=== PATIENT | female | born 1940 | race Caucasian/White ===

== ENCOUNTER 2016-05-30 12:37 | Outpatient (RCR) | payer MEDICARE, OTHER ==
[~2016-05-30 12:37] MED LIST: AC325T PO; ADV1DS PO; ALBU17AE3; ALBU5SOL10 IH; ASCO-262 PO; ASCO500T20 PO; ASP81CT PO; ASP81TEC PO; BMT1T; CA C1TAB26 PO; CAND1TAB4 PO; CEFU500T5 PO; CND32T; DCS100C PO; DOCU100T7 PO; EZET10TA5 PO; FISH OIL 1,2001 EAC1 PO; FURO20TA4 PO; GARL400T13 PO; HYDR50CA PO; IBUP-30 PO; LETR2.5T5 PO; LVT.1T PO; METH4TAB PO; NEBI5TAB8 PO; NFNEB10T PO; OMEP-10 PO; OXAZ10CA25 PO; OXAZ15CA PO; OXAZEPAM; POLY119P PO; POTA8TAB PO; PRD10T PO; TIOT18CA PO; TRAM150C3 PO; [UNRECOGNIZED DRUG - OTHER]
[2016-05-30] MEDS ORDERED: DENOSUMAB 60 MG/1 ML (PROLIA) CANCER CTR SQ SCH (14:00)
== END 2016-08-28 | disposition home or self-care (01) ==
LOC: ONC 12:37
PROVIDERS: ATTEND Internal Medicine Hematology & Oncology
DX: C50.111 Malignant neoplasm of central portion of right female breast (principal); C73 Malignant neoplasm of thyroid gland; M85.80 Other specified disorders of bone density and structure, unspecified site; I89.0 Lymphedema, not elsewhere classified; R21 Rash and other nonspecific skin eruption; J44.9 Chronic obstructive pulmonary disease, unspecified; Z17.0 Estrogen receptor positive status [ER+]; Z79.811 Long term (current) use of aromatase inhibitors; Z79.899 Other long term (current) drug therapy
CPT/HCPCS: 96372; 99213

== ENCOUNTER 2016-06-06 14:51 | Outpatient (RCR) | payer MEDICARE, OTHER | END 2016-06-06 16:40 | disposition home or self-care (01) | PROVIDERS: ATTEND Nurse Practitioner Adult Health | DX: I89.0 Lymphedema, not elsewhere classified (principal); Z85.3 Personal history of malignant neoplasm of breast ==

== ENCOUNTER 2016-09-25 21:05 | Emergency (ER) | payer MEDICARE, OTHER ==
[~2016-09-25] VITALS: Ht 147.3 cm; Wt 89.4 kg
[2016-09-25] MEDS ORDERED: ASPIRIN 81 MG CHEW (CHILDREN'S ASA) PO ONE (21:15)
--- NOTE | 2016-09-25 21:22 | ED Chest Pain ---
General Stated Complaint: CHEST PAIN,SOB Source: patient Exam Limitations: no limitations History of Present Illness Time seen by provider: 21:10 Initial Comments Here with complaint of chest heaviness for the last 2 hours. She apparently was out and about to several appointments today and was not wearing her oxygen. She states that she never wears a out because she doesn't want to be seen with it on. Chest heaviness continues but is better with oxygen. She does have COPD. Denies nausea, vomiting, weakness or diaphoresis. Timing/Duration: 1-3 hours Severity/Quality: moderate, pressure Location: central Radiation: no radiation Activities at Onset: activity Prior CP/Workup: no prior chest pain Modifying Factors: improves with oxygen, improves with rest ASA po CONTACT CENTER CONSULTANT: No NTG SL CONTACT CENTER CONSULTANT: No Associated Symptoms: No abdominal pain, No fever/chills, No nausea/vomiting, shortness of breath, No weakness Allergies and Home Medications Allergies Coded Allergies: Sulfa (Sulfonamide Antibiotics) (Unverified Allergy, Mild, HIVES, 04/21/05) codeine (Unverified Allergy, Mild, NAUSEA, 04/21/05) atorvastatin (Verified Allergy, Unknown, 04/21/05) cephalexin (Unverified Allergy, Unknown, PT HAS REC ROCEPHIN,CEFTIN & AUGMENTIN IN PAST, 12/19/11) PER DR. WASSERMAN'S OFFICE PT HAS RECEIVED ROCEPHIN, CEFTIN, AND AUGMENTIN IN PAST WITHOUT PROBLEMS doxycycline (Verified Allergy, Unknown, 04/21/05) gatifloxacin (Verified Allergy, Unknown, 04/21/05) grepafloxacin (Verified Allergy, Unknown, 04/21/05) indapamide (Unverified Allergy, Unknown, 11/21/14) penbutolol (Verified Allergy, Unknown, 04/21/05) sulfamethoxazole (Verified Allergy, Unknown, 04/21/05) trimethoprim (Verified Allergy, Unknown, 04/21/05) Home Medications Acetaminophen 325 Mg Tablet, 325 MG PO Q6H PRN, (Reported) PRN PAIN Albuterol Sulfate 5 Mg/Ml Solution, 2 PUFF IH Q4H PRN, (Reported) COPD Ascorbate Calcium 500 Mg Tablet, 500 MG PO DAILY, (Reported) Aspirin 81 Mg Tabec, 81 MG PO DAILY, (Reported) Ca Cmb No.1/Vit D3/B-6/Fa/B12 1 Each Tablet, 2,000 UNIT PO DAILY, (Reported) Candesartan Cilexetil/Hctz 1 Each Tablet, 1 TAB PO DAILY, (Reported) 32-12.5 MG Docusate Sodium 100 Mg Capsule, 100 MG PO DAILY PRN, (Reported) PRN CONSTIPATION Ezetimibe 10 Mg Tablet, 10 MG PO DAILY, (Reported) Fluticasone/Salmeterol 250 Mcg/50 Mcg Inh, 1 PUFF PO BID, (Reported) ADVAIR 250/50 MCG Furosemide 20 Mg Tablet, 20 MG PO DAILY, (Reported) Hydroxyzine Pamoate 50 Mg Capsule, 50 MG PO Q6H, #20 Prescribed by: DANNIE BARBER on 11/14/142104 Ibuprofen 200 Mg Tablet, 400 MG PO DAILY PRN, (Reported) PRN FOR KNEE PAIN Letrozole 2.5 Mg Tablet, 2.5 MG PO DAILY, (Reported) Levothyroxine Sodium 125 Mcg Tablet, 125 MCG PO DAILY, #90 (Reported) Metformin HCl 500 Mg Tab.er.24h, #180 (Reported) Methylprednisolone 4 Mg Tab.ds.pk, 4 MG PO UD, #1 Prescribed by: DANNIE BARBER on 11/14/142104 Nebivolol Hcl 5 Mg Tablet, 5 MG PO DAILY, (Reported) Omeprazole 20 Mg Capsule.dr, 20 MG PO BID, (Reported) Oxazepam 15 Mg Capsule, 15 MG PO DAILY IN AM, (Reported) TAKE ALONG WITH 10MG IN AM = TOTAL OF 25MG IN AM Oxazepam 10 Mg Capsule, 10 MG PO MORNING AND BEDTIME, (Reported) TAKES 10MG ALONG WITH 15MG IN AM AND JUST 10MG AT BEDTIME Oxazepam 10 Mg Capsule, 20 MG PO AT LUNCH & EVENING, (Reported) Polyethylene Glycol 119 Gm Btl, 17 GM PO DAILY, (Reported) Potassium Chloride 8 Meq Tablet.sa, 8 MEQ PO DAILY, (Reported) Tiotropium [place] 18 Mcg Cap.w.dev, 1 PUFF PO DAILY, (Reported) Review of Systems Constitutional: see HPI, No chills, No fever EENTM: No Symptoms Reported Respiratory: See HPI, Denies Cough, Shortness of Air Cardiovascular: Chest Pain, Denies Irregular Heart Rate, Denies Lightheadedness Gastrointestinal: Denies Abdominal Pain, Denies Diarrhea, Denies Nausea, Denies Vomiting Genitourinary: No Symptoms Reported Musculoskeletal: no symptoms reported Skin: no symptoms reported Psychiatric/Neurological: No Symptoms Reported All Other Systems Reviewed Negative Unless Noted: Yes Past [id number]-[id number] Hx Patient Social History Alcohol Use: Denies Use Recreational Drug Use: No Smoking Status: Former Smoker Former Smoker/When Quit: Mar 10, 2004 Recent Foreign Travel: No Contact w/Someone Who Travel: No Immunizations Up To Date Tetanus Booster (TDap): Less than 5yrs Date of Pneumonia Vaccine: Dec 18, 2007 Date of Influenza Vaccine: Dec 13, 2011 Surgeries HX Surgeries: Yes (D AND C'S, RIGHT HAND SX, LASER EYE SURGERY 11/08/14) Surgeries: Eye Surgery Respiratory Hx Respiratory Disorders: Yes (HOME O2 AT 2L/NC) Respiratory Disorders: Asthma, Chronic Bronchitis, COPD Cardiovascular Hx Cardiac Disorders: Yes (HOME O2 AT 2L/NC) Cardiac Disorders: Hypertension Neurological Hx Neurological Disorders: No 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 System Hx 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 Disorders: No Genitourinary Hx Genitourinary Disorders: No Gastrointestinal Hx Gastrointestinal Disorders: Yes Gastrointestinal Disorders: Chronic Constipation Musculoskeletal Hx Musculoskeletal Disorders: Yes (ARTHRITIS) Musculoskeletal Disorders: Arthritis Endocrine Hx Endocrine Disorders: Yes Endocrine Disorders: Hypothyroidsim HEENT HX ENT Disorders: Yes (BAD TEETH) HEENT Disorders: Cataract Cancer Hx Cancer: Yes Cancer: Breast Psychosocial Hx Psychiatric Problems: Yes Behavioral Health Disorders: Anxiety, Depression Integumentary HX Skin/Integumentary Disorder: Yes Skin/Integumentary Disorders: Psoriasis Blood Transfusions Hx Blood Disorders: No Reviewed Nursing Assessment Reviewed/Agree w Nursing PMH: Yes Physical Exam Vital Signs Vital Sign - Last 12Hours Capillary Refill : General Appearance: No Apparent Distress, WD/WN HEENT: PERRL/EOMI, Pharynx Normal Neck: Non Tender, Supple Respiratory: Chest Non Tender, No Respiratory Distress, Decreased Breath Sounds , No Wheezing Cardiovascular: Regular Rate, Rhythm, No Murmur Gastrointestinal: Non Tender, Soft Extremity: Normal Range of Motion, Non Tender, No Calf Tenderness Neurologic/Psychiatric: Alert, Oriented x3 Skin: Normal Color, Warm/Dry Progress/Results/Core Measures Results/Orders Lab Results Laboratory Tests Test 09/25/16 21:18 09/25/16 22:40 Range/Units White Blood Count 12.2 H 4.3-11.0 10^3/uL Red Blood Count 3.86 L 4.35-5.85 10^6/uL Hemoglobin 11.4 L 11.5-16.0 G/DL Hematocrit 35 35-52 % Mean Corpuscular Volume 89 80-99 FL Mean Corpuscular Hemoglobin 30 25-34 PG Mean Corpuscular Hemoglobin Concent 33 32-36 G/DL Red Cell Distribution Width 13.6 10.0-14.5 % Platelet Count 358 130-400 10^3/uL Mean Platelet Volume 10.7 H 7.4-10.4 FL Neutrophils (%) (Auto) 77 H 42-75 % Lymphocytes (%) (Auto) 15 12-44 % Monocytes (%) (Auto) 6 0-12 % Eosinophils (%) (Auto) 2 0-10 % Basophils (%) (Auto) 1 0-10 % Neutrophils # (Auto) 9.4 H 1.8-7.8 X 10^3 Lymphocytes # (Auto) 1.8 1.0-4.0 X 10^3 Monocytes # (Auto) 0.7 0.0-1.0 X 10^3 Eosinophils # (Auto) 0.2 0.0-0.3 10^3/uL Basophils # (Auto) 0.1 0.0-0.1 10^3/uL Prothrombin Time 11.9 L 12.2-14.7 SEC INR Comment 0.9 0.8-1.4 Activated Partial Thromboplast Time 26 24-35 SEC Sodium Level 136 135-145 MMOL/L Potassium Level 3.8 3.6-5.0 MMOL/L Chloride Level 95 L 98-107 MMOL/L Carbon Dioxide Level 27 21-32 MMOL/L Anion Gap 14 5-14 MMOL/L Blood Urea Nitrogen 18 7-18 MG/DL Creatinine 0.96 0.60-1.30 MG/DL Estimat Glomerular Filtration Rate 56 BUN/Creatinine Ratio 19 Glucose Level 113 H 70-105 MG/DL Calcium Level 9.1 8.5-10.1 MG/DL Magnesium Level 1.8 1.8-2.4 MG/DL Total Bilirubin 0.4 0.1-1.0 MG/DL Aspartate Amino Transf (AST/SGOT) 14 5-34 U/L Alanine Aminotransferase (ALT/SGPT) 13 0-55 U/L Alkaline Phosphatase 86 40-136 U/L Myoglobin 70.3 10.0-92.0 NG/ML Troponin I < 0.30 < 0.30 <0.30 NG/ML B-Type Natriuretic Peptide 61.5 <100.0 PG/ML Total Protein 6.7 6.4-8.2 GM/DL Albumin 4.0 3.2-4.5 GM/DL My Orders Orders - KATE MO MD Cbc With Automated Diff (09/25/16 21:09) Magnesium (09/25/16 21:09) Chest 1 View, Ap/Pa Only (09/25/16 21:09) Ekg Tracing (09/25/16 21:09) Cardiac Profile 1 (09/25/16 21:) Comprehensive Metabolic Panel (09/25/16 21:) Myoglobin Serum (09/25/16:) Protime With Inr (09/25/16 21:09) Partial Thromboplastin Time (09/25/16 21:09) O2 (09/25/16 21:09) Monitor-Rhythm Ecg Trace Only (09/25/16 21:09) Lipid Panel (09/26/16 06:00) Aspirin Chewable Tablet (Baby Aspirin Ch (09/25/16 21:15) Saline Lock/Iv-Start (09/25/16 21:09) Albuterol/Ipra Inhalation Soln (Duoneb I (09/25/16 21:30) Svn Sm Volume Nebulizer Rt-Rfs (09/25/16 21:22) BNP (09/25/16 21:25) Albuterol Pre-Mix Nebs (Rt) (Proventil P (09/25/16 21:40) Troponin I (09/25/16 22:39) Prednisone Tablet (Deltasone Tablet) (09/25/16 22:45) Ekg Tracing (09/25/16 22:48) Medications Given in ED Current Medications Medications Dose Ordered Sig/Wili Route Start Time Stop Time Status Last Admin Dose Admin Albuterol Sulfate 2.5 mg STK-MED ONCE .ROUTE 09/25/16 21:40 09/25/16 21:46 DC 09/25/16 21:54 5 MG Albuterol/ Ipratropium 3 ml ONCE ONCE INH 09/25/16 21:30 09/25/16 21:31 DC 09/25/16 21:51 3 ML Aspirin 324 mg ONCE ONCE PO 09/25/16 21:15 09/25/16 21:16 DC 09/25/16 21:25 324 MG Prednisone 20 mg ONCE ONCE PO 09/25/16 22:45 09/25/16 22:46 DC 09/25/16 22:54 20 MG Vital Signs/I&O Vital Sign - Last 12Hours 09/25/16 09/25/16 09/25/16 09/25/16 21:06 21:06 21:06 21:51 Temp 98.6 Pulse 77 Resp 22 B/P (MAP) 134/91 Pulse Ox 95 95 97 O2 Delivery Nasal Cannula Nasal Cannula Nasal Cannula O2 Flow Rate 2.00 2.00 2.00 2.00 09/25/16 21:54 Pulse Ox 97 O2 Delivery Nasal Cannula O2 Flow Rate 2.00 Progress Note : Progress Note Seen and evaluated. IV, labs, EKG and chest x-ray ordered. ASA 324 mg by mouth given. Duo neb ordered. This did help but remains diminished. Albuterol treatment 2 ordered. Monitor patient. This did markedly improve her symptoms. 2240: I did discuss with the patient about potentially using some prednisone. She was initially resistant but then states that she would do low dose for short-term if that would help. We will initiate prednisone 20 mg by mouth daily for the next 4 days. We will recheck troponin now and is negative discharged home for follow-up with her doctor. Patient was in agreement with plan. 2325: Overall remains are currently improved. Repeat troponin negative. Discharged home with return precautions. Patient verbalize understanding instructions and agreement with plan. ECG Initial ECG Impression Date: Sep 25, 2016 Initial ECG Impression Time: 21:10 Initial ECG Rate: 78 Initial ECG Rhythm: Normal Sinus Comment Sinus rhythm with normal axis. No evidence of ST elevation AR. Similar to previous of 12/12/11. Interpreted by me. EKG : EKG Time: 22:52 Rate: 78 Rhythm: Normal Sinus Comment Sinus rhythm with normal axis. No evidence of ST elevation AR. Overall similar to previous done earlier today. Interpreted by me. Diagnostic Imaging Diagonstic Imaging: Xray Plain Films/CT/US/NM/MRI: chest Comments Chronic lung disease but no acute findings Reviewed: Reviewed by Me Departure Impression Impression: Primary Impression: COPD with acute exacerbation Disposition: 01 HOME, SELF-CARE Condition: Improved Departure-Patient Inst. Decision time for Depature: 23:29 Referrals: NO,LOCAL PHYSICIAN (PCP) Primary Care Physician Patient Instructions: Chronic Obstructive Pulmonary Disease (COPD), Including Emphysema Add. Discharge Instructions: Take medications as directed. Follow up with your doctor in the next one to 2 days for recheck and further evaluation. You should wear your oxygen during the day when you're on especially during times of extreme heat such as currently. Return for worse pain, fever, vomiting, weakness, breathing problems or other concerns as needed. Scripts Prednisone (Prednisone) 20 Mg Tab 20 MG PO DAILY, #3 TAB 0 Refills Prov: KATE MO MD 09/25/16 Copy Copies To 1: EDVIN WASSERMAN MD, TIMOTHY D MD Sep 25, 2016 21:22
[2016-09-25 21:28] LABS: BASOPHILS # (AUTO) 0.1 10^3/uL (0.0-0.1); BASOPHILS % (AUTO) 1 % (0-10); EOSINOPHILS # (AUTO) 0.2 10^3/uL (0.0-0.3); EOSINOPHILS % (AUTO) 2 % (0-10); LYMPHOCYTES # (AUTO) 1.8 X 10^3 (1.0-4.0); LYMPHOCYTES % (AUTO) 15 % (12-44); MEAN CORPUSCULAR HEMOGLOBIN 30 PG (25-34); MEAN CORPUSCULAR HGB CONC 33 G/DL (32-36); MEAN CORPUSCULAR VOLUME 89 FL (80-99); MEAN PLATELET VOLUME 10.7 FL (7.4-10.4); MONOCYTES # (AUTO) 0.7 X 10^3 (0.0-1.0); MONOCYTES % (AUTO) 6 % (0-12); NEUTROPHILS # (AUTO) 9.4 X 10^3 (1.8-7.8); NEUTROPHILS % (AUTO) 77 % (42-75); PLATELET COUNT 358 10^3/uL (130-400); RED BLOOD COUNT 3.86 10^6/uL (4.35-5.85); RED CELL DISTRIBUTION WIDTH 13.6 % (10.0-14.5); WHITE BLOOD COUNT 12.2 10^3/uL (4.3-11.0)
[2016-09-25] MEDS ORDERED: RT-ALBUTEROL/IPRATROPIUM 3 ML (DUONEB) VIAL INH ONE (21:30)
[2016-09-25 21:36] LABS: INR 0.9 (0.8-1.4); PROTHROMBIN TIME PATIENT 11.9 SEC (12.2-14.7)
[2016-09-25] MEDS ORDERED: RT-ALBUTEROL SULF 2.5 MG/3 ML PRE-MIX VIAL ONE (21:40)
[2016-09-25] MEDS ORDERED: LEVO125T6 PO (21:42)
[2016-09-25] MEDS ORDERED: METF500T8 (21:42)
[2016-09-25 22:07] LABS: MYOGLOBIN SERUM 70.3 NG/ML (10.0-92.0)
[2016-09-25 22:19] LABS: ALANINE AMINOTRANSFERASE 13 U/L (0-55); ANION GAP 14 MMOL/L (5-14); ASPARTATE AMINO TRANSFERASE 14 U/L (5-34); BILIRUBIN,TOTAL 0.4 MG/DL (0.1-1.0); BLOOD UREA NITROGEN 18 MG/DL (7-18); BUN/CREATININE RATIO 19; CALCIUM 9.1 MG/DL (8.5-10.1); CARBON DIOXIDE 27 MMOL/L (21-32); CHLORIDE 95 MMOL/L (98-107); CREATININE SERUM 0.96 MG/DL (0.60-1.30); GFR ESTIMATED 56; GLUCOSE 113 MG/DL (70-105); MAGNESIUM 1.8 MG/DL (1.8-2.4); POTASSIUM 3.8 MMOL/L (3.6-5.0); SODIUM 136 MMOL/L (135-145); TOTAL PROTEIN 6.7 GM/DL (6.4-8.2)
[2016-09-25] MEDS ORDERED: predniSONE 20 MG TAB PO ONE (22:45)
[2016-09-25] MEDS ORDERED: PRD20T PO (23:31)
[2016-09-25 23:57] VITALS: BP 130/75
--- NOTE | 2016-09-26 00:07 | Diagnostic Imaging Report ---
EXAM: CHEST 1 VIEW, AP/PA ONLY INDICATION: Chest heaviness. COMPARISON: Chest radiographs 12/07/2014. FINDINGS: Stable cardiomegaly. Normal pulmonary vascularity. Calcified aorta. Stable scarring and/or atelectasis in the lung bases. No new focal pulmonary opacity, pleural effusion or pneumothorax. No acute osseous findings. Surgical clips in the right chest wall. No significant change. IMPRESSION: No acute cardiopulmonary findings. Dictated by: Dictated on workstation # [id number]
--- OUTSIDE RECORDS SUMMARY | 2016-10-03 02:19 | XMS REPORT | Continuity of Care Document ---
Demographics Preferred Language Unknown Marital Status Unknown Catholic Affiliation Unknown Race Unknown Ethnic Group Unknown Author Author Formerly [facility], Later [facility] Address Unknown Phone Unavailable Allergies Active Description Code Type Severity Reaction Onset Reported/Identified Relationship to Patient Clinical Status Yes codeine [id number] Drug Allergy Mild NAUSEA 04/21/2005 Yes Sulfa (Sulfonamide Antibiotics) [id number] Drug Allergy Mild HIVES 04/21/2005 Yes atorvastatin [id number] Drug Allergy Unknown N/A 04/21/2005 Yes doxycycline [id number] Drug Allergy Unknown N/A 04/21/2005 Yes gatifloxacin [id number] Drug Allergy Unknown N/A 04/21/2005 Yes grepafloxacin [id number] Drug Allergy Unknown N/A 04/21/2005 Yes penbutolol [id number] Drug Allergy Unknown N/A 04/21/2005 Yes sulfamethoxazole [id number] Drug Allergy Unknown N/A 04/21/2005 Yes trimethoprim [id number] Drug Allergy Unknown N/A 04/21/2005 Yes cephalexin [id number] Drug Allergy Unknown PT HAS REC ROCE 12/19/2011 Yes indapamide [id number] Drug Allergy Unknown N/A 11/21/2014 Medications Problems Date Dx Coded Attending Type Code Diagnosis Diagnosed By 02/06/1639 SERGIO SWANSON Ot I89.0 LYMPHEDEMA, NOT ELSEWHERE CLASSIFIED 02/06/1639 SERGIO SWANSONP Ot Z85.3 PERSONAL HISTORY OF MALIGNANT NEOPLASM O 02/10/2010 Ot 038.9 02/10/2010 Ot 300.00 02/10/2010 Ot 305.1 02/10/2010 Ot 401.9 02/10/2010 Ot 486 02/10/2010 Ot 496 02/10/2010 Ot 696.1 02/10/2010 Ot 995.91 06/11/2010 Ot 496 CHR AIRWAY OBSTRUCT NEC 06/11/2010 Ot V46.2 SUPPLEMENTAL OXYGEN 06/11/2010 Ot V57.89 REHABILITATION PROC NEC 09/10/2010 Ot 496 CHR AIRWAY OBSTRUCT NEC 09/10/2010 Ot V46.2 SUPPLEMENTAL OXYGEN 09/10/2010 Ot V57.89 REHABILITATION PROC NEC 12/10/2010 Ot 241.0 NONTOX UNINODULAR GOITER 12/10/2010 Ot 414.01 CORONARY ATHEROSCLEROSIS OF [place] CORON 12/10/2010 Ot 496 CHR AIRWAY OBSTRUCT NEC 12/10/2010 Ot 518.0 PULMONARY COLLAPSE 12/10/2010 Ot 611.72 LUMP OR MASS IN BREAST 12/10/2010 Ot 722.51 THORACIC DISC DEGEN 12/10/2010 Ot 786.2 COUGH 12/10/2010 Ot 791.9 ABN URINE FINDINGS NEC 03/11/2011 Ot 465.9 ACUTE URI NOS 03/11/2011 Ot 786.2 COUGH 06/02/2011 Ot 465.9 ACUTE URI NOS 06/02/2011 Ot 786.2 COUGH 07/28/2011 Ot 521.00 UNSPEC DENTAL CARIES 07/28/2011 Ot 787.02 NAUSEA ALONE 07/28/2011 Ot E935.8 ADV EFF ANALGESICS NEC 12/20/2011 Ot 174.3 MAL RADHA BREAST LOW-INNER 12/20/2011 Ot 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 12/20/2011 Ot 401.9 HYPERTENSION NOS 12/20/2011 Ot 493.90 ASTHMA, UNSPECIFIED 12/20/2011 Ot V58.69 OTH MED,LT,CURRENT USE 12/29/2011 Ot 564.00 UNSPEC CONSTIPATION 12/29/2011 Ot 786.04 FRANCES-CHRISTIAN RESPIRATION 12/29/2011 Ot 789.04 ABDOMINAL PAIN, LEFT LOWER QUADRANT 01/22/2012 Ot 174.9 MALIGN NEOPL BREAST NOS 01/22/2012 Ot V45.71 ACQUIRED ABSENCE OF BREAST AND NIPPLE 01/22/2012 Ot V57.21 ENCOUNTER FOR OCCUPATIONAL THERAPY 04/05/2012 Ot 174.3 MAL RADHA BREAST LOW-INNER 04/05/2012 Ot 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 04/05/2012 Ot 272.0 PURE HYPERCHOLESTEROLEM 04/05/2012 Ot 401.9 HYPERTENSION NOS 04/05/2012 Ot 491.20 OBSTR CHRONIC BRONCHITIS, W/O EXACERBATI 04/05/2012 Ot V12.61 PERSONAL HISTORY, PNEUMONIA (RECURRENT) 04/05/2012 Ot V15.82 HISTORY OF TOBACCO USE 04/05/2012 Ot V16.1 FM HX-TRACH/BRONCHOG MAL 04/05/2012 Ot V16.3 FAMILY HX-BREAST MALIG 04/05/2012 Ot V58.0 ENCOUNTER FOR RADIOTHERAPY 04/05/2012 Ot V58.66 LONG-TERM (CURRENT) USE OF ASPIRIN 04/05/2012 Ot V58.69 OTH MED,LT,CURRENT USE 04/21/2012 Ot 174.9 MALIGN NEOPL BREAST NOS 04/21/2012 Ot 457.1 OTHER LYMPHEDEMA 04/21/2012 Ot V57.21 ENCOUNTER FOR OCCUPATIONAL THERAPY 05/20/2012 V06.1 TDAP DX 06/13/2012 Ot 174.9 MALIGN NEOPL BREAST NOS 06/13/2012 Ot 193 MALIGN NEOPL THYROID 07/05/2012 Ot 174.3 MAL RADHA BREAST LOW-INNER 07/05/2012 Ot 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 07/05/2012 Ot 241.0 NONTOX UNINODULAR GOITER 07/05/2012 Ot 457.1 OTHER LYMPHEDEMA 07/05/2012 Ot 585.3 CHRONIC KIDNEY DISEASE, STAGE III (MODER 07/05/2012 Ot 733.90 BONE CARTILAGE DIS NOS 07/05/2012 Ot V58.0 ENCOUNTER FOR RADIOTHERAPY 07/05/2012 Ot V58.69 OT MED,LT,CURRENT USE 07/05/2012 Ot V86.0 ESTROGEN RECEPTOR POSITIVE STATUS [ER+] 12/08/2012 LUX CONNOLLY, EDVIN Cortez Ot 211.3 BENIGN NEOPLASM LG BOWEL 12/08/2012 LUX CONNOLLY, EDVIN Cortez Ot 455.0 INT HEMORRHOID W/O COMPL 12/08/2012 EDVIN WASSERMAN MD Ot 562.10 DIVERTICULOSIS COLON (W/O MENT OF HEMORR 12/08/2012 LUX CONNOLLY, EDVIN Cortez Ot V12.72 PERSONAL HISTORY OF COLONIC POLYPS 12/08/2012 EDVIN WASSERMAN MD Ot V76.12 OTH SCREEN MAMMO-MALIGN NEOPLASM OF [place] 03/25/2013 MARÍA ELENA PUGH N Ot 174.9 MALIGN NEOPL BREAST NOS 03/25/2013 MARÍA ELENA PUGH N Ot 457.1 OTHER LYMPHEDEMA 03/25/2013 MARÍA ELENA PUGH N Ot V57.21 ENCOUNTER FOR OCCUPATIONAL THERAPY 05/19/2013 MARÍA ELENA PUGH N Ot 174.9 MALIGN NEOPL BREAST NOS 05/19/2013 MARÍA ELENA PUGH N Ot 457.1 OTHER LYMPHEDEMA 05/19/2013 MARÍA ELENA PUGH N Ot V57.21 ENCOUNTER FOR OCCUPATIONAL THERAPY 09/06/2013 MARÍA ELENA PUGH N Ot 174.9 MALIGN NEOPL BREAST NOS 09/06/2013 LEXY, MARÍA ELENA N Ot 193 MALIGN NEOPL THYROID 09/06/2013 LEXY, MARÍA ELENA N Ot 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 09/06/2013 JOSEMANUEL PUGHBERTIN N Ot 457.1 OTHER LYMPHEDEMA 09/06/2013 LEXY MARÍA ELENA N Ot 496 CHR AIRWAY OBSTRUCT NEC 09/06/2013 LEXY MARÍA ELENA N Ot 585.3 CHRONIC KIDNEY DISEASE, STAGE III (MODER 09/06/2013 LEXYJOSEMANUEL UGALDEBERTIN N Ot 733.90 BONE CARTILAGE DIS NOS 09/06/2013 LEXYMARÍA ELENA UGALDE N Ot V10.3 HX OF BREAST MALIGNANCY 09/06/2013 MARÍA ELENA PUGH N Ot V58.69 OTH MED,LT,CURRENT USE 09/06/2013 LEXYMARÍA ELENA N Ot V86.0 ESTROGEN RECEPTOR POSITIVE STATUS [ER+] 09/16/2013 LEXY, MARÍA ELENA N Ot 174.9 MALIGN NEOPL BREAST NOS 09/16/2013 LEXY JOSEMANUELAN N Ot 457.1 OTHER LYMPHEDEMA 09/16/2013 LEXYMARÍA ELENA UGALDE N Ot V57.21 ENCOUNTER FOR OCCUPATIONAL THERAPY 12/12/2013 LEXY MARÍA ELENA N Ot 174.9 MALIGN NEOPL BREAST NOS 12/12/2013 LEXY JOSEMANUELAN N Ot 193 MALIGN NEOPL THYROID 12/12/2013 LEXY MARÍA ELENA N Ot 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 12/12/2013 LEXY MARÍA ELENA N Ot 457.1 OTHER LYMPHEDEMA 12/12/2013 LEXY MARÍA ELENA N Ot 496 CHR AIRWAY OBSTRUCT NEC 12/12/2013 LEXY MARÍA ELENA N Ot 585.3 CHRONIC KIDNEY DISEASE, STAGE III (MODER 12/12/2013 LEXY BOBAN N Ot 733.90 BONE CARTILAGE DIS NOS 12/12/2013 LEXY MARÍA ELENA N Ot V10.3 HX OF BREAST MALIGNANCY 12/12/2013 MARÍA ELENA PUGH N Ot V58.69 OTH MED,LT,CURRENT USE 12/12/2013 LEXY JOSEMANUELAN N Ot V86.0 ESTROGEN RECEPTOR POSITIVE STATUS [ER+] 02/01/2014 Ot 174.9 02/01/2014 Ot 240.9 02/01/2014 Ot 174.9 02/01/2014 Ot 241.0 02/01/2014 Ot 174.9 02/01/2014 Ot 196.3 02/01/2014 Ot 241.0 02/01/2014 Ot 457.1 02/01/2014 Ot V15.3 02/01/2014 Ot V58.69 02/01/2014 Ot V86.0 02/01/2014 Ot 733.90 02/01/2014 Ot V49.81 02/01/2014 Ot V82.81 02/01/2014 Ot 241.1 02/01/2014 Ot 780.79 02/01/2014 Ot V72.83 02/01/2014 Ot V74.8 02/01/2014 LEXY, JOSEMANUELAN N Ot 174.3 02/01/2014 LEXY, JOSEMANUELAN N Ot 196.3 02/01/2014 LUX CONNOLLY, EDVIN Cortez Ot 782.3 02/01/2014 EDVIN WASSERMAN MD Ot 786.05 02/01/2014 LEXY, JOSEMANUELAN N Ot 174.9 02/01/2014 LEXY, MARÍA ELENA N Ot V15.3 02/01/2014 LEXY, BOBAN N Ot V45.89 02/01/2014 LEXY, BOBAN N Ot 174.9 02/01/2014 LEXY, BOBAN N Ot 193 02/01/2014 SERGIO SWANSON MUSIC PUBLISHER Ot 174.9 02/01/2014 SERGIO SWANSON MUSIC PUBLISHER Ot 193 02/01/2014 LEXY, JOSEMANUELAN N Ot V10.3 02/01/2014 EDVIN WASSERMAN MD Ot V72.84 02/01/2014 LEXY, BOBAN N Ot 193 02/01/2014 LEXY, BOBAN N Ot 174.9 02/01/2014 LEXY, BOBAN N Ot 193 02/01/2014 LEXY, BOBAN N Ot 196.3 02/01/2014 ELXY, BOBAN N Ot 457.1 02/01/2014 LEXY, BOBAN N Ot 585.3 02/01/2014 LEXY, BOBAN N Ot V15.3 02/01/2014 LEXY, BOBAN N Ot V58.69 02/01/2014 LEXY, JOSEMANUELAN N Ot V86.0 02/01/2014 SERGIO SWANSON MUSIC PUBLISHER Ot 174.9 02/01/2014 SWANSONSERGIO Miles S MUSIC PUBLISHER Ot 193 02/01/2014 SERGIO SWANSON S MUSIC PUBLISHER Ot 196.3 02/01/2014 SERGIO SWANSON S MUSIC PUBLISHER Ot 457.1 02/01/2014 SERGIO SWANSON S MUSIC PUBLISHER Ot 496 02/01/2014 SERGIO SWANSON S MUSIC PUBLISHER Ot 585.3 02/01/2014 SERGIO SWANSON S MUSIC PUBLISHER Ot 686.9 02/01/2014 SERGIO SWANSON S MUSIC PUBLISHER Ot 733.90 02/01/2014 SERGIO SWANSON S MUSIC PUBLISHER Ot 883.0 02/01/2014 SERGIO SWANSON S MUSIC PUBLISHER Ot E000.8 02/01/2014 SERGIO SWASNON S MUSIC PUBLISHER Ot E906.8 02/01/2014 SERGIO SWANSON S MUSIC PUBLISHER Ot V15.3 02/01/2014 SWANSONSERGIO Miles S MUSIC PUBLISHER Ot V58.69 02/01/2014 SWANSONSERGIO Miles S MUSIC PUBLISHER Ot V86.0 02/01/2014 SWANSONSERGIO Miles S MUSIC PUBLISHER Ot 174.9 02/01/2014 SWANSONSERGIO Miles S MUSIC PUBLISHER Ot 193 02/01/2014 SERGIO SWANSON S MUSIC PUBLISHER Ot 196.3 02/01/2014 SERGIO SWANSON S MUSIC PUBLISHER Ot 457.1 02/01/2014 SERGIO SWANSON S MUSIC PUBLISHER Ot 585.3 02/01/2014 SERGIO SWANSON S MUSIC PUBLISHER Ot V15.3 02/01/2014 SERGIO SWANSON S MUSIC PUBLISHER Ot V58.69 02/01/2014 SERGIO SWANSON S MUSIC PUBLISHER Ot V86.0 02/01/2014 SERGIO SWANSON S MUSIC PUBLISHER Ot 174.9 02/01/2014 SWANSONSERGIO Miles S MUSIC PUBLISHER Ot 733.90 02/01/2014 SWANSONSERGIO Miles S MUSIC PUBLISHER Ot V07.59 02/01/2014 SWANSONSERGIO Miles S MUSIC PUBLISHER Ot 174.9 02/01/2014 SWANSONSERGIO Miles S MUSIC PUBLISHER Ot 733.90 02/01/2014 SWANSONSERGIO Miles S MUSIC PUBLISHER Ot V07.59 02/01/2014 MARÍA ELENA PUGH Ot 174.9 02/01/2014 MARÍA ELENA PUGH N Ot 193 02/01/2014 MARÍA ELENA PUGH N Ot 196.3 02/01/2014 MARÍA ELENA PUGH N Ot 457.1 02/01/2014 MARÍA ELENA PUGH N Ot 496 02/01/2014 LEXYMARÍA ELENA UGALDE N Ot 585.3 02/01/2014 MARÍA ELENA PUGH N Ot 733.90 02/01/2014 MARÍA ELENA PUGH N Ot V10.3 02/01/2014 MARÍA ELENA PUGH N Ot V58.69 02/01/2014 MARÍA ELENA PUGH N Ot V86.0 02/28/2014 KIKI SERGIO S MUSIC PUBLISHER Ot 174.9 02/28/2014 KIKI SERGIO S MUSIC PUBLISHER Ot 193 02/28/2014 KIKI SERGIO S MUSIC PUBLISHER Ot 196.3 02/28/2014 KIKI SERGIO S MUSIC PUBLISHER Ot 457.1 02/28/2014 KIKI SERGIO S MUSIC PUBLISHER Ot 585.3 02/28/2014 ELIZABETH SWANSONLOVE S MUSIC PUBLISHER Ot 719.45 02/28/2014 KIKI SERGIO S MUSIC PUBLISHER Ot 724.1 02/28/2014 KIKI SERGIO S MUSIC PUBLISHER Ot 733.90 02/28/2014 KIKI SERGIO S MUSIC PUBLISHER Ot V15.3 02/28/2014 KIKI SERGIO S MUSIC PUBLISHER Ot V58.69 02/28/2014 KIKI SERGIO S MUSIC PUBLISHER Ot V86.0 03/09/2014 ELIZABETH SWANSONLOVE S MUSIC PUBLISHER Ot 174.9 03/09/2014 SERGIO SWANSON S MUSIC PUBLISHER Ot 193 03/09/2014 KIKI SERGIO S MUSIC PUBLISHER Ot 196.3 03/09/2014 KIKI SERGIO S MUSIC PUBLISHER Ot 457.1 03/09/2014 KIKI SERGIO S MUSIC PUBLISHER Ot 585.3 03/09/2014 KIKI ELIZABETHAH S MUSIC PUBLISHER Ot 719.45 03/09/2014 KIKI ELIZABETHAH S MUSIC PUBLISHER Ot 724.1 03/09/2014 KIKI SERGIO S MUSIC PUBLISHER Ot 733.90 03/09/2014 ELIZABETH SWANSONLOVE S MUSIC PUBLISHER Ot V15.3 03/09/2014 ELIZABETH SWANSONLOVE S MUSIC PUBLISHER Ot V58.69 03/09/2014 SERGIO SWANSON MUSIC PUBLISHER Ot V86.0 03/09/2014 SERGIO SWANSON S MUSIC PUBLISHER Ot 174.9 03/09/2014 SERGIO SWANSON S MUSIC PUBLISHER Ot 574.20 03/09/2014 SERGIO SWANSON S MUSIC PUBLISHER Ot 724.1 03/09/2014 SERGIO SWANSON S MUSIC PUBLISHER Ot 724.2 03/09/2014 SERGIO SWANSON S MUSIC PUBLISHER Ot 174.9 03/09/2014 SERGIO SWANSON S MUSIC PUBLISHER Ot 193 03/09/2014 SERGIO SWANSON S MUSIC PUBLISHER Ot 196.3 03/09/2014 SERGIO SWANSON S MUSIC PUBLISHER Ot 457.1 03/09/2014 SWANSONSERGIO Miles S MUSIC PUBLISHER Ot 585.3 03/09/2014 SWANSONSERGIO Miles S MUSIC PUBLISHER Ot 719.45 03/09/2014 SWANSONSERGIO Miles S MUSIC PUBLISHER Ot 724.1 03/09/2014 SWANSONSERGIO Miles S MUSIC PUBLISHER Ot 733.90 03/09/2014 SWANSONSERGIO Miles S MUSIC PUBLISHER Ot V15.3 03/09/2014 SWANSONSERGIO Miles S MUSIC PUBLISHER Ot V58.69 03/09/2014 SWANSONSERGIO Miles S MUSIC PUBLISHER Ot V86.0 03/15/2014 SWANSONSERGIO Miles S MUSIC PUBLISHER Ot 174.9 03/15/2014 SWANSONSERGIO Miles S MUSIC PUBLISHER Ot 574.20 03/15/2014 SWANSONSERGIO Miles S MUSIC PUBLISHER Ot 724.1 03/15/2014 SWANSONSERGIO Miles S MUSIC PUBLISHER Ot 724.2 03/17/2014 SWANSONSERGIO Miles S MUSIC PUBLISHER Ot 174.9 03/17/2014 SWANSONSERGIO Miles S MUSIC PUBLISHER Ot 193 03/17/2014 SWANSONSERGIO Miles S MUSIC PUBLISHER Ot 196.3 03/17/2014 SWANSONSERGIO Miles S MUSIC PUBLISHER Ot 457.1 03/17/2014 SWANSONSERGIO Miles S MUSIC PUBLISHER Ot 585.3 03/17/2014 SWANSONSERGIO Miles S MUSIC PUBLISHER Ot 719.45 03/17/2014 SWANSONSERGIO S MUSIC PUBLISHER Ot 724.1 03/17/2014 KIKI SERGIO S MUSIC PUBLISHER Ot 733.90 03/17/2014 KIKISERGIO S MUSIC PUBLISHER Ot V15.3 03/17/2014 SERGIO SWANSON MUSIC PUBLISHER Ot V58.69 03/17/2014 SERGIO SWANSON MUSIC PUBLISHER Ot V86.0 03/31/2014 Ot 174.9 03/31/2014 Ot 240.9 03/31/2014 Ot 174.9 03/31/2014 Ot 241.0 03/31/2014 Ot 174.9 03/31/2014 Ot 196.3 03/31/2014 Ot 241.0 03/31/2014 Ot 457.1 03/31/2014 Ot V15.3 03/31/2014 Ot V58.69 03/31/2014 Ot V86.0 03/31/2014 Ot 733.90 03/31/2014 Ot V49.81 03/31/2014 Ot V82.81 03/31/2014 Ot 241.1 03/31/2014 Ot 780.79 03/31/2014 Ot V72.83 03/31/2014 Ot V74.8 03/31/2014 LEXY, BOBAN N Ot 174.3 03/31/2014 LEXY, BOBAN N Ot 196.3 03/31/2014 LUX CONNOLLY, EDVIN Cortez Ot 782.3 03/31/2014 EDVIN WASSERMAN MD Ot 786.05 03/31/2014 LEXY, BOBAN N Ot 174.9 03/31/2014 LEXY, BOBAN N Ot V15.3 03/31/2014 LEXY, BOBAN N Ot V45.89 03/31/2014 LEXY, BOBAN N Ot 174.9 03/31/2014 LEXY, BOBAN N Ot 193 03/31/2014 SWANSONSERGIO Miles MUSIC PUBLISHER Ot 174.9 03/31/2014 SERGIO SWANSON MUSIC PUBLISHER Ot 193 03/31/2014 LEXY, BOBAN N Ot V10.3 03/31/2014 EDVIN WASSERMAN MD Ot V72.84 03/31/2014 LEXY, BOBAN N Ot 193 03/31/2014 LEXY, BOBAN N Ot 174.9 03/31/2014 LEXY, BOBAN N Ot 193 03/31/2014 LEXY, BOBAN N Ot 196.3 03/31/2014 LEXY, BOBAN N Ot 457.1 03/31/2014 LEXY, BOBAN N Ot 585.3 03/31/2014 MARÍA ELENA PUGH N Ot V15.3 03/31/2014 MARÍA ELENA PUGH N Ot V58.69 03/31/2014 MARÍA ELENA PUGH N Ot V86.0 03/31/2014 SERGIO SWANSON MUSIC PUBLISHER Ot 174.9 03/31/2014 SWANSONSERGIO Miles S MUSIC PUBLISHER Ot 193 03/31/2014 SWANSONSERGIO Miles S MUSIC PUBLISHER Ot 196.3 03/31/2014 SWANSONSERGIO Miles S MUSIC PUBLISHER Ot 457.1 03/31/2014 SWANSONSERGIO Miles S MUSIC PUBLISHER Ot 496 03/31/2014 SWANSONSERGIO Miles S MUSIC PUBLISHER Ot 585.3 03/31/2014 SWANSONSERGIO Miles S MUSIC PUBLISHER Ot 686.9 03/31/2014 SWANSONSERGIO S MUSIC PUBLISHER Ot 733.90 03/31/2014 SWANSONSERGIO S MUSIC PUBLISHER Ot 883.0 03/31/2014 SWANSONSERGIO Miles S MUSIC PUBLISHER Ot E000.8 03/31/2014 SWANSONSERGIO S MUSIC PUBLISHER Ot E906.8 03/31/2014 SWANSONSERGIO Miles S MUSIC PUBLISHER Ot V15.3 03/31/2014 SWANSONSERGIO Miles S MUSIC PUBLISHER Ot V58.69 03/31/2014 SWANSONSERGIO Miles S MUSIC PUBLISHER Ot V86.0 03/31/2014 SWANSONSERGIO Miles S MUSIC PUBLISHER Ot 174.9 03/31/2014 SWANSONSERGIO S MUSIC PUBLISHER Ot 193 03/31/2014 SWANSONSERGIO Miles S MUSIC PUBLISHER Ot 196.3 03/31/2014 SWANSONSERGIO Miles S MUSIC PUBLISHER Ot 457.1 03/31/2014 SWANSONSERGIO Miles S MUSIC PUBLISHER Ot 585.3 03/31/2014 SWANSONSERGIO Miles S MUSIC PUBLISHER Ot V15.3 03/31/2014 SWANSONSERGIO Miles S MUSIC PUBLISHER Ot V58.69 03/31/2014 SWANSONSERGIO S MUSIC PUBLISHER Ot V86.0 03/31/2014 SWANSONSERGIO S MUSIC PUBLISHER Ot 174.9 03/31/2014 KIKISERGIO S MUSIC PUBLISHER Ot 733.90 03/31/2014 KIKI SERGIO S MUSIC PUBLISHER Ot V07.59 03/31/2014 KIKI SERGIO S MUSIC PUBLISHER Ot 174.9 03/31/2014 SWANSONSERGIO Miles MUSIC PUBLISHER Ot 733.90 03/31/2014 SWANSONSERGIO Miles MUSIC PUBLISHER Ot V07.59 03/31/2014 LEXY, MARÍA ELENA N Ot 174.9 03/31/2014 LEXY, JOSEMANUELAN N Ot 193 03/31/2014 LEXY, JOSEMANUELAN N Ot 196.3 03/31/2014 LEXY, MARÍA ELENA N Ot 457.1 03/31/2014 LEXY, MARÍA ELENA N Ot 496 03/31/2014 LEXY, JOSEMANUELAN N Ot 585.3 03/31/2014 LEXY, BOBAN N Ot 733.90 03/31/2014 LEXY, MARÍA ELENA N Ot V10.3 03/31/2014 LEXY, MARÍA ELENA N Ot V58.69 03/31/2014 LEXY, MARÍA ELENA N Ot V86.0 03/31/2014 SERGIO SWANSON S MUSIC PUBLISHER Ot 174.9 03/31/2014 SWANSONSERGIO S MUSIC PUBLISHER Ot 193 03/31/2014 SWANSONSERGIO S MUSIC PUBLISHER Ot 196.3 03/31/2014 SWANSONSERGIO Miles S MUSIC PUBLISHER Ot 457.1 03/31/2014 SWANSONSERGIO Miles S MUSIC PUBLISHER Ot 585.3 03/31/2014 SWANSONSERGIO S MUSIC PUBLISHER Ot 719.45 03/31/2014 SWANSONSERGIO S MUSIC PUBLISHER Ot 724.1 03/31/2014 SWANSONSERGIO S MUSIC PUBLISHER Ot 733.90 03/31/2014 SWANSONSERGIO Miles S MUSIC PUBLISHER Ot V15.3 03/31/2014 SWANSONSERGIO S MUSIC PUBLISHER Ot V58.69 03/31/2014 SWANSONSERGIO S MUSIC PUBLISHER Ot V86.0 03/31/2014 SWANSONSERGIO S MUSIC PUBLISHER Ot 174.9 03/31/2014 KIKI SERGIO S MUSIC PUBLISHER Ot 574.20 03/31/2014 KIKI SERGIO S MUSIC PUBLISHER Ot 724.1 03/31/2014 KIKI SERGIO S MUSIC PUBLISHER Ot 724.2 03/31/2014 SWANSON, SERGIO S MUSIC PUBLISHER Ot 724.1 03/31/2014 KIKI SERGIO S MUSIC PUBLISHER Ot 724.2 03/31/2014 SWANSON, SERGIO S MUSIC PUBLISHER Ot 174.9 03/31/2014 SERGIO SWANSON MUSIC PUBLISHER Ot 193 03/31/2014 SERGIO SWANSON MUSIC PUBLISHER Ot 196.3 03/31/2014 SERGIO SWANSON MUSIC PUBLISHER Ot 457.1 03/31/2014 SERGIO SWANSON MUSIC PUBLISHER Ot 585.3 03/31/2014 SERGIO SWANSON MUSIC PUBLISHER Ot 719.45 03/31/2014 SERGIO SWANSON MUSIC PUBLISHER Ot 724.1 03/31/2014 SERGIO SWANSON MUSIC PUBLISHER Ot 733.90 03/31/2014 SERGIO SWANSON MUSIC PUBLISHER Ot V15.3 03/31/2014 SERGIO SWANSON MUSIC PUBLISHER Ot V58.69 03/31/2014 SERGIO SWANSON MUSIC PUBLISHER Ot V86.0 04/08/2014 SERGIO SWANSON MUSIC PUBLISHER Ot 174.9 04/08/2014 SERGIO SWANSON MUSIC PUBLISHER Ot 457.1 04/08/2014 SWANSONSERGIO Miles MUSIC PUBLISHER Ot V57.21 04/14/2014 SERGIO SWANSON MUSIC PUBLISHER Ot 174.9 04/14/2014 SERGIO SWANSON MUSIC PUBLISHER Ot 457.1 04/14/2014 SERGIO SWANSON MUSIC PUBLISHER Ot V57.21 04/19/2014 SERGIO SWANSON MUSIC PUBLISHER Ot 174.9 MALIGN NEOPL BREAST NOS 04/19/2014 SERGIO SWANSON MUSIC PUBLISHER Ot 457.1 OTHER LYMPHEDEMA 04/19/2014 SERGIO SWANSON MUSIC PUBLISHER Ot V57.21 ENCOUNTER FOR OCCUPATIONAL THERAPY 05/31/2014 Ot V10.3 05/31/2014 Ot V76.11 08/03/2014 Ot V76.12 08/03/2014 Ot 305.1 08/03/2014 Ot 786.2 08/03/2014 Ot 793.1 08/03/2014 Ot V76.12 08/03/2014 Ot 496 08/03/2014 Ot V46.2 08/03/2014 Ot V57.89 08/03/2014 Ot 611.72 08/03/2014 Ot 362.34 08/03/2014 Ot 433.30 08/03/2014 Ot 786.6 08/03/2014 Ot 793.89 08/03/2014 Ot V76.12 08/03/2014 Ot 611.72 08/03/2014 Ot 174.9 08/03/2014 Ot 611.72 08/03/2014 Ot V72.84 08/03/2014 Ot 174.9 08/03/2014 Ot V72.63 08/03/2014 Ot V72.81 08/03/2014 Ot V74.8 08/03/2014 Ot 174.9 08/03/2014 Ot 240.9 08/03/2014 Ot 174.9 08/03/2014 Ot 241.0 08/03/2014 Ot 174.9 08/03/2014 Ot 196.3 08/03/2014 Ot 241.0 08/03/2014 Ot 457.1 08/03/2014 Ot V15.3 08/03/2014 Ot V58.69 08/03/2014 Ot V86.0 08/03/2014 Ot 733.90 08/03/2014 Ot V49.81 08/03/2014 Ot V82.81 08/03/2014 Ot 241.1 08/03/2014 Ot 780.79 08/03/2014 Ot V72.83 08/03/2014 Ot V74.8 08/03/2014 LEXY, BOBAN N Ot 174.3 08/03/2014 LEXY, BOBAN N Ot 196.3 08/03/2014 LUX CONNOLLY, EDVIN Cortez Ot 782.3 08/03/2014 LUX CONNOLLY, EDVIN Cortez Ot 786.05 08/03/2014 LEXY, BOBAN N Ot 174.9 08/03/2014 LEXY, BOBAN N Ot V15.3 08/03/2014 LEXY, BOBAN N Ot V45.89 08/03/2014 LEXY, BOBAN N Ot 174.9 08/03/2014 LEXY, BOBAN N Ot 193 08/03/2014 SERGIO SWANSON MUSIC PUBLISHER Ot 174.9 08/03/2014 SERGIO SWANSON MUSIC PUBLISHER Ot 193 08/03/2014 LEXY, BOBAN N Ot V10.3 08/03/2014 LUX CONNOLLY, EDVIN Cortez Ot V72.84 08/03/2014 LEXY, BOBAN N Ot 193 08/03/2014 LEXY, BOBAN N Ot 174.9 08/03/2014 LEXY, BOBAN N Ot 193 08/03/2014 LEXY, BOBAN N Ot 196.3 08/03/2014 MARÍA ELENA PUGH N Ot 457.1 08/03/2014 MARÍA ELENA PUGH N Ot 585.3 08/03/2014 MARÍA ELENA PUGH N Ot V15.3 08/03/2014 MARÍA ELENA PUGH N Ot V58.69 08/03/2014 MARÍA ELENA PUGH N Ot V86.0 08/03/2014 SWANSONSERGIO Miles MUSIC PUBLISHER Ot 174.9 08/03/2014 SWANSONSERGIO Miles S MUSIC PUBLISHER Ot 193 08/03/2014 SWANSONSERGIO Miles S MUSIC PUBLISHER Ot 196.3 08/03/2014 SWANSONSERGIO Miles MUSIC PUBLISHER Ot 457.1 08/03/2014 SWANSONSERGIO Miles S MUSIC PUBLISHER Ot 496 08/03/2014 SWANSONSERGIO Miles S MUSIC PUBLISHER Ot 585.3 08/03/2014 SWANSONSERGIO Miles S MUSIC PUBLISHER Ot 686.9 08/03/2014 SWANSONSERGIO Miles S MUSIC PUBLISHER Ot 733.90 08/03/2014 SWANSONSERGIO Miles S MUSIC PUBLISHER Ot 883.0 08/03/2014 SWANSONSERGIO Miles S MUSIC PUBLISHER Ot E000.8 08/03/2014 SWANSONSERGIO Miles S MUSIC PUBLISHER Ot E906.8 08/03/2014 SWANSONSERGIO Miles S MUSIC PUBLISHER Ot V15.3 08/03/2014 SWANSONSERGIO Miles S MUSIC PUBLISHER Ot V58.69 08/03/2014 SWANSONSERGIO Miles S MUSIC PUBLISHER Ot V86.0 08/03/2014 SWANSONSERGIO Miles S MUSIC PUBLISHER Ot 174.9 08/03/2014 SWANSONSERGIO Miles S MUSIC PUBLISHER Ot 193 08/03/2014 SWANSONSERGIO Miles S MUSIC PUBLISHER Ot 196.3 08/03/2014 SWANSONSERGIO Miles S MUSIC PUBLISHER Ot 457.1 08/03/2014 SWANSONSERGIO Miles S MUSIC PUBLISHER Ot 585.3 08/03/2014 SWANSONSERGIO Miles S MUSIC PUBLISHER Ot V15.3 08/03/2014 SWANSONSERGIO Miles S MUSIC PUBLISHER Ot V58.69 08/03/2014 SWANSONSERGIO Miles S MUSIC PUBLISHER Ot V86.0 08/03/2014 SWANSONSERGIO S MUSIC PUBLISHER Ot 174.9 08/03/2014 KIKISERGIO S MUSIC PUBLISHER Ot 733.90 08/03/2014 SERGIO SWANSON MUSIC PUBLISHER Ot V07.59 08/03/2014 SERGIO SWANSON S MUSIC PUBLISHER Ot 174.9 08/03/2014 SERGIO SWANSON S MUSIC PUBLISHER Ot 733.90 08/03/2014 SERGIO SWANSON MUSIC PUBLISHER Ot V07.59 08/03/2014 LEXYMARÍA ELENA UGALDE N Ot 174.9 08/03/2014 LEXY, JOSEMANUELAN N Ot 193 08/03/2014 LEXY, BOBAN N Ot 196.3 08/03/2014 LEXY, BOBAN N Ot 457.1 08/03/2014 LEXY, JOSEMANUELAN N Ot 496 08/03/2014 LEXY, BOBAN N Ot 585.3 08/03/2014 LEXY, JOSEMANUELAN N Ot 733.90 08/03/2014 LEXY, MARÍA ELENA N Ot V10.3 08/03/2014 LEXY, MARÍA ELENA N Ot V58.69 08/03/2014 LEXYMARÍA ELENA UGALDE N Ot V86.0 08/03/2014 SERGIO SWANSON MUSIC PUBLISHER Ot 174.9 08/03/2014 SERGIO SWANSON MUSIC PUBLISHER Ot 193 08/03/2014 SERGIO SWANSON S MUSIC PUBLISHER Ot 196.3 08/03/2014 SERGIO SWANSON S MUSIC PUBLISHER Ot 457.1 08/03/2014 SERGIO SWANSON S MUSIC PUBLISHER Ot 585.3 08/03/2014 SERGIO SWANSON S MUSIC PUBLISHER Ot 719.45 08/03/2014 SERGIO SWANSON S MUSIC PUBLISHER Ot 724.1 08/03/2014 SERGIO SWANSON S MUSIC PUBLISHER Ot 733.90 08/03/2014 SERGIO SWANSON S MUSIC PUBLISHER Ot V15.3 08/03/2014 SERGIO SWANSON S MUSIC PUBLISHER Ot V58.69 08/03/2014 SERGIO SWANSON S MUSIC PUBLISHER Ot V86.0 08/03/2014 SERGIO SWANSON S MUSIC PUBLISHER Ot 174.9 08/03/2014 SWANSONSERGIO Miles S MUSIC PUBLISHER Ot 574.20 08/03/2014 SWANSONSERGIO Miles S MUSIC PUBLISHER Ot 724.1 08/03/2014 SWANSONSERGIO S MUSIC PUBLISHER Ot 724.2 08/03/2014 SWANSONSERGIO S MUSIC PUBLISHER Ot 724.1 08/03/2014 SERGIO SWANSON MUSIC PUBLISHER Ot 724.2 08/03/2014 SERGIO SWANSON MUSIC PUBLISHER Ot 174.9 08/03/2014 SERGIO SWANSON MUSIC PUBLISHER Ot 193 08/03/2014 SERGIO SWANSON MUSIC PUBLISHER Ot 196.3 08/03/2014 SERGIO SWANSON MUSIC PUBLISHER Ot 457.1 08/03/2014 SERGIO SWANSON MUSIC PUBLISHER Ot 585.3 08/03/2014 SERGIO SWANSON MUSIC PUBLISHER Ot 719.45 08/03/2014 SERGIO SWANSON MUSIC PUBLISHER Ot 724.1 08/03/2014 SERGIO SWANSON MUSIC PUBLISHER Ot 733.90 08/03/2014 SERGIO SWANSON MUSIC PUBLISHER Ot V15.3 08/03/2014 SERGIO SWANSON MUSIC PUBLISHER Ot V58.69 08/03/2014 SERGIO SWANSON MUSIC PUBLISHER Ot V86.0 08/03/2014 Ot V10.3 08/03/2014 Ot V76.11 08/10/2014 LEXYMARÍA ELENA N Ot 174.9 08/10/2014 MARÍA ELENA PUGH N Ot 457.1 08/10/2014 MARÍA ELENA PUGH N Ot V57.21 08/17/2014 MARÍA ELENA PUGH N Ot 174.9 MALIGN NEOPL BREAST NOS 08/17/2014 MARÍA ELENA PUGH N Ot 193 MALIGN NEOPL THYROID 08/17/2014 MARÍA ELENA PUGH N Ot 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 08/17/2014 MARÍA ELENA PUGH N Ot 457.1 OTHER LYMPHEDEMA 08/17/2014 MARÍA ELENA PUGH N Ot 496 CHR AIRWAY OBSTRUCT NEC 08/17/2014 MARÍA ELENA PUGH N Ot 585.3 CHRONIC KIDNEY DISEASE, STAGE III (MODER 08/17/2014 MARÍA ELENA PUGH N Ot 733.90 BONE CARTILAGE DIS NOS 08/17/2014 MARÍA ELENA PUGH N Ot V10.3 HX OF BREAST MALIGNANCY 08/17/2014 MARÍA ELENA PUGH N Ot V58.69 OTH MED,LT,CURRENT USE 08/17/2014 MARÍA ELENA PUGH N Ot V86.0 ESTROGEN RECEPTOR POSITIVE STATUS [ER+] 09/05/2014 SWANSON HILAH S MUSIC PUBLISHER Ot 174.9 09/05/2014 KIKI SERGIO Miles MUSIC PUBLISHER Ot 193 09/05/2014 KIKI SERGIO Miles MUSIC PUBLISHER Ot 196.3 09/05/2014 KIKI SERGIO Miles MUSIC PUBLISHER Ot 457.1 09/05/2014 KIKI SERGIO S MUSIC PUBLISHER Ot 496 09/05/2014 KIKI SERGIO Miles MUSIC PUBLISHER Ot 585.3 09/05/2014 KIKI SERGIO S MUSIC PUBLISHER Ot 733.90 09/05/2014 KIKI SERGIO S MUSIC PUBLISHER Ot V58.69 09/05/2014 KIKI SERGIO Miles MUSIC PUBLISHER Ot V86.0 09/06/2014 MARÍA ELENA PUGH N Ot 174.9 MALIGN NEOPL BREAST NOS 09/06/2014 LEXYMARÍA ELENA N Ot 457.1 OTHER LYMPHEDEMA 09/06/2014 LEXYMARÍA ELENA N Ot V57.21 ENCOUNTER FOR OCCUPATIONAL THERAPY 09/22/2014 KIKI SERGIO Miles MUSIC PUBLISHER Ot 174.9 09/22/2014 SERGIO SWANSON S MUSIC PUBLISHER Ot 193 09/22/2014 KIKI SERGIO Miles MUSIC PUBLISHER Ot 196.3 09/22/2014 KIKI SERGIO Miles MUSIC PUBLISHER Ot 457.1 09/22/2014 KIKI SERGIO Jd MUSIC PUBLISHER Ot 496 09/22/2014 KIKI SERGIO Miles MUSIC PUBLISHER Ot 585.3 09/22/2014 KIKI SERGIO Miles MUSIC PUBLISHER Ot 733.90 09/22/2014 KIKI SERGIO S MUSIC PUBLISHER Ot V58.69 09/22/2014 SERGIO SWANSON MUSIC PUBLISHER Ot V86.0 11/14/2014 DANNIE BARBER DO Ot 708.9 URTICARIA NOS 11/14/2014 DANNIE BAREBR DO Ot 782.1 NONSPECIF SKIN ERUPT NEC 11/14/2014 Ot V10.3 11/14/2014 Ot V76.11 11/14/2014 SERGIO SWANSON MUSIC PUBLISHER Ot 174.9 11/14/2014 SERGIO SWANSON S MUSIC PUBLISHER Ot 193 11/14/2014 SERGIO SWANSON S MUSIC PUBLISHER Ot 196.3 11/14/2014 SERGIO SWANSON MUSIC PUBLISHER Ot 457.1 11/14/2014 SERGIO SWANSON S MUSIC PUBLISHER Ot 496 11/14/2014 SWANSONSERGIO Miles MUSIC PUBLISHER Ot 585.3 11/14/2014 SWANSONSEGRIO Miles S MUSIC PUBLISHER Ot 733.90 11/14/2014 SWANSONSERGIO S MUSIC PUBLISHER Ot V58.69 11/14/2014 SWANSONSERGIO Miles MUSIC PUBLISHER Ot V86.0 11/14/2014 LEXY, BOBAN N Ot 174.9 11/14/2014 LEXY, BOBAN N Ot 193 11/14/2014 LEXY, BOBAN N Ot 196.3 11/14/2014 LEXY, BOBAN N Ot 457.1 11/14/2014 LEXY, BOBAN N Ot 496 11/14/2014 LEXY, BOBAN N Ot 585.3 11/14/2014 LEXY, BOBAN N Ot 733.90 11/14/2014 LEXY, BOBAN N Ot V10.3 11/14/2014 LEXY, BOBAN N Ot V58.69 11/14/2014 LEXY, BOBAN N Ot V86.0 11/17/2014 LEXY, BOBAN N Ot 174.9 11/17/2014 LEXY, BOBAN N Ot 193 11/17/2014 LEXY, BOBAN N Ot 196.3 11/17/2014 LEXY, BOBAN N Ot 457.1 11/17/2014 LEXY, BOBAN N Ot 496 11/17/2014 LEXY, BOBAN N Ot 585.3 11/17/2014 LEXY, BOBAN N Ot 733.90 11/17/2014 LEXY, BOBAN N Ot V10.3 11/17/2014 LEXY, BOBAN N Ot V58.69 11/17/2014 LEXY, BOBAN N Ot V86.0 11/17/2014 LEXY, BOBAN N Ot 174.9 11/17/2014 LEXY, BOBAN N Ot 193 11/17/2014 LEXY, BOBAN N Ot 196.3 11/17/2014 LEXY, BOBAN N Ot 457.1 11/17/2014 LEXY, BOBAN N Ot 496 11/17/2014 LEXY, BOBAN N Ot 585.3 11/17/2014 LEXY, BOBAN N Ot 733.90 11/17/2014 LEXY, BOBAN N Ot V10.3 11/17/2014 LEXY, BOBAN N Ot V58.69 11/17/2014 LEXY, BOBAN N Ot V86.0 11/17/2014 Ot V10.3 11/17/2014 Ot V76.11 11/17/2014 SWANSONSERGIO S MUSIC PUBLISHER Ot 174.9 11/17/2014 SWANSON, SERGIO S MUSIC PUBLISHER Ot 193 11/17/2014 SWANSON, SERGIO S MUSIC PUBLISHER Ot 196.3 11/17/2014 SWANSON, SERGIO S MUSIC PUBLISHER Ot 457.1 11/17/2014 SWANSON, SERGIO S MUSIC PUBLISHER Ot 496 11/17/2014 SWANSON, SERGIO S MUSIC PUBLISHER Ot 585.3 11/17/2014 SWANSON, SERGIO S MUSIC PUBLISHER Ot 733.90 11/17/2014 SWANSON, SERGIO S MUSIC PUBLISHER Ot V58.69 11/17/2014 SWANSON, SERGIO S MUSIC PUBLISHER Ot V86.0 11/17/2014 SWANSON, SERGIO S MUSIC PUBLISHER Ot 174.9 11/17/2014 LEXY, BOBAN N Ot 174.9 11/17/2014 LEXY, BOBAN N Ot 193 11/17/2014 LEXY, BOBAN N Ot 196.3 11/17/2014 LEXY, BOBAN N Ot 457.1 11/17/2014 LEXY, BOBAN N Ot 496 11/17/2014 LEXY, BOBAN N Ot 585.3 11/17/2014 LEXY, BOBAN N Ot 733.90 11/17/2014 LEXY, BOBAN N Ot V10.3 11/17/2014 LEXY, BOBAN N Ot V58.69 11/17/2014 LEXY, BOBAN N Ot V86.0 11/21/2014 Ot 496 11/21/2014 Ot V46.2 11/21/2014 Ot V57.89 11/21/2014 LEXY, BOBAN N Ot 174.9 11/21/2014 LEXY, BOBAN N Ot 193 11/21/2014 LEXY, BOBAN N Ot 196.3 11/21/2014 LEXY, BOBAN N Ot 457.1 11/21/2014 LEXY, BOBAN N Ot 496 11/21/2014 LEXY, BOBAN N Ot 585.3 11/21/2014 LEXY, BOBAN N Ot 733.90 11/21/2014 MARÍA ELENA PUGH N Ot V10.3 11/21/2014 LEXYMARÍA ELENA UGALDE N Ot V58.69 11/21/2014 MARÍA ELENA PUGH N Ot V86.0 11/22/2014 LEXYMARÍA ELENA UGALDE N Ot 174.9 11/22/2014 LEXYMARÍA ELENA UGALDE N Ot 193 11/22/2014 LEXYMARÍA ELENA UGALDE N Ot 196.3 11/22/2014 LEXYMARÍA ELENA UGALDE N Ot 457.1 11/22/2014 LEXYMARÍA ELENA UGALDE N Ot 496 11/22/2014 LEXYMARÍA ELENA UGALDE N Ot 585.3 11/22/2014 MARÍA ELENA PUGH N Ot 733.90 11/22/2014 MARÍA ELENA PUGH N Ot V10.3 11/22/2014 MARÍA ELENA PUGH N Ot V58.69 11/22/2014 MARÍA ELENA PUGH N Ot V86.0 11/23/2014 SERGIO SWANSON MUSIC PUBLISHER Ot 174.9 11/23/2014 SERGIO SWANSON MUSIC PUBLISHER Ot 174.9 12/07/2014 MARÍA ELENA PUGH N Ot 174.9 MALIGN NEOPL BREAST NOS 12/07/2014 MARÍA ELENA PUGH N Ot 193 MALIGN NEOPL THYROID 12/07/2014 MARÍA ELENA PUGH N Ot 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 12/07/2014 MARÍA ELENA PUGH N Ot 457.1 OTHER LYMPHEDEMA 12/07/2014 MARÍA ELENA PUGH N Ot 496 CHR AIRWAY OBSTRUCT NEC 12/07/2014 MARÍA ELENA PUGH N Ot 585.3 CHRONIC KIDNEY DISEASE, STAGE III (MODER 12/07/2014 MARÍA ELENA PUGH N Ot 733.90 BONE CARTILAGE DIS NOS 12/07/2014 MARÍA ELENA PUGH N Ot V10.3 HX OF BREAST MALIGNANCY 12/07/2014 MARÍA ELENA PUGH N Ot V58.69 OTH MED,LT,CURRENT USE 12/07/2014 MARÍA ELENA PUGH N Ot V86.0 ESTROGEN RECEPTOR POSITIVE STATUS [ER+] 12/07/2014 SERGIO SWANSON MUSIC PUBLISHER Ot 174.9 12/07/2014 Ot V76.12 12/07/2014 Ot 305.1 12/07/2014 Ot 786.2 12/07/2014 Ot 793.1 12/07/2014 Ot V76.12 12/07/2014 Ot 496 12/07/2014 Ot V46.2 12/07/2014 Ot V57.89 12/07/2014 Ot 611.72 12/07/2014 Ot 362.34 12/07/2014 Ot 433.30 12/07/2014 Ot 786.6 12/07/2014 Ot 793.89 12/07/2014 Ot V76.12 12/07/2014 Ot 611.72 12/07/2014 Ot 174.9 12/07/2014 Ot 611.72 12/07/2014 Ot V72.84 12/07/2014 Ot 174.9 12/07/2014 Ot V72.63 12/07/2014 Ot V72.81 12/07/2014 Ot V74.8 12/07/2014 Ot 174.9 12/07/2014 Ot 240.9 12/07/2014 Ot 174.9 12/07/2014 Ot 241.0 12/07/2014 Ot 174.9 12/07/2014 Ot 196.3 12/07/2014 Ot 241.0 12/07/2014 Ot 457.1 12/07/2014 Ot V15.3 12/07/2014 Ot V58.69 12/07/2014 Ot V86.0 12/07/2014 Ot 733.90 12/07/2014 Ot V49.81 12/07/2014 Ot V82.81 12/07/2014 Ot 241.1 12/07/2014 Ot 780.79 12/07/2014 Ot V72.83 12/07/2014 Ot V74.8 12/07/2014 LEXYMARÍA ELENA UGALDE N Ot 174.3 12/07/2014 LEXYMARÍA ELENA N Ot 196.3 12/07/2014 EDVIN WASSERMAN MD Ot 782.3 12/07/2014 EDVIN WASSERMAN MD Ot 786.05 12/07/2014 LEXYMARÍA ELENA N Ot 174.9 12/07/2014 LEXYMARÍA ELENA N Ot V15.3 12/07/2014 LEXYMARÍA ELENA N Ot V45.89 12/07/2014 LEXYMARÍA ELENA N Ot 174.9 12/07/2014 LEXYMARÍA ELENA N Ot 193 12/07/2014 SERGIO SWANSON Ot 174.9 12/07/2014 SERGIO SWANSON S MUSIC PUBLISHER Ot 193 12/07/2014 LEXYMARÍA ELENA UGALDE N Ot V10.3 12/07/2014 LUX CONNOLLY, EDVIN Cortez Ot V72.84 12/07/2014 LEXYMARÍA ELENA UGALDE N Ot 193 12/07/2014 LEXY, MARÍA ELENA N Ot 174.9 12/07/2014 LEXY, MARÍA ELENA N Ot 193 12/07/2014 LEXY, MARÍA ELENA N Ot 196.3 12/07/2014 LEXY, MARÍA ELENA N Ot 457.1 12/07/2014 LEXY, MARÍA ELENA N Ot 585.3 12/07/2014 LEXYMARÍA ELENA UGALDE N Ot V15.3 12/07/2014 LEXY, MARÍA ELENA N Ot V58.69 12/07/2014 LEXYMARÍA ELENA UGALDE N Ot V86.0 12/07/2014 SWANSONSERGIO Miles S MUSIC PUBLISHER Ot 174.9 12/07/2014 SWANSONSERGIO Miles S MUSIC PUBLISHER Ot 193 12/07/2014 SWANSONSERGIO Miles S MUSIC PUBLISHER Ot 196.3 12/07/2014 SWANSONSERGIO Miles S MUSIC PUBLISHER Ot 457.1 12/07/2014 SWANSONSERGIO Miles S MUSIC PUBLISHER Ot 496 12/07/2014 SWANSONSERGIO S MUSIC PUBLISHER Ot 585.3 12/07/2014 SWANSONSERGIO Miles S MUSIC PUBLISHER Ot 686.9 12/07/2014 SWANSONSERGIO Miles S MUSIC PUBLISHER Ot 733.90 12/07/2014 SWANSONSERGIO Miles S MUSIC PUBLISHER Ot 883.0 12/07/2014 SWANSONSERGIO Miles S MUSIC PUBLISHER Ot E000.8 12/07/2014 SWANSONSERGIO S MUSIC PUBLISHER Ot E906.8 12/07/2014 SWANSONSERGIO S MUSIC PUBLISHER Ot V15.3 12/07/2014 SWANSONSERGIO S MUSIC PUBLISHER Ot V58.69 12/07/2014 SWANSONSERGIO S MUSIC PUBLISHER Ot V86.0 12/07/2014 SWANSONSERGIO S MUSIC PUBLISHER Ot 174.9 12/07/2014 SWANSONSERGIO S MUSIC PUBLISHER Ot 193 12/07/2014 SWANSONSERGIO S MUSIC PUBLISHER Ot 196.3 12/07/2014 SWANSONSERGIO S MUSIC PUBLISHER Ot 457.1 12/07/2014 SWANSONSERGIO S MUSIC PUBLISHER Ot 585.3 12/07/2014 SWANSONSERGIO Miles S MUSIC PUBLISHER Ot V15.3 12/07/2014 SERGIO SWANSON S MUSIC PUBLISHER Ot V58.69 12/07/2014 SERGIO SWANSON S MUSIC PUBLISHER Ot V86.0 12/07/2014 SERGIO SWANSON S MUSIC PUBLISHER Ot 174.9 12/07/2014 SWANSONSERGIO Miles S MUSIC PUBLISHER Ot 733.90 12/07/2014 SERGIO SWANSON S MUSIC PUBLISHER Ot V07.59 12/07/2014 SWANSONSERGIO Miles S MUSIC PUBLISHER Ot 174.9 12/07/2014 SWANSONSERGIO Miles S MUSIC PUBLISHER Ot 733.90 12/07/2014 SERGIO SWANSON S MUSIC PUBLISHER Ot V07.59 12/07/2014 SERGIO SWANSON S MUSIC PUBLISHER Ot 174.9 12/07/2014 SERGIO SWANSON S MUSIC PUBLISHER Ot 193 12/07/2014 SERGIO SWANSON S MUSIC PUBLISHER Ot 196.3 12/07/2014 SERGIO SWANSON S MUSIC PUBLISHER Ot 457.1 12/07/2014 ELIZABETH SWANSON S MUSIC PUBLISHER Ot 585.3 12/07/2014 SERGIO SWANSON S MUSIC PUBLISHER Ot 719.45 12/07/2014 SERGIO SWANSON S MUSIC PUBLISHER Ot 724.1 12/07/2014 SERGIO SWANSON S MUSIC PUBLISHER Ot 733.90 12/07/2014 SERGIO SWANSON S MUSIC PUBLISHER Ot V15.3 12/07/2014 SERGIO SWANSON S MUSIC PUBLISHER Ot V58.69 12/07/2014 SERGIO SWANSON S MUSIC PUBLISHER Ot V86.0 12/07/2014 SWANSON, HIL S MUSIC PUBLISHER Ot 174.9 12/07/2014 SWANSONSERGIO Miles S MUSIC PUBLISHER Ot 574.20 12/07/2014 SWANSONSERGIO Miles S MUSIC PUBLISHER Ot 724.1 12/07/2014 SWANSONSERGIO Miles S MUSIC PUBLISHER Ot 724.2 12/07/2014 SWANSON, HIL S MUSIC PUBLISHER Ot 724.1 12/07/2014 SWANSONSERGIO Miles S MUSIC PUBLISHER Ot 724.2 12/07/2014 SWANSONELIZABETH S MUSIC PUBLISHER Ot 174.9 12/07/2014 SWANSONELIZABETH S MUSIC PUBLISHER Ot 193 12/07/2014 SWANSONSERGIO Miles MUSIC PUBLISHER Ot 196.3 12/07/2014 SWANSONSERGIO Miles MUSIC PUBLISHER Ot 457.1 12/07/2014 SERGIO SWANSON S MUSIC PUBLISHER Ot 585.3 12/07/2014 SERGIO SWANSON MUSIC PUBLISHER Ot 719.45 12/07/2014 SERGIO SWANSON S MUSIC PUBLISHER Ot 724.1 12/07/2014 SWANSONSERGIO Miles S MUSIC PUBLISHER Ot 733.90 12/07/2014 ESRGIO SWANSON S MUSIC PUBLISHER Ot V15.3 12/07/2014 SWANSONSERGIO Miles S MUSIC PUBLISHER Ot V58.69 12/07/2014 SWANSONSERGIO Miles S MUSIC PUBLISHER Ot V86.0 12/07/2014 Ot V10.3 12/07/2014 Ot V76.11 12/07/2014 SERGIO SWANSON S MUSIC PUBLISHER Ot 174.9 12/07/2014 SERGIO SWANSON S MUSIC PUBLISHER Ot 193 12/07/2014 SWANSONSERGIO Miles S MUSIC PUBLISHER Ot 196.3 12/07/2014 SERGIO SWANSON S MUSIC PUBLISHER Ot 457.1 12/07/2014 SERGIO SWANSON S MUSIC PUBLISHER Ot 496 12/07/2014 SWANSONSERGIO Miles S MUSIC PUBLISHER Ot 585.3 12/07/2014 SERGIO SWANSON S MUSIC PUBLISHER Ot 733.90 12/07/2014 SERGIO SWANSON MUSIC PUBLISHER Ot V58.69 12/07/2014 SWANSONSERGIO Miles MUSIC PUBLISHER Ot V86.0 12/07/2014 SWANSONSERGIO Miles S MUSIC PUBLISHER Ot 174.9 12/07/2014 LEXY, JOSEMANUELAN N Ot 174.9 12/07/2014 LEXY, BOBAN N Ot 193 12/07/2014 LEXY, BOBAN N Ot 196.3 12/07/2014 LEXY, BOBAN N Ot 457.1 12/07/2014 LEXY, BOBAN N Ot 496 12/07/2014 LEXY, BOBAN N Ot 585.3 12/07/2014 LEXY, BOBAN N Ot 733.90 12/07/2014 LEXY, BOBAN N Ot V10.3 12/07/2014 LEXY, BOBAN N Ot V58.69 12/07/2014 LEXY, BOBAN N Ot V86.0 12/07/2014 Ot V10.3 12/07/2014 Ot V76.11 12/07/2014 SWANSONSERGIO Miles MUSIC PUBLISHER Ot 174.9 12/07/2014 SWANSONSERGIO Miles MUSIC PUBLISHER Ot 193 12/07/2014 SWANSONSERGIO Miles S MUSIC PUBLISHER Ot 196.3 12/07/2014 SWANSONSERGIO Miles MUSIC PUBLISHER Ot 457.1 12/07/2014 SWANSONSERGIO Miles S MUSIC PUBLISHER Ot 496 12/07/2014 SWANSONSERGIO Miles S MUSIC PUBLISHER Ot 585.3 12/07/2014 SWANSONSERGIO Miles S MUSIC PUBLISHER Ot 733.90 12/07/2014 SWANSONSERGIO Miles S MUSIC PUBLISHER Ot V58.69 12/07/2014 SERGIO SWANSON S MUSIC PUBLISHER Ot V86.0 12/07/2014 SERGIO SWANSON MUSIC PUBLISHER Ot 174.9 12/07/2014 LEXY, JOSEMANUELAN N Ot 174.9 12/07/2014 LEXY, BOBAN N Ot 193 12/07/2014 LEXY, BOBAN N Ot 196.3 12/07/2014 LEXY, BOBAN N Ot 457.1 12/07/2014 LEXY, BOBAN N Ot 496 12/07/2014 LEXY, BOBAN N Ot 585.3 12/07/2014 LEXY, BOBAN N Ot 733.90 12/07/2014 LEXY, BOBAN N Ot V10.3 12/07/2014 LEXY, BOBAN N Ot V58.69 12/07/2014 LEXY, BOBAN N Ot V86.0 12/15/2014 SWANSONSERGIO Miles MUSIC PUBLISHER Ot 174.9 12/29/2014 DAVID DO, RONDA M Ot 278.00 12/29/2014 DAVID DO, RONDA M Ot 401.9 12/29/2014 DAVID DO, RONDA M Ot 491.20 01/06/2015 DAVID DO, RONDA M Ot 278.00 01/06/2015 DAVID DO, RONDA M Ot 401.9 01/06/2015 DAVID DO, RONDA M Ot 491.20 01/06/2015 DAVID DO, RONDA M Ot 278.00 01/06/2015 DAVID DO, RONDA M Ot 401.9 01/06/2015 DAVIDRONDA FIELDS DO Ot 491.20 02/15/2015 JOHNY VALADEZ DO Ot F17.211 NICOTINE DEPENDENCE, CIGARETTES, 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 02/15/2015 JOHNY VALADEZ DO Dana Ot R10.12 LEFT UPPER QUADRANT PAIN 02/15/2015 Ot 733.90 02/15/2015 Ot V49.81 02/15/2015 Ot V82.81 02/15/2015 EDVIN WASSERMAN MD Ot V72.84 02/15/2015 LEXY, BOBAN N Ot 193 02/15/2015 LEXY, BOBAN N Ot 174.9 02/15/2015 LEXY, BOBAN N Ot 193 02/15/2015 LEXY, BOBAN N Ot 196.3 02/15/2015 LEXY, BOBAN N Ot 457.1 02/15/2015 LEXY, BOBAN N Ot 585.3 02/15/2015 LEXY, BOBAN N Ot V15.3 02/15/2015 LEXY, BOBAN N Ot V58.69 02/15/2015 LEXY, BOBAN N Ot V86.0 02/15/2015 SERGIO SWANSON S MUSIC PUBLISHER Ot 174.9 02/15/2015 SWANSONSERGIO Miles S MUSIC PUBLISHER Ot 193 02/15/2015 SWANSONELIZABETHAH S MUSIC PUBLISHER Ot 196.3 02/15/2015 SWANSONSERGIO Miles S MUSIC PUBLISHER Ot 457.1 02/15/2015 SWANSONSERGIO Miles S MUSIC PUBLISHER Ot 496 02/15/2015 SWANSONSERGIO Miles S MUSIC PUBLISHER Ot 585.3 02/15/2015 SWANSONSERGIO Miles S MUSIC PUBLISHER Ot 686.9 02/15/2015 SWANSON, HILAH S MUSIC PUBLISHER Ot 733.90 02/15/2015 SWANSON HILAH S MUSIC PUBLISHER Ot 883.0 02/15/2015 SWNASONELIZABETHAH S MUSIC PUBLISHER Ot E000.8 02/15/2015 SWANSON, HILAH S MUSIC PUBLISHER Ot E906.8 02/15/2015 SWANSONSERGIO Miles S MUSIC PUBLISHER Ot V15.3 02/15/2015 SWANSONELIZABETHAH S MUSIC PUBLISHER Ot V58.69 02/15/2015 SWANSONSERGIO S MUSIC PUBLISHER Ot V86.0 02/15/2015 SWANSONELIZABETHAH S MUSIC PUBLISHER Ot 174.9 02/15/2015 SERGIO SWANSON MUSIC PUBLISHER Ot 193 02/15/2015 SWANSONSERGIO Miles S MUSIC PUBLISHER Ot 196.3 02/15/2015 SERGIO SWANSON S MUSIC PUBLISHER Ot 457.1 02/15/2015 SERGIO SWANSON S MUSIC PUBLISHER Ot 585.3 02/15/2015 SERGIO SWANSON S MUSIC PUBLISHER Ot V15.3 02/15/2015 SWANSONSERGIO Miles S MUSIC PUBLISHER Ot V58.69 02/15/2015 SWANSONSERGIO Miles S MUSIC PUBLISHER Ot V86.0 02/15/2015 SWANSONSERGIO Miles S MUSIC PUBLISHER Ot 174.9 02/15/2015 SWANSONSERGIO Miles S MUSIC PUBLISHER Ot 733.90 02/15/2015 SERGIO SWANSON S MUSIC PUBLISHER Ot V07.59 02/15/2015 SERGIO SWANSON S MUSIC PUBLISHER Ot 174.9 02/15/2015 SWANSONSERGIO Milse S MUSIC PUBLISHER Ot 733.90 02/15/2015 SERGIO SWANSON S MUSIC PUBLISHER Ot V07.59 02/15/2015 SERGIO SWANSON S MUSIC PUBLISHER Ot 174.9 02/15/2015 SERGIO SWANSON S MUSIC PUBLISHER Ot 193 02/15/2015 SERGIO SWANSON S MUSIC PUBLISHER Ot 196.3 02/15/2015 SERGIO SWANSON S MUSIC PUBLISHER Ot 457.1 02/15/2015 SERGIO SWANSON S MUSIC PUBLISHER Ot 585.3 02/15/2015 SERGIO SWANSON S MUSIC PUBLISHER Ot 719.45 02/15/2015 SWANSONSERGIO Miles S MUSIC PUBLISHER Ot 724.1 02/15/2015 SWANSONSERGIO Miles S MUSIC PUBLISHER Ot 733.90 02/15/2015 SWANSONSERGIO Miles S MUSIC PUBLISHER Ot V15.3 02/15/2015 SWANSONSERGIO Miles S MUSIC PUBLISHER Ot V58.69 02/15/2015 SWANSONSERGIO Miles S MUSIC PUBLISHER Ot V86.0 02/15/2015 SWANSONSERGIO Miles S MUSIC PUBLISHER Ot 174.9 02/15/2015 SWANSONSERGIO Miles S MUSIC PUBLISHER Ot 574.20 02/15/2015 SWANSONSERGIO Miles S MUSIC PUBLISHER Ot 724.1 02/15/2015 SWANSONSERGIO S MUSIC PUBLISHER Ot 724.2 02/15/2015 SWANSONSERGIO S MUSIC PUBLISHER Ot 724.1 02/15/2015 SERGIO SWANSON MUSIC PUBLISHER Ot 724.2 02/15/2015 SERGIO SWANSON S MUSIC PUBLISHER Ot 174.9 02/15/2015 SERGIO SWANSON S MUSIC PUBLISHER Ot 193 02/15/2015 SWANSONSERGIO Miles S MUSIC PUBLISHER Ot 196.3 02/15/2015 SERIGO SWANSON S MUSIC PUBLISHER Ot 457.1 02/15/2015 SERGIO SWANSON S MUSIC PUBLISHER Ot 585.3 02/15/2015 SERGIO SWANSON S MUSIC PUBLISHER Ot 719.45 02/15/2015 SERGIO SWANSON S MUSIC PUBLISHER Ot 724.1 02/15/2015 SERGIO SWANSON S MUSIC PUBLISHER Ot 733.90 02/15/2015 SERGIO SWANSON S MUSIC PUBLISHER Ot V15.3 02/15/2015 SERGIO SWANSON S MUSIC PUBLISHER Ot V58.69 02/15/2015 SERGIO SWANSON S MUSIC PUBLISHER Ot V86.0 02/15/2015 Ot V10.3 02/15/2015 Ot V76.11 02/15/2015 SERGIO SWANSON S MUSIC PUBLISHER Ot 174.9 02/15/2015 SERGIO SWANSON S MUSIC PUBLISHER Ot 193 02/15/2015 SERGIO SWANSON S MUSIC PUBLISHER Ot 196.3 02/15/2015 SERGIO SWANSON S MUSIC PUBLISHER Ot 457.1 02/15/2015 SERGIO SWANSON S MUSIC PUBLISHER Ot 496 02/15/2015 SERGIO SWANSON S MUSIC PUBLISHER Ot 585.3 02/15/2015 SERGIO SWANSON S MUSIC PUBLISHER Ot 733.90 02/15/2015 SERGIO SWANSON S MUSIC PUBLISHER Ot V58.69 02/15/2015 SERGIO SWANSON S MUSIC PUBLISHER Ot V86.0 02/15/2015 SWANSONSERGIO Miles S MUSIC PUBLISHER Ot 174.9 02/15/2015 RONDA HERNANDEZ DO Ot 278.00 02/15/2015 RONDA HERNANDEZ DO Ot 401.9 02/15/2015 RONDA HERNANDEZ DO Ot 491.20 02/15/2015 MARÍA ELENA PUGH N Ot 174.9 02/15/2015 MARÍA ELENA PUGH N Ot 193 02/15/2015 MARÍA ELENA PUGH N Ot 196.3 02/15/2015 MARÍA ELENA PUGH N Ot 457.1 02/15/2015 LEXY, JOSEMANUELAN N Ot 496 02/15/2015 LEXY, MARÍA ELENA N Ot 585.3 02/15/2015 LEXY, MARÍA ELENA N Ot 733.90 02/15/2015 LEXY, MARÍA ELENA N Ot V10.3 02/15/2015 LEXY, MARÍA ELENA N Ot V58.69 02/15/2015 LEXY, MARÍA ELENA N Ot V86.0 04/12/2015 SWANSON, HILAH S MUSIC PUBLISHER Ot I89.0 04/25/2015 SWANSON, HILAH S MUSIC PUBLISHER Ot I89.0 05/10/2015 SWANSON, HILAH S MUSIC PUBLISHER Ot I89.0 LYMPHEDEMA, NOT ELSEWHERE CLASSIFIED 05/23/2015 SWANSON, HILAH S MUSIC PUBLISHER Ot I89.0 05/23/2015 SWANSON, HILAH S MUSIC PUBLISHER Ot Z08 05/23/2015 SWANSON, HILAH S MUSIC PUBLISHER Ot Z85.3 05/23/2015 SWANSON, HILAH S MUSIC PUBLISHER Ot Z85.850 05/24/2015 LEXY, MARÍA ELENA N Ot 174.9 05/24/2015 LEXY, MARÍA ELENA N Ot 193 05/24/2015 LEXY, BOBBERTIN N Ot 196.3 05/24/2015 LEXY, MARÍA ELENA N Ot 457.1 05/24/2015 LEXY, MARÍA ELENA N Ot 496 05/24/2015 LEXY, MARÍA ELENA N Ot 585.3 05/24/2015 LEXY, MARÍA ELENA N Ot 733.90 05/24/2015 LEXYMARÍA ELENA UGALDE N Ot V10.3 05/24/2015 LEXY, MARÍA ELENA N Ot V58.69 05/24/2015 LEXY, MARÍA ELENA N Ot V86.0 06/13/2015 SWANSON, HILAH S MUSIC PUBLISHER Ot I89.0 06/13/2015 SWANSON, HILAH S MUSIC PUBLISHER Ot Z08 06/13/2015 SWANSON, HILAH S MUSIC PUBLISHER Ot Z85.3 06/13/2015 SWANSON, HILAH S MUSIC PUBLISHER Ot Z85.850 06/21/2015 SWANSON, HILAH S MUSIC PUBLISHER Ot I89.0 06/21/2015 SWANSON, HILAH S MUSIC PUBLISHER Ot Z08 06/21/2015 SWANSON, HILAH S MUSIC PUBLISHER Ot Z85.3 06/21/2015 SERGIO SWANSON MUSIC PUBLISHER Ot Z85.850 07/31/2015 MARÍA ELENA PUGH Ot 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 07/31/2015 MARÍA ELENA PUGH N Ot C73 MALIGNANT NEOPLASM OF THYROID GLAND 07/31/2015 MARÍA ELENA PUGH N Ot I89.0 LYMPHEDEMA, NOT ELSEWHERE CLASSIFIED 07/31/2015 MARÍA ELENA PUGH Ot J44.9 CHRONIC OBSTRUCTIVE PULMONARY DISEASE, U 07/31/2015 MARÍA ELENA PUGH N Ot M85.80 OTH DISRD OF BONE DENSITY AND STRUCTURE, 07/31/2015 MARÍA ELENA PU[facility] N Ot R21 RASH AND OTHER NONSPECIFIC SKIN ERUPTION 07/31/2015 MARÍA ELENA PU[facility] N Ot Z17.0 ESTROGEN RECEPTOR POSITIVE STATUS [ER+] 07/31/2015 MARÍA ELENA PU[facility] N Ot Z79.811 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 LIAISON 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 (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) USE OF AROMATASE INH 07/31/2015 MARÍA ELENA PU[facility] N Ot Z79.899 OTHER ABORIGINAL LIAISON OFFICER (CURRENT) DRUG THERAPY 08/20/2015 MARÍA ELENA PU[facility] N Ot 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 08/20/2015 MARÍA ELENA PU[facility] N Ot C73 MALIGNANT NEOPLASM OF THYROID GLAND 08/20/2015 MARÍA ELENA PU[facility] N Ot I89.0 LYMPHEDEMA, NOT ELSEWHERE CLASSIFIED 08/20/2015 MARÍA ELENA PU[facility] Ot J44.9 CHRONIC OBSTRUCTIVE PULMONARY DISEASE, U 08/20/2015 MARÍA ELENA PU[facility] N Ot M85.80 OTH DISRD OF BONE DENSITY AND STRUCTURE, 08/20/2015 MARÍA ELENA [facility] N Ot R21 RASH AND OTHER NONSPECIFIC SKIN ERUPTION 08/20/2015 MARÍA ELENA [facility] N Ot Z17.0 ESTROGEN RECEPTOR POSITIVE STATUS [ER+] 08/20/2015 MARÍA ELENA PU[facility] N Ot Z79.811 ABORIGINAL LIAISON OFFICER (CURRENT) USE OF AROMATASE INH 08/20/2015 MARÍA ELENA [facility] N Ot Z79.899 OTHER ABORIGINAL LIAISON OFFICER (CURRENT) DRUG THERAPY 08/21/2015 MARÍA ELENA PU[facility] N Ot 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 08/21/2015 LEXYMARÍA ELENA UGALDE N Ot C73 MALIGNANT NEOPLASM OF THYROID GLAND 08/21/2015 MARÍA ELENA [facility] N Ot I89.0 LYMPHEDEMA, NOT ELSEWHERE CLASSIFIED 08/21/2015 MARÍA ELENA PU[facility] Ot J44.9 CHRONIC OBSTRUCTIVE PULMONARY DISEASE, U 08/21/2015 MARÍA ELENA PU[facility] Ot M85.80 OTH DISRD OF BONE DENSITY AND STRUCTURE, 08/21/2015 MARÍA ELENA PU[facility] Ot R21 RASH AND OTHER NONSPECIFIC SKIN ERUPTION 08/21/2015 MARÍA ELENA [facility] Ot Z17.0 ESTROGEN RECEPTOR POSITIVE STATUS [ER+] 08/21/2015 MARÍA ELENA PU[facility] Ot Z79.811 [facility] (CURRENT) USE OF AROMATASE INH 08/21/2015 MARÍA ELENA PU[facility] Ingrid Ot Z79.899 OTHER [facility] (CURRENT) DRUG THERAPY 11/09/2015 SERGIO SWANSON Ot I89.0 LYMPHEDEMA, NOT ELSEWHERE CLASSIFIED 11/09/2015 SERGIO SWANSON MUSIC PUBLISHER Ot Z85.3 PERSONAL HISTORY OF MALIGNANT NEOPLASM O 11/23/2015 MARÍA ELENA PU[facility] Ot 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 11/23/2015 MARÍA ELENA PU[facility] Ingrid Ot C73 MALIGNANT NEOPLASM OF THYROID GLAND 11/23/2015 MARÍA ELENA PU[facility] Ingrid Ot I89.0 LYMPHEDEMA, NOT ELSEWHERE CLASSIFIED 11/23/2015 MARÍA ELENA PU[facility] Ot J44.9 CHRONIC OBSTRUCTIVE PULMONARY DISEASE, U 11/23/2015 MARÍA ELENA PU[facility] Ot M85.80 OTH DISRD OF BONE DENSITY AND STRUCTURE, 11/23/2015 MARÍA ELENA PU[facility] Ot R21 RASH AND OTHER NONSPECIFIC SKIN ERUPTION 11/23/2015 MARÍA ELENA PU[facility] Ot Z17.0 ESTROGEN RECEPTOR POSITIVE STATUS [ER+] 11/23/2015 MARÍA ELENA PU[facility] Ot Z79.811 ABORIGINAL LIAISON OFFICER (CURRENT) USE OF AROMATASE INH 11/23/2015 MARÍA ELENA PU[facility] Ingrid Ot Z79.899 OTHER [facility] (CURRENT) DRUG THERAPY 11/23/2015 Ot V76.12 OTH SCREEN MAMMO-MALIGN NEOPLASM OF STACIA 11/23/2015 Ot 496 CHR AIRWAY OBSTRUCT NEC 11/23/2015 Ot V46.2 SUPPLEMENTAL OXYGEN 11/23/2015 Ot V57.89 REHABILITATION PROC NEC 11/23/2015 Ot 611.72 LUMP OR MASS IN BREAST 11/23/2015 Ot 362.34 TRANSIENT ARTERIAL OCCLU 11/23/2015 Ot 433.30 MULT BILTRAL ARTERY OCCLUSION WO CEREBRA 11/23/2015 Ot 786.6 CHEST SWELLING/MASS/LUMP 11/23/2015 Ot 793.89 OTH (ABN) FINDINGS ON RADIOLOGICAL EXAMI 11/23/2015 Ot V76.12 OTH SCREEN MAMMO-MALIGN NEOPLASM OF STACIA 11/23/2015 Ot 611.72 LUMP OR MASS IN BREAST 11/23/2015 Ot 174.9 MALIGN NEOPL BREAST NOS 11/23/2015 Ot 611.72 LUMP OR MASS IN BREAST 11/23/2015 Ot V72.84 EXAM PRE-OPERATIVE NOS 11/23/2015 Ot 174.9 MALIGN NEOPL BREAST NOS 11/23/2015 Ot V72.63 PRE-PROCEDURAL LABORATORY EXAMINATION 11/23/2015 Ot V72.81 [id number] CARDIOVASCULAR 11/23/2015 Ot V74.8 SCREEN-BACTERIAL DIS NEC 11/23/2015 Ot 174.9 MALIGN NEOPL BREAST NOS 11/23/2015 Ot 240.9 GOITER NOS 11/23/2015 Ot 174.9 MALIGN NEOPL BREAST NOS 11/23/2015 Ot 241.0 NONTOX UNINODULAR GOITER 11/23/2015 Ot 174.9 MALIGN NEOPL BREAST NOS 11/23/2015 Ot 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 11/23/2015 Ot 241.0 NONTOX UNINODULAR GOITER 11/23/2015 Ot 457.1 OTHER LYMPHEDEMA 11/23/2015 Ot V15.3 HX OF IRRADIATION 11/23/2015 Ot V58.69 OTH MED,LT,CURRENT USE 11/23/2015 Ot V86.0 ESTROGEN RECEPTOR POSITIVE STATUS [ER+] 11/23/2015 Ot 733.90 BONE CARTILAGE DIS NOS 11/23/2015 Ot V49.81 ASYMPT POSTMENOPAUSAL STATUS (AGE-RELATE 11/23/2015 Ot V82.81 SCREENING FOR OSTEOPOROSIS 11/23/2015 Ot 241.1 NONTOX MULTINODUL GOITER 11/23/2015 Ot 780.79 OTH MALAISE FATIGUE 11/23/2015 Ot V72.83 EXAM PRE-OPERATIVE NEC 11/23/2015 Ot V74.8 SCREEN-BACTERIAL DIS NEC 11/23/2015 MARÍA ELENA PUGH Ot 174.3 MAL RADHA BREAST LOW-INNER 11/23/2015 MARÍA ELENA PUGH Ot 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 11/23/2015 LUX CONNOLLY, EDVIN Cortez Ot 782.3 EDEMA 11/23/2015 EDVIN WASSERMAN MD Ot 786.05 SHORTNESS OF BREATH 11/23/2015 MARÍA ELENA PUGH N Ot 174.9 MALIGN NEOPL BREAST NOS 11/23/2015 MARÍA ELENA PUGH N Ot V15.3 HX OF IRRADIATION 11/23/2015 MARÍA ELENA PUGH N Ot V45.89 POSTSURGICAL STATES NEC 11/23/2015 LEXY MARÍA ELENA N Ot 174.9 MALIGN NEOPL BREAST NOS 11/23/2015 LEXYMARÍA ELENA N Ot 193 MALIGN NEOPL THYROID 11/23/2015 SWANSONELIZABETHAH S MUSIC PUBLISHER Ot 174.9 MALIGN NEOPL BREAST NOS 11/23/2015 SWANSON HILAH S MUSIC PUBLISHER Ot 193 MALIGN NEOPL THYROID 11/23/2015 JOSEMANUEL PUGHBERTIN N Ot V10.3 HX OF BREAST MALIGNANCY 11/23/2015 LUX CONNOLLY, EDVIN Cortez Ot V72.84 EXAM PRE-OPERATIVE NOS 11/23/2015 LEXYMARÍA ELENA N Ot 193 MALIGN NEOPL THYROID 11/23/2015 LEXYMARÍA ELENA N Ot 174.9 MALIGN NEOPL BREAST NOS 11/23/2015 LEXYMARÍA ELENA N Ot 193 MALIGN NEOPL THYROID 11/23/2015 LEYXMARÍA ELENA N Ot 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 11/23/2015 LEXYMARÍA ELENA N Ot 457.1 OTHER LYMPHEDEMA 11/23/2015 MARÍA ELENA PGUH N Ot 585.3 CHRONIC KIDNEY DISEASE, STAGE III (MODER 11/23/2015 LEXYMARÍA ELENA N Ot V15.3 HX OF IRRADIATION 11/23/2015 LEXYMARÍA ELENA N Ot V58.69 OTH MED,LT,CURRENT USE 11/23/2015 LEXYMARÍA ELENA N Ot V86.0 ESTROGEN RECEPTOR POSITIVE STATUS [ER+] 11/23/2015 SWANSONELIZABETHAH S MUSIC PUBLISHER Ot 174.9 MALIGN NEOPL BREAST NOS 11/23/2015 SWANSONELIZABETHAH S MUSIC PUBLISHER Ot 193 MALIGN NEOPL THYROID 11/23/2015 SWANSON HILAH S MUSIC PUBLISHER Ot 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8 INJ NEC CAUSED BY ANIMAL 11/23/2015 SERGIO SWANSONP Ot V15.3 HX OF IRRADIATION 11/23/2015 SERGIO SWANSONP Ot V58.69 OTH MED,LT,CURRENT USE 11/23/2015 SERGIO SWANSONP Ot V86.0 ESTROGEN RECEPTOR POSITIVE STATUS [ER+] 11/23/2015 SERGIO SWANSON MUSIC PUBLISHER Ot 174.9 MALIGN NEOPL BREAST NOS 11/23/2015 SERGIO SWANSON MUSIC PUBLISHER Ot 193 MALIGN NEOPL THYROID 11/23/2015 SERGIO SWANSON MUSIC PUBLISHER Ot 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 11/23/2015 SERGIO SWANSON MUSIC PUBLISHER Ot 457.1 OTHER LYMPHEDEMA 11/23/2015 SERGIO SWANSON MUSIC PUBLISHER Ot 585.3 CHRONIC KIDNEY DISEASE, STAGE III ( MODER 11/23/2015 SERGIO SWANSONP Ot V15.3 HX OF IRRADIATION 11/23/2015 SERGIO SWANSONP Ot V58.69 OTH MED,LT,CURRENT USE 11/23/2015 SERGIO SWANSON MUSIC PUBLISHER Ot V86.0 ESTROGEN RECEPTOR POSITIVE STATUS [ER+] 11/23/2015 SERGIO SWANSON MUSIC PUBLISHER Ot 174.9 MALIGN NEOPL BREAST NOS 11/23/2015 SERGIO SWANSONP Ot 733.90 BONE CARTILAGE DIS NOS 11/23/2015 SERGIO SWANSONP Ot V07.59 USE OF OTH AGENTS AFF ESTROGEN RECEPTORS 11/23/2015 SERGIO SWANSON MUSIC PUBLISHER Ot 174.9 MALIGN NEOPL BREAST NOS 11/23/2015 SWANSON, HILAH S MUSIC PUBLISHER Ot 733.90 BONE CARTILAGE DIS NOS 11/23/2015 SERGIO SWANSON MUSIC PUBLISHER Ot V07.59 USE OF OTH AGENTS AFF ESTROGEN RECEPTORS 11/23/2015 SERGIO SWANSON MUSIC PUBLISHER Ot 174.9 MALIGN NEOPL BREAST NOS 11/23/2015 SERGIO SWANSON MUSIC PUBLISHER Ot 193 MALIGN NEOPL THYROID 11/23/2015 SERGIO SWANSON MUSIC PUBLISHER Ot 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 11/23/2015 SERGIO SWANSON MUSIC PUBLISHER Ot 457.1 OTHER LYMPHEDEMA 11/23/2015 SERGIO SWANSON MUSIC PUBLISHER Ot 585.3 CHRONIC KIDNEY DISEASE, STAGE III ( MODER 11/23/2015 SERGIO SWANSON MUSIC PUBLISHER Ot 719.45 JOINT PAIN-PELVIS 11/23/2015 SERGIO SWANSON MUSIC PUBLISHER Ot 724.1 PAIN IN THORACIC SPINE 11/23/2015 SERGIO SWANSON MUSIC PUBLISHER Ot 733.90 BONE CARTILAGE DIS NOS 11/23/2015 SERGIO SWANSON MUSIC PUBLISHER Ot V15.3 HX OF IRRADIATION 11/23/2015 SERGIO SWANSON MUSIC PUBLISHER Ot V58.69 OTH MED,LT,CURRENT USE 11/23/2015 SERGIO SWANSON MUSIC PUBLISHER Ot V86.0 ESTROGEN RECEPTOR POSITIVE STATUS [ER+] 11/23/2015 SERGIO SWANSON MUSIC PUBLISHER Ot 174.9 MALIGN NEOPL BREAST NOS 11/23/2015 SERGIO SWANSON MUSIC PUBLISHER Ot 574.20 CHOLELITHIASIS NOS 11/23/2015 SERGIO SWANSON MUSIC PUBLISHER Ot 724.1 PAIN IN THORACIC SPINE 11/23/2015 SERGIO SWANSON MUSIC PUBLISHER Ot 724.2 LUMBAGO 11/23/2015 SERGIO SWANSON MUSIC PUBLISHER Ot 724.1 PAIN IN THORACIC SPINE 11/23/2015 SERGIO SWANSON MUSIC PUBLISHER Ot 724.2 LUMBAGO 11/23/2015 SERGIO SWANSON MUSIC PUBLISHER Ot 174.9 MALIGN NEOPL BREAST NOS 11/23/2015 SERGIO SWANSON MUSIC PUBLISHER Ot 193 MALIGN NEOPL THYROID 11/23/2015 SERGIO SWANSON MUSIC PUBLISHER Ot 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 11/23/2015 SERGIO SWANSON MUSIC PUBLISHER Ot 457.1 OTHER LYMPHEDEMA 11/23/2015 SERGIO SWANSON MUSIC PUBLISHER Ot 585.3 CHRONIC KIDNEY DISEASE, STAGE III ( MODER 11/23/2015 SERGIO SWANSON MUSIC PUBLISHER Ot 719.45 JOINT PAIN-PELVIS 11/23/2015 SERGIO SWANSON MUSIC PUBLISHER Ot 724.1 PAIN IN THORACIC SPINE 11/23/2015 SERGIO SWANSON MUSIC PUBLISHER Ot 733.90 BONE CARTILAGE DIS NOS 11/23/2015 SERGIO SWANSON MUSIC PUBLISHER Ot V15.3 HX OF IRRADIATION 11/23/2015 SERGIO SWANSON MUSIC PUBLISHER Ot V58.69 OTH MED,LT,CURRENT USE 11/23/2015 SERGIO SWANSON MUSIC PUBLISHER Ot V86.0 ESTROGEN RECEPTOR POSITIVE STATUS [ER+] 11/23/2015 Ot V10.3 HX OF BREAST MALIGNANCY 11/23/2015 Ot V76.11 SCRN MAMMO-HIGH RISK PT, MALIGNANT NEOPL 11/23/2015 SERGIO SWANSON MUSIC PUBLISHER Ot 174.9 MALIGN NEOPL BREAST NOS 11/23/2015 SERGIO SWANSON S MUSIC PUBLISHER Ot 193 MALIGN NEOPL THYROID 11/23/2015 ELIZABETH SWANSONLOVE Jd MUSIC PUBLISHER Ot 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 11/23/2015 SERGIO SWANSON MUSIC PUBLISHER Ot 457.1 OTHER LYMPHEDEMA 11/23/2015 SERGIO SWANSON MUSIC PUBLISHER Ot 496 CHR AIRWAY OBSTRUCT NEC 11/23/2015 SERGIO SWANSON MUSIC PUBLISHER Ot 585.3 CHRONIC KIDNEY DISEASE, STAGE III ( MODER 11/23/2015 SERGIO SWANSON MUSIC PUBLISHER Ot 733.90 BONE CARTILAGE DIS NOS 11/23/2015 SERGIO SWANSON MUSIC PUBLISHER Ot V58.69 OTH MED,LT,CURRENT USE 11/23/2015 SERGIO SWANSON MUSIC PUBLISHER Ot V86.0 ESTROGEN RECEPTOR POSITIVE STATUS [ER+] 11/23/2015 SERGIO SWANSON S MUSIC PUBLISHER Ot 174.9 MALIGN NEOPL BREAST NOS 11/23/2015 RONDA HERNANDEZ DO Ot 278.00 OBESITY, NOS 11/23/2015 RONDA HERNANDEZ DO Ot 401.9 HYPERTENSION NOS 11/23/2015 RONDA HERNANDEZ DO Ot 491.20 OBSTR CHRONIC BRONCHITIS, W/O EXACERBATI 11/23/2015 SERGIO SWANSON MUSIC PUBLISHER Ot I89.0 LYMPHEDEMA, NOT ELSEWHERE CLASSIFIED 11/23/2015 SERGIO SWANSONP Ot Z08 ENCNTR FOR FOLLOW-UP EXAM AFTER TRTMT FO 11/23/2015 SERGIO SWANSONP Ot Z85.3 PERSONAL HISTORY OF MALIGNANT NEOPLASM O 11/23/2015 SERGIO SWANSONP Ot Z85.850 PERSONAL HISTORY OF MALIGNANT NEOPLASM O 11/23/2015 MARÍA ELENA PUGH Ot 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 11/23/2015 MARÍA ELENA PUGH Ot C73 MALIGNANT NEOPLASM OF THYROID GLAND 11/23/2015 MARÍA ELENA PUGH Ot I89.0 LYMPHEDEMA, NOT ELSEWHERE CLASSIFIED 11/23/2015 MARÍA ELENA PUGH Ot J44.9 CHRONIC OBSTRUCTIVE PULMONARY DISEASE, U 11/23/2015 MARÍA ELENA PUGH Ot M85.80 OTH DISRD OF BONE DENSITY AND STRUCTURE, 11/23/2015 MARÍA ELENA PUGH Ot R21 RASH AND OTHER NONSPECIFIC SKIN ERUPTION 11/23/2015 MARÍA ELENA PUGH Ot Z17.0 ESTROGEN RECEPTOR POSITIVE STATUS [ER+] 11/23/2015 MARÍA ELENA PUGH Ot Z79.811 [facility] (CURRENT) USE OF AROMATASE INH 11/23/2015 MARÍA ELENA PUGH Ot Z79.899 OTHER ABORIGINAL LIAISON OFFICER (CURRENT) DRUG THERAPY 11/24/2015 SERGIO SWANSON MUSIC PUBLISHER Ot 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 11/24/2015 SERGIO SWANSON MUSIC PUBLISHER Ot 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, CERVICOTHORACIC REGIO 11/24/2015 SERGIO SWANSON MUSIC PUBLISHER Ot M85.9 DISORDER OF BONE DENSITY AND STRUCTURE, 11/24/2015 SERGIO SWANSON MUSIC PUBLISHER Ot N18.3 CHRONIC KIDNEY DISEASE, STAGE 3 ( MODERAT 11/24/2015 SERGIO SWANSON MUSIC PUBLISHER Ot Z12.31 ENCNTR SCREEN MAMMOGRAM FOR MALIGNANT NE 12/01/2015 MARÍA ELENA PU[facility] Ot 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 12/01/2015 MARÍA ELENA PUGH Ot C73 MALIGNANT NEOPLASM OF THYROID GLAND 12/01/2015 MARÍA ELENA PUGH Ot I89.0 LYMPHEDEMA, NOT ELSEWHERE CLASSIFIED 12/01/2015 MARÍA ELENA PUGH Ingrid Ot J44.9 CHRONIC OBSTRUCTIVE PULMONARY DISEASE, U 12/01/2015 MARÍA ELENA PUGH Ingrid Ot M85.80 OTH DISRD OF BONE DENSITY AND STRUCTURE, 12/01/2015 MARÍA ELENA PGUH Ot R21 RASH AND OTHER NONSPECIFIC SKIN ERUPTION 12/01/2015 MARÍA ELENA PUGH Ingrid Ot Z17.0 ESTROGEN RECEPTOR POSITIVE STATUS [ER+] 12/01/2015 MARÍA ELENA PUGH Ingrid Ot Z79.811 ABORIGINAL LIAISON OFFICER (CURRENT) USE OF AROMATASE INH 12/01/2015 MARÍA ELENA PUGH Ingrid Ot Z79.899 OTHER [facility] (CURRENT) DRUG THERAPY 12/06/2015 SERGIO SWANSON MUSIC PUBLISHER Ot 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 12/06/2015 SERGIO SWANSON MUSIC PUBLISHER Ot 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, CERVICOTHORACIC REGIO 12/06/2015 SERGIO SWANSON MUSIC PUBLISHER Ot M85.9 DISORDER OF BONE DENSITY AND STRUCTURE, 12/06/2015 SERGIO SWANSON MUSIC PUBLISHER Ot N18.3 CHRONIC KIDNEY DISEASE, STAGE 3 ( MODERAT 12/06/2015 SERGIO SWANSON MUSIC PUBLISHER Ot Z12.31 ENCNTR SCREEN MAMMOGRAM FOR MALIGNANT NE 02/28/2016 LEXYMARÍA ELENA UGALDE Ingrid Ot 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 02/28/2016 MARÍA ELENA PU[facility] Ingrid Ot C73 MALIGNANT NEOPLASM OF THYROID GLAND 02/28/2016 MARÍA ELENA PU[facility] Ingrid Ot I89.0 LYMPHEDEMA, NOT ELSEWHERE CLASSIFIED 02/28/2016 MARÍA ELENA PU[facility] Ingrid Ot J44.9 CHRONIC OBSTRUCTIVE PULMONARY DISEASE, U 02/28/2016 MARÍA ELENA PU[facility] Ingrid Ot M85.80 OTH DISRD OF BONE DENSITY AND STRUCTURE, 02/28/2016 MARÍA ELENA PU[facility] Ingrid Ot R21 RASH AND OTHER NONSPECIFIC SKIN ERUPTION 02/28/2016 MARÍA ELENA PUGH Ingrid Ot Z17.0 ESTROGEN RECEPTOR POSITIVE STATUS [ER+] 02/28/2016 MARÍA ELENA PU[facility] Ingrid Ot Z79.811 [facility] (CURRENT) USE OF AROMATASE INH 02/28/2016 MARÍA ELENA PU[facility] Ingrid Ot Z79.899 OTHER [facility] (CURRENT) DRUG THERAPY 02/28/2016 MARÍA ELENA PU[facility] N Ot 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 02/28/2016 MARÍA ELENA PUGH Ot C73 MALIGNANT NEOPLASM OF THYROID GLAND 02/28/2016 MARÍA ELENA PUGH Ot I89.0 LYMPHEDEMA, NOT ELSEWHERE CLASSIFIED 02/28/2016 MARÍA ELENA PU[facility] Ot J44.9 CHRONIC OBSTRUCTIVE PULMONARY DISEASE, U 02/28/2016 MARÍA ELENA PUGH Ot M85.80 OTH DISRD OF BONE DENSITY AND STRUCTURE, 02/28/2016 MARÍA ELENA PUGH Ot R21 RASH AND OTHER NONSPECIFIC SKIN ERUPTION 02/28/2016 MARÍA ELENA PUGH Ot Z17.0 ESTROGEN RECEPTOR POSITIVE STATUS [ER+] 02/28/2016 MARÍA ELENA PU[facility] N Ot Z79.811 [facility] (CURRENT) USE OF AROMATASE INH 02/28/2016 MARÍA ELENA [facility] N Ot Z79.899 OTHER [facility] (CURRENT) DRUG THERAPY 05/31/2016 MARÍA ELENA PU[facility] Ot 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 05/31/2016 MARÍA ELENA PUGH Ot C73 MALIGNANT NEOPLASM OF THYROID GLAND 05/31/2016 MARÍA ELENA PUGH Ot I89.0 LYMPHEDEMA, NOT ELSEWHERE CLASSIFIED 05/31/2016 MARÍA ELENA PUGH Ot J44.9 CHRONIC OBSTRUCTIVE PULMONARY DISEASE, U 05/31/2016 MARÍA ELENA PU[facility] N Ot M85.80 OTH DISRD OF BONE DENSITY AND STRUCTURE, 05/31/2016 MARÍA ELENA PUGH Ot R21 RASH AND OTHER NONSPECIFIC SKIN ERUPTION 05/31/2016 MARÍA ELENA PUGH Ot Z17.0 ESTROGEN RECEPTOR POSITIVE STATUS [ER+] 05/31/2016 MARÍA ELENA PU[facility] N Ot Z79.811 [facility] (CURRENT) USE OF AROMATASE INH 05/31/2016 MARÍA ELENA PU[facility] N Ot Z79.899 OTHER [facility] (CURRENT) DRUG THERAPY 06/06/2016 SERGIO SWANSON MUSIC PUBLISHER Ot I89.0 LYMPHEDEMA, NOT ELSEWHERE CLASSIFIED 06/06/2016 SERGIO SWANSON MUSIC PUBLISHER Ot Z85.3 PERSONAL HISTORY OF MALIGNANT NEOPLASM O 07/22/2016 MARÍA ELENA PUGH Ot 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 07/22/2016 MARÍA ELENA PU[facility] N Ot C73 MALIGNANT NEOPLASM OF THYROID GLAND 07/22/2016 MARÍA ELENA PUGH N Ot I89.0 LYMPHEDEMA, NOT ELSEWHERE CLASSIFIED 07/22/2016 MARÍA ELENA PUGH Ot J44.9 CHRONIC OBSTRUCTIVE PULMONARY DISEASE, U 07/22/2016 MARÍA ELENA PUGH N Ot M85.80 OTH DISRD OF BONE DENSITY AND STRUCTURE, 07/22/2016 MARÍA ELENA PUGH Ot R21 RASH AND OTHER NONSPECIFIC SKIN ERUPTION 07/22/2016 MARÍA ELENA PUGH Ot Z17.0 ESTROGEN RECEPTOR POSITIVE STATUS [ER+] 07/22/2016 MARÍA ELENA PUGH Ot Z79.811 ABORIGINAL LIAISON OFFICER (CURRENT) USE OF AROMATASE INH 07/22/2016 MARÍA ELENA PU[facility] N Ot Z79.899 OTHER [facility] (CURRENT) DRUG THERAPY 07/26/2016 MARÍA ELENA PUGH Ot 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 07/26/2016 MARÍA ELENA PUGH N Ot C73 MALIGNANT NEOPLASM OF THYROID GLAND 07/26/2016 MARÍA ELENA PUGH N Ot I89.0 LYMPHEDEMA, NOT ELSEWHERE CLASSIFIED 07/26/2016 MARÍA ELENA PUGH Ot J44.9 CHRONIC OBSTRUCTIVE PULMONARY DISEASE, U 07/26/2016 MARÍA ELENA PU[facility] N Ot M85.80 OTH DISRD OF BONE DENSITY AND STRUCTURE, 07/26/2016 MARÍA ELENA PUGH Ot R21 RASH AND OTHER NONSPECIFIC SKIN ERUPTION 07/26/2016 MARÍA ELENA PUGH Ot Z17.0 ESTROGEN RECEPTOR POSITIVE STATUS [ER+] 07/26/2016 MARÍA ELENA PU[facility] N Ot Z79.811 ABORIGINAL LIAISON OFFICER (CURRENT) USE OF AROMATASE INH 07/26/2016 MARÍA ELENA PUGH Ot Z79.899 OTHER ABORIGINAL LIAISON OFFICER (CURRENT) DRUG THERAPY 08/28/2016 MARÍA ELENA PU[facility] Ot 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 08/28/2016 MARÍA ELENA PU[facility] N Ot C73 MALIGNANT NEOPLASM OF THYROID GLAND 08/28/2016 MARÍA ELENA PU[facility] Ot I89.0 LYMPHEDEMA, NOT ELSEWHERE CLASSIFIED 08/28/2016 MARÍA ELENA PU[facility] Ot J44.9 CHRONIC OBSTRUCTIVE PULMONARY DISEASE, U 08/28/2016 MARÍA ELENA PU[facility] N Ot M85.80 OTH DISRD OF BONE DENSITY AND STRUCTURE, 08/28/2016 MARÍA ELENA PU[facility] Ot R21 RASH AND OTHER NONSPECIFIC SKIN ERUPTION 08/28/2016 MARÍA ELENA PU[facility] Ot Z17.0 ESTROGEN RECEPTOR POSITIVE STATUS [ER+] 08/28/2016 MARÍA ELENA PUGH Ot Z79.811 ABORIGINAL LIAISON OFFICER (CURRENT) USE OF AROMATASE INH 08/28/2016 MARÍA ELENA PU[facility] Ot Z79.899 OTHER [facility] (CURRENT) DRUG THERAPY 08/29/2016 MARÍA ELENA PU[facility] Ot 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 08/29/2016 MARÍA ELENA PU[facility] Ot C73 MALIGNANT NEOPLASM OF THYROID GLAND 08/29/2016 MARÍA ELENA PU[facility] Ot I89.0 LYMPHEDEMA, NOT ELSEWHERE CLASSIFIED 08/29/2016 MARÍA ELENA PU[facility] Ot J44.9 CHRONIC OBSTRUCTIVE PULMONARY DISEASE, U 08/29/2016 MARÍA ELENA PU[facility] Ot M85.80 OTH DISRD OF BONE DENSITY AND STRUCTURE, 08/29/2016 MARÍA ELENA PUGH Ot R21 RASH AND OTHER NONSPECIFIC SKIN ERUPTION 08/29/2016 MARÍA ELENA PU[facility] Ot Z17.0 ESTROGEN RECEPTOR POSITIVE STATUS [ER+] 08/29/2016 MARÍA ELENA PU[facility] Ot Z79.811 [facility] (CURRENT) USE OF AROMATASE INH 08/29/2016 AMRÍA ELENA PUGH Ot Z79.899 OTHER [facility] (CURRENT) DRUG THERAPY 09/25/2016 Ot 362.34 TRANSIENT ARTERIAL OCCLU 09/25/2016 Ot 433.30 MULT BILTRAL ARTERY OCCLUSION WO CEREBRA 09/25/2016 Ot 786.6 CHEST SWELLING/MASS/LUMP 09/25/2016 Ot 793.89 OTH (ABN) FINDINGS ON RADIOLOGICAL EXAMI 09/25/2016 Ot V76.12 OTH SCREEN MAMMO-MALIGN NEOPLASM OF STACIA 09/25/2016 Ot 611.72 LUMP OR MASS IN BREAST 09/25/2016 Ot 174.9 MALIGN NEOPL BREAST NOS 09/25/2016 Ot 611.72 LUMP OR MASS IN BREAST 09/25/2016 Ot V72.84 EXAM PRE-OPERATIVE NOS 09/25/2016 Ot 174.9 MALIGN NEOPL BREAST NOS 09/25/2016 Ot V72.63 PRE-PROCEDURAL LABORATORY EXAMINATION 09/25/2016 Ot V72.81 [id number] CARDIOVASCULAR 09/25/2016 Ot V74.8 SCREEN-BACTERIAL DIS NEC 09/25/2016 Ot 174.9 MALIGN NEOPL BREAST NOS 09/25/2016 Ot 240.9 GOITER NOS 09/25/2016 Ot 174.9 MALIGN NEOPL BREAST NOS 09/25/2016 Ot 241.0 NONTOX UNINODULAR GOITER 09/25/2016 Ot 174.9 MALIGN NEOPL BREAST NOS 09/25/2016 Ot 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 09/25/2016 Ot 241.0 NONTOX UNINODULAR GOITER 09/25/2016 Ot 457.1 OTHER LYMPHEDEMA 09/25/2016 Ot V15.3 HX OF IRRADIATION 09/25/2016 Ot V58.69 OTH MED,LT,CURRENT USE 09/25/2016 Ot V86.0 ESTROGEN RECEPTOR POSITIVE STATUS [ER+] 09/25/2016 Ot 733.90 BONE CARTILAGE DIS NOS 09/25/2016 Ot V49.81 ASYMPT POSTMENOPAUSAL STATUS (AGE-RELATE 09/25/2016 Ot V82.81 SCREENING FOR OSTEOPOROSIS 09/25/2016 Ot 241.1 NONTOX MULTINODUL GOITER 09/25/2016 Ot 780.79 OTH MALAISE FATIGUE 09/25/2016 Ot V72.83 EXAM PRE-OPERATIVE NEC 09/25/2016 Ot V74.8 SCREEN-BACTERIAL DIS NEC 09/25/2016 MARÍA ELENA PU[facility] Ot 174.3 MAL RADHA BREAST LOW-INNER 09/25/2016 MARÍA ELENA PU[facility] Ot 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 09/25/2016 LUX CONNOLLY, EDVIN Cortez Ot 782.3 EDEMA 09/25/2016 LUX CONNOLLY, EDVIN Cortez Ot 786.05 SHORTNESS OF BREATH 09/25/2016 MARÍA ELENA PUGH Ot 174.9 MALIGN NEOPL BREAST NOS 09/25/2016 MARÍA ELENA PUGH Ot V15.3 HX OF IRRADIATION 09/25/2016 MARÍA ELENA PUGH Ot V45.89 POSTSURGICAL STATES NEC 09/25/2016 MARÍA ELENA PUGH Ot 174.9 MALIGN NEOPL BREAST NOS 09/25/2016 MARÍA ELENA PUGH Ot 193 MALIGN NEOPL THYROID 09/25/2016 SERGIO SWANSON MUSIC PUBLISHER Ot 174.9 MALIGN NEOPL BREAST NOS 09/25/2016 SERGIO SWANSON MUSIC PUBLISHER Ot 193 MALIGN NEOPL THYROID 09/25/2016 MARÍA ELENA PU[facility] Ot V10.3 HX OF BREAST MALIGNANCY 09/25/2016 LUX CONNOLLY, EDVIN Cortez Ot V72.84 EXAM PRE-OPERATIVE NOS 09/25/2016 MARÍA ELENA PU[facility] N Ot 193 MALIGN NEOPL THYROID 09/25/2016 MARÍA ELENA PU[facility] Ot 174.9 MALIGN NEOPL BREAST NOS 09/25/2016 MARÍA ELENA PU[facility] N Ot 193 MALIGN NEOPL THYROID 09/25/2016 MARÍA ELENA PU[facility] N Ot 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 09/25/2016 MARÍA ELENA PU[facility] N Ot 457.1 OTHER LYMPHEDEMA 09/25/2016 MARÍA ELENA PU[facility] Ot 585.3 CHRONIC KIDNEY DISEASE, STAGE III (MODER 09/25/2016 MARÍA ELENA PU[facility] Ot V15.3 HX OF IRRADIATION 09/25/2016 MARÍA ELENA PU[facility] Ot V58.69 OTH MED,LT,CURRENT USE 09/25/2016 MARÍA ELENA PU[facility] Ot V86.0 ESTROGEN RECEPTOR POSITIVE STATUS [ER+] 09/25/2016 SERGIO SWANSON MUSIC PUBLISHER Ot 174.9 MALIGN NEOPL BREAST NOS 09/25/2016 SERGIO SWANSON MUSIC PUBLISHER Ot 193 MALIGN NEOPL THYROID 09/25/2016 SERGIO SWANSON MUSIC PUBLISHER Ot 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 09/25/2016 SERGIO SWANSON MUSIC PUBLISHER Ot 457.1 OTHER LYMPHEDEMA 09/25/2016 SERGIO SWANSON MUSIC PUBLISHER Ot 496 CHR AIRWAY OBSTRUCT NEC 09/25/2016 SERGIO SWANSON MUSIC PUBLISHER Ot 585.3 CHRONIC KIDNEY DISEASE, STAGE III ( MODER 09/25/2016 SERGIO SWANSON MUSIC PUBLISHER Ot 686.9 LOCAL SKIN INFECTION NOS 09/25/2016 SERGIO SWANSON MUSIC PUBLISHER Ot 733.90 BONE CARTILAGE DIS NOS 09/25/2016 SERGIO SWANSON MUSIC PUBLISHER Ot 883.0 OPEN WOUND OF FINGER 09/25/2016 SERGIO SWANSON MUSIC PUBLISHER Ot E000.8 OTHER EXTERNAL CAUSE STATUS 09/25/2016 SERGIO SWANSON MUSIC PUBLISHER Ot E906.8 INJ NEC CAUSED BY ANIMAL 09/25/2016 SERGIO SWANSON MUSIC PUBLISHER Ot V15.3 HX OF IRRADIATION 09/25/2016 SERGIO SWANSONP Ot V58.69 OTH MED,LT,CURRENT USE 09/25/2016 SERGIO SWANSON MUSIC PUBLISHER Ot V86.0 ESTROGEN RECEPTOR POSITIVE STATUS [ER+] 09/25/2016 SERGIO SWANSON MUSIC PUBLISHER Ot 174.9 MALIGN NEOPL BREAST NOS 09/25/2016 SERGIO SWANSON MUSIC PUBLISHER Ot 193 MALIGN NEOPL THYROID 09/25/2016 SERGIO SWANSON MUSIC PUBLISHER Ot 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 09/25/2016 SERGIO SWANSON MUSIC PUBLISHER Ot 457.1 OTHER LYMPHEDEMA 09/25/2016 SERGIO SWANSON MUSIC PUBLISHER Ot 585.3 CHRONIC KIDNEY DISEASE, STAGE III ( MODER 09/25/2016 SERGIO SWANSON MUSIC PUBLISHER Ot V15.3 HX OF IRRADIATION 09/25/2016 SERGIO SWANSONP Ot V58.69 OTH MED,LT,CURRENT USE 09/25/2016 SERGIO SWANSON MUSIC PUBLISHER Ot V86.0 ESTROGEN RECEPTOR POSITIVE STATUS [ER+] 09/25/2016 SERGIO SWANSON MUSIC PUBLISHER Ot 174.9 MALIGN NEOPL BREAST NOS 09/25/2016 SERGIO SWANSON MUSIC PUBLISHER Ot 733.90 BONE CARTILAGE DIS NOS 09/25/2016 SERGIO SWANSON MUSIC PUBLISHER Ot V07.59 USE OF OTH AGENTS AFF ESTROGEN RECEPTORS 09/25/2016 SERGIO SWANSON MUSIC PUBLISHER Ot 174.9 MALIGN NEOPL BREAST NOS 09/25/2016 SERGIO SWANSON MUSIC PUBLISHER Ot 733.90 BONE CARTILAGE DIS NOS 09/25/2016 SERGIO SWANSON MUSIC PUBLISHER Ot V07.59 USE OF OTH AGENTS AFF ESTROGEN RECEPTORS 09/25/2016 SERGIO SWANSON MUSIC PUBLISHER Ot 174.9 MALIGN NEOPL BREAST NOS 09/25/2016 SERGIO SWANSON MUSIC PUBLISHER Ot 193 MALIGN NEOPL THYROID 09/25/2016 SERGIO SWANSON MUSIC PUBLISHER Ot 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 09/25/2016 SERGIO SWANSON MUSIC PUBLISHER Ot 457.1 OTHER LYMPHEDEMA 09/25/2016 SERGIO SWANSON MUSIC PUBLISHER Ot 585.3 CHRONIC KIDNEY DISEASE, STAGE III ( MODER 09/25/2016 SERGIO SWANSON MUSIC PUBLISHER Ot 719.45 JOINT PAIN-PELVIS 09/25/2016 SERGIO SWANSON MUSIC PUBLISHER Ot 724.1 PAIN IN THORACIC SPINE 09/25/2016 SERGIO SWANSON MUSIC PUBLISHER Ot 733.90 BONE CARTILAGE DIS NOS 09/25/2016 SERGIO SWANSONP Ot V15.3 HX OF IRRADIATION 09/25/2016 SERGIO SWANSONP Ot V58.69 OTH MED,LT,CURRENT USE 09/25/2016 SERGIO SWANSON MUSIC PUBLISHER Ot V86.0 ESTROGEN RECEPTOR POSITIVE STATUS [ER+] 09/25/2016 SERGIO SWANSON MUSIC PUBLISHER Ot 174.9 MALIGN NEOPL BREAST NOS 09/25/2016 SERGIO SWANSON MUSIC PUBLISHER Ot 574.20 CHOLELITHIASIS NOS 09/25/2016 SERGIO SWANSON MUSIC PUBLISHER Ot 724.1 PAIN IN THORACIC SPINE 09/25/2016 SERGIO SWANSON MUSIC PUBLISHER Ot 724.2 LUMBAGO 09/25/2016 SERGIO SWANSON MUSIC PUBLISHER Ot 724.1 PAIN IN THORACIC SPINE 09/25/2016 SERGIO SWANSON MUSIC PUBLISHER Ot 724.2 LUMBAGO 09/25/2016 SERGIO SWANSON MUSIC PUBLISHER Ot 174.9 MALIGN NEOPL BREAST NOS 09/25/2016 SERGIO SWANSON MUSIC PUBLISHER Ot 193 MALIGN NEOPL THYROID 09/25/2016 SERGIO SWANSON MUSIC PUBLISHER Ot 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 09/25/2016 SERGIO SWANSON MUSIC PUBLISHER Ot 457.1 OTHER LYMPHEDEMA 09/25/2016 SERGIO SWANSON MUSIC PUBLISHER Ot 585.3 CHRONIC KIDNEY DISEASE, STAGE III ( MODER 09/25/2016 SERGIO SWANSON MUSIC PUBLISHER Ot 719.45 JOINT PAIN-PELVIS 09/25/2016 SERGIO SWANSON MUSIC PUBLISHER Ot 724.1 PAIN IN THORACIC SPINE 09/25/2016 SERGIO SWANSON MUSIC PUBLISHER Ot 733.90 BONE CARTILAGE DIS NOS 09/25/2016 SERGIO SWANSON MUSIC PUBLISHER Ot V15.3 HX OF IRRADIATION 09/25/2016 SERGIO SWANSONP Ot V58.69 OTH MED,LT,CURRENT USE 09/25/2016 SERGIO SWANSON MUSIC PUBLISHER Ot V86.0 ESTROGEN RECEPTOR POSITIVE STATUS [ER+] 09/25/2016 Ot V10.3 HX OF BREAST MALIGNANCY 09/25/2016 Ot V76.11 SCRN MAMMO-HIGH RISK PT, MALIGNANT NEOPL 09/25/2016 SERGIO SWANSON MUSIC PUBLISHER Ot 174.9 MALIGN NEOPL BREAST NOS 09/25/2016 SERGIO SWANSON MUSIC PUBLISHER Ot 193 MALIGN NEOPL THYROID 09/25/2016 SERGIO SWANSON MUSIC PUBLISHER Ot 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 09/25/2016 SERGIO SWANSON MUSIC PUBLISHER Ot 457.1 OTHER LYMPHEDEMA 09/25/2016 SERGIO SWANSON MUSIC PUBLISHER Ot 496 CHR AIRWAY OBSTRUCT NEC 09/25/2016 SERGIO SWANSON MUSIC PUBLISHER Ot 585.3 CHRONIC KIDNEY DISEASE, STAGE III ( MODER 09/25/2016 SERGIO SWANSONP Ot 733.90 BONE CARTILAGE DIS NOS 09/25/2016 SERGIO SWANSON Ot V58.69 OTH MED,LT,CURRENT USE 09/25/2016 SERGIO SWANSON MUSIC PUBLISHER Ot V86.0 ESTROGEN RECEPTOR POSITIVE STATUS [ER+] 09/25/2016 SERGIO SWANSON MUSIC PUBLISHER Ot 174.9 MALIGN NEOPL BREAST NOS 09/25/2016 RONDA HERNANDEZ DO Ot 278.00 OBESITY, NOS 09/25/2016 RONDA HERNANDEZ DO Ot 401.9 HYPERTENSION NOS 09/25/2016 RONDA HERNANDEZ DO Ot 491.20 OBSTR CHRONIC BRONCHITIS, W/O EXACERBATI 09/25/2016 SERGIO SWANSONP Ot I89.0 LYMPHEDEMA, NOT ELSEWHERE CLASSIFIED 09/25/2016 SERGIO SWANSONP Ot Z08 ENCNTR FOR FOLLOW-UP EXAM AFTER TRTMT FO 09/25/2016 SERGIO SWANSON MUSIC PUBLISHER Ot Z85.3 PERSONAL HISTORY OF MALIGNANT NEOPLASM O 09/25/2016 SERGIO SWANSON MUSIC PUBLISHER Ot Z85.850 PERSONAL HISTORY OF MALIGNANT NEOPLASM O 09/25/2016 SERGIO SWANSON MUSIC PUBLISHER Ot 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 09/25/2016 SERGIO SWANSON MUSIC PUBLISHER Ot 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, CERVICOTHORACIC REGIO 09/25/2016 SERGIO SWANSON MUSIC PUBLISHER Ot M85.9 DISORDER OF BONE DENSITY AND STRUCTURE, 09/25/2016 SERGIO SWANSON MUSIC PUBLISHER Ot N18.3 CHRONIC KIDNEY DISEASE, STAGE 3 ( MODERAT 09/25/2016 SERGIO SWANSON Ot Z12.31 ENCNTR SCREEN MAMMOGRAM FOR MALIGNANT NE 09/25/2016 MARÍA ELENA PUGH Ingrid Ot 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 09/25/2016 MARÍA ELENA PUGH Ingrid Ot C73 MALIGNANT NEOPLASM OF THYROID GLAND 09/25/2016 MARÍA ELENA PUGH Ingrid Ot I89.0 LYMPHEDEMA, NOT ELSEWHERE CLASSIFIED 09/25/2016 LEXYJOSEMANUELBERTIN Ingrid Ot J44.9 CHRONIC OBSTRUCTIVE PULMONARY DISEASE, U 09/25/2016 MARÍA ELENA PUGH Ingrid Ot M85.80 OTH DISRD OF BONE DENSITY AND STRUCTURE, 09/25/2016 LEXYJOSEMANUELBERTIN Ingrid Ot R21 RASH AND OTHER NONSPECIFIC SKIN ERUPTION 09/25/2016 LEXY MARÍA ELENA Ingrid Ot Z17.0 ESTROGEN RECEPTOR POSITIVE STATUS [ER+] 09/25/2016 MARÍA ELENA PUGH Ingrid Ot Z79.811 [facility] (CURRENT) USE OF AROMATASE INH 09/25/2016 LEXYJOSEMANUELBERTIN Ingrid Ot Z79.899 OTHER [facility] (CURRENT) DRUG THERAPY 09/26/2016 Ot 362.34 TRANSIENT ARTERIAL OCCLU 09/26/2016 Ot 433.30 MULT BILTRAL ARTERY OCCLUSION WO CEREBRA 09/26/2016 Ot 786.6 CHEST SWELLING/MASS/LUMP 09/26/2016 Ot 793.89 OTH (ABN) FINDINGS ON RADIOLOGICAL EXAMI 09/26/2016 Ot V76.12 OTH SCREEN MAMMO-MALIGN NEOPLASM OF STACIA 09/26/2016 Ot 611.72 LUMP OR MASS IN BREAST 09/26/2016 Ot 174.9 MALIGN NEOPL BREAST NOS 09/26/2016 Ot 611.72 LUMP OR MASS IN BREAST 09/26/2016 Ot V72.84 EXAM PRE-OPERATIVE NOS 09/26/2016 Ot 174.9 MALIGN NEOPL BREAST NOS 09/26/2016 Ot V72.63 PRE-PROCEDURAL LABORATORY EXAMINATION 09/26/2016 Ot V72.81 [id number] CARDIOVASCULAR 09/26/2016 Ot V74.8 SCREEN-BACTERIAL DIS NEC 09/26/2016 Ot 174.9 MALIGN NEOPL BREAST NOS 09/26/2016 Ot 240.9 GOITER NOS 09/26/2016 Ot 174.9 MALIGN NEOPL BREAST NOS 09/26/2016 Ot 241.0 NONTOX UNINODULAR GOITER 09/26/2016 Ot 174.9 MALIGN NEOPL BREAST NOS 09/26/2016 Ot 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 09/26/2016 Ot 241.0 NONTOX UNINODULAR GOITER 09/26/2016 Ot 457.1 OTHER LYMPHEDEMA 09/26/2016 Ot V15.3 HX OF IRRADIATION 09/26/2016 Ot V58.69 OTH MED,LT,CURRENT USE 09/26/2016 Ot V86.0 ESTROGEN RECEPTOR POSITIVE STATUS [ER+] 09/26/2016 Ot 733.90 BONE CARTILAGE DIS NOS 09/26/2016 Ot V49.81 ASYMPT POSTMENOPAUSAL STATUS (AGE-RELATE 09/26/2016 Ot V82.81 SCREENING FOR OSTEOPOROSIS 09/26/2016 Ot 241.1 NONTOX MULTINODUL GOITER 09/26/2016 Ot 780.79 OTH MALAISE FATIGUE 09/26/2016 Ot V72.83 EXAM PRE-OPERATIVE NEC 09/26/2016 Ot V74.8 SCREEN-BACTERIAL DIS NEC 09/26/2016 MARÍA ELENA PUGH Ot 174.3 MAL RADHA BREAST LOW-INNER 09/26/2016 MARÍA ELENA PUGH Ot 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 09/26/2016 EDVIN WASSERMAN MD Ot 782.3 EDEMA 09/26/2016 EDVIN WASSERMAN MD Ot 786.05 SHORTNESS OF BREATH 09/26/2016 MARÍA ELENA PUGH Ot 174.9 MALIGN NEOPL BREAST NOS 09/26/2016 MARÍA ELENA PUGH Ot V15.3 HX OF IRRADIATION 09/26/2016 MARÍA ELENA PUGH Ot V45.89 POSTSURGICAL STATES NEC 09/26/2016 MARÍA ELENA PUGH Ot 174.9 MALIGN NEOPL BREAST NOS 09/26/2016 MARÍA ELENA PUGH Ot 193 MALIGN NEOPL THYROID 09/26/2016 SERGIO SWANSON MUSIC PUBLISHER Ot 174.9 MALIGN NEOPL BREAST NOS 09/26/2016 SERGIO SWANSON MUSIC PUBLISHER Ot 193 MALIGN NEOPL THYROID 09/26/2016 MARÍA ELENA PUGH Ot V10.3 HX OF BREAST MALIGNANCY 09/26/2016 EDVIN WASSERMAN MD Ot V72.84 EXAM PRE-OPERATIVE NOS 09/26/2016 MARÍA ELENA PUGH Ot 193 MALIGN NEOPL THYROID 09/26/2016 MARÍA ELENA PUGH Ot 174.9 MALIGN NEOPL BREAST NOS 09/26/2016 MARÍA ELENA PUGH N Ot 193 MALIGN NEOPL THYROID 09/26/2016 MARÍA ELENA PUGH Ot 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 09/26/2016 MARÍA ELENA PUGH N Ot 457.1 OTHER LYMPHEDEMA 09/26/2016 MARÍA ELENA PUGH Ot 585.3 CHRONIC KIDNEY DISEASE, STAGE III (MODER 09/26/2016 MARÍA ELENA PUGH Ot V15.3 HX OF IRRADIATION 09/26/2016 MARÍA ELENA PUGH Ot V58.69 OTH MED,LT,CURRENT USE 09/26/2016 MARÍA ELENA PUGH Ot V86.0 ESTROGEN RECEPTOR POSITIVE STATUS [ER+] 09/26/2016 SERGIO SWANSON MUSIC PUBLISHER Ot 174.9 MALIGN NEOPL BREAST NOS 09/26/2016 SERGIO SWANSON MUSIC PUBLISHER Ot 193 MALIGN NEOPL THYROID 09/26/2016 SERGIO SWANSON MUSIC PUBLISHER Ot 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 09/26/2016 SERGIO SWANSON MUSIC PUBLISHER Ot 457.1 OTHER LYMPHEDEMA 09/26/2016 SERGIO SWANSON MUSIC PUBLISHER Ot 496 CHR AIRWAY OBSTRUCT NEC 09/26/2016 SERGIO SWANSON MUSIC PUBLISHER Ot 585.3 CHRONIC KIDNEY DISEASE, STAGE III ( MODER 09/26/2016 SERGIO SWANSON MUSIC PUBLISHER Ot 686.9 LOCAL SKIN INFECTION NOS 09/26/2016 SERGIO SWANSON MUSIC PUBLISHER Ot 733.90 BONE CARTILAGE DIS NOS 09/26/2016 SERGIO SWANSON MUSIC PUBLISHER Ot 883.0 OPEN WOUND OF FINGER 09/26/2016 SERGIO SWANSON MUSIC PUBLISHER Ot E000.8 OTHER EXTERNAL CAUSE STATUS 09/26/2016 SERGIO SWANSON MUSIC PUBLISHER Ot E906.8 INJ NEC CAUSED BY ANIMAL 09/26/2016 SERGIO SWANSON MUSIC PUBLISHER Ot V15.3 HX OF IRRADIATION 09/26/2016 SERGIO SWANSONP Ot V58.69 OTH MED,LT,CURRENT USE 09/26/2016 SERGIO SWANSON MUSIC PUBLISHER Ot V86.0 ESTROGEN RECEPTOR POSITIVE STATUS [ER+] 09/26/2016 SERGIO SWANSON MUSIC PUBLISHER Ot 174.9 MALIGN NEOPL BREAST NOS 09/26/2016 SERGIO SWANSON MUSIC PUBLISHER Ot 193 MALIGN NEOPL THYROID 09/26/2016 SERGIO SWANSON MUSIC PUBLISHER Ot 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 09/26/2016 SERGIO SWANSON MUSIC PUBLISHER Ot 457.1 OTHER LYMPHEDEMA 09/26/2016 SERGIO SWANSONP Ot 585.3 CHRONIC KIDNEY DISEASE, STAGE III ( MODER 09/26/2016 SERGIO SWANSON MUSIC PUBLISHER Ot V15.3 HX OF IRRADIATION 09/26/2016 SERGIO SWANSONP Ot V58.69 OTH MED,LT,CURRENT USE 09/26/2016 SERGIO SWANSONP Ot V86.0 ESTROGEN RECEPTOR POSITIVE STATUS [ER+] 09/26/2016 SERGIO SWANSON MUSIC PUBLISHER Ot 174.9 MALIGN NEOPL BREAST NOS 09/26/2016 SERGIO SWANSONP Ot 733.90 BONE CARTILAGE DIS NOS 09/26/2016 SERGIO SWANSON MUSIC PUBLISHER Ot V07.59 USE OF OTH AGENTS AFF ESTROGEN RECEPTORS 09/26/2016 SERGIO SWANSON MUSIC PUBLISHER Ot 174.9 MALIGN NEOPL BREAST NOS 09/26/2016 SERGIO SWANSONP Ot 733.90 BONE CARTILAGE DIS NOS 09/26/2016 SERGIO SWANSONP Ot V07.59 USE OF OTH AGENTS AFF ESTROGEN RECEPTORS 09/26/2016 SERGIO SWANSON MUSIC PUBLISHER Ot 174.9 MALIGN NEOPL BREAST NOS 09/26/2016 SERGIO SWANSONP Ot 193 MALIGN NEOPL THYROID 09/26/2016 SERGIO SWANSONP Ot 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 09/26/2016 SERGIO SWANSONP Ot 457.1 OTHER LYMPHEDEMA 09/26/2016 SERGIO SWANSONP Ot 585.3 CHRONIC KIDNEY DISEASE, STAGE III ( MODER 09/26/2016 SERGIO SWANSONP Ot 719.45 JOINT PAIN-PELVIS 09/26/2016 SERGIO SWANSONP Ot 724.1 PAIN IN THORACIC SPINE 09/26/2016 SERGIO SWANSON MUSIC PUBLISHER Ot 733.90 BONE CARTILAGE DIS NOS 09/26/2016 SWANSON, HILAH S MUSIC PUBLISHER Ot V15.3 HX OF IRRADIATION 09/26/2016 SERGIO SWANSON MUSIC PUBLISHER Ot V58.69 OTH MED,LT,CURRENT USE 09/26/2016 SERGIO SWANSON MUSIC PUBLISHER Ot V86.0 ESTROGEN RECEPTOR POSITIVE STATUS [ER+] 09/26/2016 SERGIO SWANSON MUSIC PUBLISHER Ot 174.9 MALIGN NEOPL BREAST NOS 09/26/2016 SERGIO SWANSON MUSIC PUBLISHER Ot 574.20 CHOLELITHIASIS NOS 09/26/2016 SERGIO SWANSON MUSIC PUBLISHER Ot 724.1 PAIN IN THORACIC SPINE 09/26/2016 SERGIO SWANSON MUSIC PUBLISHER Ot 724.2 LUMBAGO 09/26/2016 SERGIO SWANSON MUSIC PUBLISHER Ot 724.1 PAIN IN THORACIC SPINE 09/26/2016 SERGIO SWANSON MUSIC PUBLISHER Ot 724.2 LUMBAGO 09/26/2016 SERGIO SWANSON MUSIC PUBLISHER Ot 174.9 MALIGN NEOPL BREAST NOS 09/26/2016 SERGIO SWANSON MUSIC PUBLISHER Ot 193 MALIGN NEOPL THYROID 09/26/2016 SERGIO SWANSON MUSIC PUBLISHER Ot 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 09/26/2016 SERGIO SWANSON MUSIC PUBLISHER Ot 457.1 OTHER LYMPHEDEMA 09/26/2016 SERGIO SWANSON MUSIC PUBLISHER Ot 585.3 CHRONIC KIDNEY DISEASE, STAGE III ( MODER 09/26/2016 SERGIO SWANSON MUSIC PUBLISHER Ot 719.45 JOINT PAIN-PELVIS 09/26/2016 SEGRIO SWANSON MUSIC PUBLISHER Ot 724.1 PAIN IN THORACIC SPINE 09/26/2016 SERGIO SWANSON MUSIC PUBLISHER Ot 733.90 BONE CARTILAGE DIS NOS 09/26/2016 SERGIO SWANSON MUSIC PUBLISHER Ot V15.3 HX OF IRRADIATION 09/26/2016 SERGIO SWANSON MUSIC PUBLISHER Ot V58.69 OTH MED,LT,CURRENT USE 09/26/2016 SERGIO SWANSON MUSIC PUBLISHER Ot V86.0 ESTROGEN RECEPTOR POSITIVE STATUS [ER+] 09/26/2016 Ot V10.3 HX OF BREAST MALIGNANCY 09/26/2016 Ot V76.11 SCRN MAMMO-HIGH RISK PT, MALIGNANT NEOPL 09/26/2016 SERGIO SWANSON MUSIC PUBLISHER Ot 174.9 MALIGN NEOPL BREAST NOS 09/26/2016 SERGIO SWANSON MUSIC PUBLISHER Ot 193 MALIGN NEOPL THYROID 09/26/2016 SERGIO SWANSON MUSIC PUBLISHER Ot 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 09/26/2016 SERGIO SWANSON MUSIC PUBLISHER Ot 457.1 OTHER LYMPHEDEMA 09/26/2016 SERGIO SWANSONP Ot 496 CHR AIRWAY OBSTRUCT NEC 09/26/2016 SERGIO SWANSONP Ot 585.3 CHRONIC KIDNEY DISEASE, STAGE III ( MODER 09/26/2016 SERGIO SWANSON MUSIC PUBLISHER Ot 733.90 BONE CARTILAGE DIS NOS 09/26/2016 SERGIO SWANSONP Ot V58.69 OTH MED,LT,CURRENT USE 09/26/2016 SERGIO SWANSON MUSIC PUBLISHER Ot V86.0 ESTROGEN RECEPTOR POSITIVE STATUS [ER+] 09/26/2016 SERGIO SWANSON MUSIC PUBLISHER Ot 174.9 MALIGN NEOPL BREAST NOS 09/26/2016 RONDA HERNANDEZ DO Ot 278.00 OBESITY, NOS 09/26/2016 RONDA HERNANDEZ DO Ot 401.9 HYPERTENSION NOS 09/26/2016 RONDA HERNANDEZ DO Ot 491.20 OBSTR CHRONIC BRONCHITIS, W/O EXACERBATI 09/26/2016 ESRGIO SWANSONP Ot I89.0 LYMPHEDEMA, NOT ELSEWHERE CLASSIFIED 09/26/2016 SERGIO SWANSON MUSIC PUBLISHER Ot Z08 ENCNTR FOR FOLLOW-UP EXAM AFTER TRTMT FO 09/26/2016 SERGIO SWANSONP Ot Z85.3 PERSONAL HISTORY OF MALIGNANT NEOPLASM O 09/26/2016 SERGIO SWANSONP Ot Z85.850 PERSONAL HISTORY OF MALIGNANT NEOPLASM O 09/26/2016 SERGIO SWANSON MUSIC PUBLISHER Ot 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 09/26/2016 SERGIO SWANSONP Ot 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, CERVICOTHORACIC REGIO 09/26/2016 SERGIO SWANSON MUSIC PUBLISHER Ot M85.9 DISORDER OF BONE DENSITY AND STRUCTURE, 09/26/2016 SERGIO SWANSON MUSIC PUBLISHER Ot N18.3 CHRONIC KIDNEY DISEASE, STAGE 3 ( MODERAT 09/26/2016 SERGIO SWANSON MUSIC PUBLISHER Ot Z12.31 ENCNTR SCREEN MAMMOGRAM FOR MALIGNANT NE 09/26/2016 MARÍA ELENA PUGH Ingrid Ot 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 09/26/2016 MARÍA ELENA PUGH Ingrid Ot C73 MALIGNANT NEOPLASM OF THYROID GLAND 09/26/2016 MARÍA ELENA PUGH Ot I89.0 LYMPHEDEMA, NOT ELSEWHERE CLASSIFIED 09/26/2016 MARÍA ELENA PUGH Ingrid Ot J44.9 CHRONIC OBSTRUCTIVE PULMONARY DISEASE, U 09/26/2016 MARÍA ELENA PUGH Ingrid Ot M85.80 OTH DISRD OF BONE DENSITY AND STRUCTURE, 09/26/2016 MARÍA ELENA PUGH Ingrid Ot R21 RASH AND OTHER NONSPECIFIC SKIN ERUPTION 09/26/2016 MARÍA ELENA PUGH Ot Z17.0 ESTROGEN RECEPTOR POSITIVE STATUS [ER+] 09/26/2016 MARÍA ELENA PUGH Ingrid Ot Z79.811 [facility] (CURRENT) USE OF AROMATASE INH 09/26/2016 MARÍA ELENA PUGH Ingrid Ot Z79.899 OTHER ABORIGINAL LIAISON OFFICER (CURRENT) DRUG THERAPY 09/27/2016 KATE MO MD Ot E03.9 HYPOTHYROIDISM, UNSPECIFIED 09/27/2016 KATE MO MD, Ot F32.9 MAJOR DEPRESSIVE DISORDER, SINGLE EPISOD 09/27/2016 KATE MO MD, Ot F41.9 ANXIETY DISORDER, UNSPECIFIED 09/27/2016 KATE MO MD, Ot I10 ESSENTIAL (PRIMARY) HYPERTENSION 09/27/2016 KATE MO MD Ot J42 UNSPECIFIED CHRONIC BRONCHITIS 09/27/2016 KATE MO MD, Ot J44.1 CHRONIC OBSTRUCTIVE PULMONARY DISEASE W 09/27/2016 KATE MO MD, Ot M19.90 UNSPECIFIED OSTEOARTHRITIS, UNSPECIFIED 09/27/2016 KATE MO MD, Ot R07.89 OTHER CHEST PAIN 09/27/2016 KATE MO MD, Ot Z79.82 [facility] (CURRENT) USE OF ASPIRIN 09/27/2016 KATE MO MD, Ot Z79.84 [facility] (CURRENT) USE OF ORAL HYPOGLYC 09/27/2016 KATE MO MD, Ot Z87.891 PERSONAL HISTORY OF NICOTINE DEPENDENCE Procedures Code Description Performed By Performed On . COMPLETE THYROIDECTOMY 06/12/2012 Results Test Result Range Complete blood count (CBC) with automated white blood cell (WBC) differential - 09/25/16 21:18 Blood leukocytes automated count (number/volume) 12.2 10*3/ uL 4.3-11.0 Blood erythrocytes automated count (number/volume) 3.86 10*6 /uL 4.35-5.85 Venous blood hemoglobin measurement (mass/volume) 11.4 g/dL 11.5-16.0 Blood hematocrit (volume fraction) 35 % 35-52 Automated erythrocyte mean corpuscular volume 89 [foz_us] 80-99 Automated erythrocyte mean corpuscular hemoglobin (mass per erythrocyte) 30 pg 25-34 Automated erythrocyte mean corpuscular hemoglobin concentration measurement ( mass/volume) 33 g/dL 32-36 Automated erythrocyte distribution width ratio 13.6 % 10.0-14.5 Automated blood platelet count (count/volume) 358 10*3/uL 130-400 Automated blood platelet mean volume measurement 10.7 [foz_ us] 7.4-10.4 Automated blood neutrophils/100 leukocytes 77 % 42-75 Automated blood lymphocytes/100 leukocytes 15 % 12-44 Blood monocytes/100 leukocytes 6 % 0-12 Automated blood eosinophils/100 leukocytes 2 % 0-10 Automated blood basophils/100 leukocytes 1 % 0-10 Blood neutrophils automated count (number/volume) 9.4 10*3 1.8-7.8 Blood lymphocytes automated count (number/volume) 1.8 10*3 1.0-4.0 Blood monocytes automated count (number/volume) 0.7 10*3 0.0-1.0 Automated eosinophil count 0.2 10*3/uL 0.0-0.3 Automated blood basophil count (count/volume) 0.1 10*3/uL 0.0-0.1 PT panel in platelet poor plasma by coagulation assay - 09/25/16 21:18 Prothrombin time (PT) in platelet poor plasma by coagulation assay 11.9 s 12.2-14.7 INR in platelet poor plasma or blood by coagulation assay 0.9 0.8-1.4 Activated partial thromboplastin time (aPTT) in platelet poor plasma bycoagulation assay - 09/25/16 21:18 Activated partial thromboplastin time (aPTT) in platelet poor plasma bycoagulation assay 26 s 24-35 Comprehensive metabolic panel - 09/25/16 21:18 Serum or plasma sodium measurement (moles/volume) 136 mmol/ L 135-145 Serum or plasma potassium measurement (moles/volume) 3.8 mmol/L 3.6-5.0 Serum or plasma chloride measurement (moles/volume) 95 mmol/ L 98-107 Carbon dioxide 27 mmol/L 21-32 Serum or plasma anion gap determination (moles/volume) 14 mmol/L 5-14 Serum or plasma urea nitrogen measurement (mass/volume) 18 mg/dL 7-18 Serum or plasma creatinine measurement (mass/volume) 0.96 mg /dL 0.60-1.30 Serum or plasma urea nitrogen/creatinine mass ratio 19 NRG Serum or plasma creatinine measurement with calculation of estimated glomerular filtration rate 56 NRG Serum or plasma glucose measurement (mass/volume) 113 mg/dL 70-105 Serum or plasma calcium measurement (mass/volume) 9.1 mg/dL 8.5-10.1 Serum or plasma total bilirubin measurement (mass/volume) 0.4 mg/dL 0.1-1.0 Serum or plasma alkaline phosphatase measurement (enzymatic activity/volume) 86 U/L 40-136 Serum or plasma aspartate aminotransferase measurement (enzymatic activity/ volume) 14 U/L 5-34 Serum or plasma alanine aminotransferase measurement (enzymatic activity/volume ) 13 U/L 0-55 Serum or plasma protein measurement (mass/volume) 6.7 g/dL 6.4-8.2 Serum or plasma albumin measurement (mass/volume) 4.0 g/dL 3.2-4.5 Serum or plasma lithium measurement (moles/volume) - 09/25/16 21:18 BNP level 61.5 pg/mL <100.0 Magnesium - 09/25/16 21:18 Magnesium 1.8 mg/dL 1.8-2.4 Serum or plasma troponin i.cardiac measurement (mass/volume) - 09/25/16 21:18 Serum or plasma troponin i.cardiac measurement (mass/volume) < ng/mL <0.30 Myoglobin, serum - 09/25/16 21:18 Myoglobin, serum 70.3 ng/mL 10.0-92.0 Serum or plasma troponin i.cardiac measurement (mass/volume) - 09/25/16 22:40 Serum or plasma troponin i.cardiac measurement (mass/volume) < ng/mL <0.30 Encounters ACCT No. Visit Date/Time Discharge Status Pt. Type Provider Facility Loc./Unit Complaint [id number] 05/20/2012 15:03:00 05/20/2012 23: 59:59 CLS Outpatient
== END 2016-09-25 23:37 | disposition home or self-care (01) ==
LOC: EDUNIT# 21:05 → ER 21:07
DX: J44.1 Chronic obstructive pulmonary disease with (acute) exacerbation (principal); J42 Unspecified chronic bronchitis; I10 Essential (primary) hypertension; M19.90 Unspecified osteoarthritis, unspecified site; E03.9 Hypothyroidism, unspecified; F41.9 Anxiety disorder, unspecified; F32.9 Major depressive disorder, single episode, unspecified; Z79.82 Long term (current) use of aspirin; Z79.84 Long term (current) use of oral hypoglycemic drugs; Z87.891 Personal history of nicotine dependence
CPT/HCPCS: 36415; 71010; 80053; 83735; 83874; 83880; 84484; 85025; 85610; 85730; 93005; 93041; 94640

== ENCOUNTER → 2016-11-25 | Outpatient (CLI) | payer MEDICARE, OTHER ==
[~2016-11-25] MED LIST changes: +LEVO125T6 PO; +METF500T8; +PRD20T PO
--- NOTE | 2016-11-26 15:30 | Diagnostic Imaging Report ---
Bilateral screening mammogram 2D views with tomosynthesis The current study was also evaluated with a Computer Aided Detection (CAD) system. Indication: Screening. No current complaints stated on the questionnaire. COMPARISON: 11/23/15. Findings: The breasts are composed of fibroglandular densities. There are scattered benign-appearing calcifications seen. Allowing for technique and positional differences, no suspicious change is seen. IMPRESSION: No significant change. ACR BI-RADS Category 2: Benign findings. Result letter will be mailed to the patient. Note: At least 10% of breast cancer is not imaged by mammography. Dictated by: Dictated on workstation # [id number]
== END ==
LOC: RAD 11:07
PROVIDERS: ATTEND Nurse Practitioner Adult Health
DX: Z12.31 Encounter for screening mammogram for malignant neoplasm of breast (principal); Z85.3 Personal history of malignant neoplasm of breast
CPT/HCPCS: 77067

== ENCOUNTER 2016-11-27 12:44 | Outpatient (RCR) | payer MEDICARE, OTHER ==
[~2016-11-27 12:44] MED LIST changes: +DENOSUMAB 60 MG/1 ML (PROLIA) CANCER CTR SQ SCH
[2016-11-27 13:07] LABS: BASOPHILS # (AUTO) 0.1 10^3/uL (0.0-0.1); BASOPHILS % (AUTO) 1 % (0-10); EOSINOPHILS # (AUTO) 0.2 10^3/uL (0.0-0.3); EOSINOPHILS % (AUTO) 2 % (0-10); LYMPHOCYTES # (AUTO) 1.3 X 10^3 (1.0-4.0); LYMPHOCYTES % (AUTO) 12 % (12-44); MEAN CORPUSCULAR HEMOGLOBIN 30 PG (25-34); MEAN CORPUSCULAR HGB CONC 33 G/DL (32-36); MEAN CORPUSCULAR VOLUME 90 FL (80-99); MEAN PLATELET VOLUME 10.3 FL (7.4-10.4); MONOCYTES # (AUTO) 0.8 X 10^3 (0.0-1.0); MONOCYTES % (AUTO) 7 % (0-12); NEUTROPHILS # (AUTO) 8.5 X 10^3 (1.8-7.8); NEUTROPHILS % (AUTO) 78 % (42-75); PLATELET COUNT 395 10^3/uL (130-400); RED CELL DISTRIBUTION WIDTH 13.9 % (10.0-14.5); WHITE BLOOD COUNT 10.8 10^3/uL (4.3-11.0)
[2016-11-27 13:51] LABS: ALANINE AMINOTRANSFERASE 14 U/L (0-55); ALBUMIN 4.1 GM/DL (3.2-4.5); ANION GAP 13 MMOL/L (5-14); ASPARTATE AMINO TRANSFERASE 11 U/L (5-34); BILIRUBIN,TOTAL 0.6 MG/DL (0.1-1.0); BLOOD UREA NITROGEN 19 MG/DL (7-18); BUN/CREATININE RATIO 23; CALCIUM 9.3 MG/DL (8.5-10.1); CARBON DIOXIDE 29 MMOL/L (21-32); CHLORIDE 96 MMOL/L (98-107); CREATININE SERUM 0.82 MG/DL (0.60-1.30); GFR ESTIMATED > 60; GLUCOSE 143 MG/DL (70-105); POTASSIUM 3.8 MMOL/L (3.6-5.0); SODIUM 138 MMOL/L (135-145); TOTAL PROTEIN 6.8 GM/DL (6.4-8.2)
[2016-11-27 14:11] LABS: THYROID STIMULATING HORMONE 0.11 UIU/ML (0.35-4.94)
[2016-11-28 06:30] LABS: VITAMIN D 25-HYDROXY (TOTAL) 47 ng/mL (30-100)
[2016-11-28 06:41] LABS: THYROGLOBULIN LEVELC <0.20 ng/mL (1.60-59.90)
[2016-11-29 07:25] LABS: THYROGLOBULIN AUTOANTIBODY PT 0.25 Units (0.00-0.50)
== END 2016-12-07 | disposition home or self-care (01) ==
LOC: ONC 12:44
PROVIDERS: ATTEND Internal Medicine Hematology & Oncology
DX: C50.111 Malignant neoplasm of central portion of right female breast (principal); C73 Malignant neoplasm of thyroid gland; M85.80 Other specified disorders of bone density and structure, unspecified site; I89.0 Lymphedema, not elsewhere classified; R21 Rash and other nonspecific skin eruption; J44.9 Chronic obstructive pulmonary disease, unspecified; Z17.0 Estrogen receptor positive status [ER+]; Z79.811 Long term (current) use of aromatase inhibitors; Z79.899 Other long term (current) drug therapy
CPT/HCPCS: 36415; 80053; 82306; 84432; 84443; 85025; 86800; 99213

== ENCOUNTER 2016-12-01 20:11 | Emergency (ER) | payer MEDICARE, OTHER ==
[~2016-12-01] VITALS: Ht 149.9 cm; Wt 85.7 kg
[~2016-12-01 20:11] MED LIST changes: -DENOSUMAB 60 MG/1 ML (PROLIA) CANCER CTR SQ SCH
[2016-12-01 20:59] VITALS: BP 148/70
== END 2016-12-01 20:59 | disposition home or self-care (01) ==
LOC: EDUNIT# 20:11 → ER 20:14
DX: R03.1 Nonspecific low blood-pressure reading (principal); J44.9 Chronic obstructive pulmonary disease, unspecified; I10 Essential (primary) hypertension; E03.9 Hypothyroidism, unspecified; E11.9 Type 2 diabetes mellitus without complications; Z87.19 Personal history of other diseases of the digestive system; Z90.49 Acquired absence of other specified parts of digestive tract; Z90.710 Acquired absence of both cervix and uterus; Z90.89 Acquired absence of other organs
CPT/HCPCS: 99281

== ENCOUNTER 2017-01-08 11:07 | Outpatient (RCR) | payer MEDICARE, OTHER ==
[~2017-01-08 11:07] MED LIST changes: -METF500T8; +METF500T8 PO
[2017-02-17] MEDS ORDERED: NITR-65 PO (21:41)
[2017-04-04] MEDS ORDERED: FAMO20TA3 PO (10:36)
[2017-04-04] MEDS ORDERED: FURO20TA4 PO (10:36)
[2017-04-04] MEDS ORDERED: ASCO500C17 PO (10:36)
[2017-04-04] MEDS ORDERED: TIOT18CA2 IH (10:36)
[2017-04-04] MEDS ORDERED: LETR2.5T5 PO (10:36)
[2017-04-04] MEDS ORDERED: LEVO100T7 PO (10:36)
[2017-04-04] MEDS ORDERED: CAND1TAB16 PO (10:36)
[2017-04-04] MEDS ORDERED: MAGN250T35 PO (10:36)
[2017-04-04] MEDS ORDERED: FLUT1DIS26 IH (10:36)
[2017-04-04] MEDS ORDERED: NEBI5TAB8 PO (10:36)
[2017-04-04] MEDS ORDERED: CHOL200014 PO (10:36)
[2017-04-04] MEDS ORDERED: [UNRECOGNIZED DRUG - CODE] PO ×2 (10:36)
[2017-04-04] MEDS ORDERED: OXAZ15CA PO (10:36)
[2017-04-04] MEDS ORDERED: RT-ALBUINH IH (10:36)
[2017-04-04] MEDS ORDERED: EZET10TA27 PO (10:36)
== END 2017-04-08 | disposition home or self-care (01) ==
LOC: ONC 11:07
PROVIDERS: ATTEND Internal Medicine Hematology & Oncology
DX: C50.111 Malignant neoplasm of central portion of right female breast (principal); C73 Malignant neoplasm of thyroid gland; M85.80 Other specified disorders of bone density and structure, unspecified site; J44.9 Chronic obstructive pulmonary disease, unspecified; Z17.0 Estrogen receptor positive status [ER+]; Z79.811 Long term (current) use of aromatase inhibitors; Z79.899 Other long term (current) drug therapy
CPT/HCPCS: 36415; 84443

== ENCOUNTER 2017-02-17 20:44 | Emergency (ER) | payer MEDICARE, OTHER ==
[~2017-02-17] VITALS: Ht 147.3 cm; Wt 84.8 kg
[~2017-02-17 20:44] MED LIST changes: +METF500T8; -METF500T8 PO
--- NOTE | 2017-02-17 20:57 | ED General ---
General Chief Complaint: Fever-Adult/Adol Stated Complaint: FEVER Source of Information: Patient History of Present Illness Time Seen by Provider: 20:52 Initial Comments PT ARRIVES VIA POV PT FELT LIKE SHE HAD CHILLS, SO CHECKED HER TEMP AND IT WAS 100, SO IMMEDIATELY RUSHED STRAIGHT HERE DID NOT TAKE ANYTHING FOR FEVER NO OTHER SYMPTOMS OF ANY KIND, AND FEELS COMPLETELY FINE PT HAS COPD AND IS O2 DEPENDENT, BUT NO INCREASE IN SHORTNESS OF BREATH AND NO SIGNIFICANT COUGH NO URI SYMPTOMS NO PAIN ANYWHERE NO NAUSEA/VOMITING/DIARRHEA NO URINARY SYMPTOMS APPETITE AND ACTIVITY HAVE BEEN NORMAL PCP: DR. WASSERMAN Allergies and Home Medications Allergies Coded Allergies: Sulfa (Sulfonamide Antibiotics) (Unverified Allergy, Mild, HIVES, 04/21/05) codeine (Unverified Allergy, Mild, NAUSEA, 04/21/05) atorvastatin (Verified Allergy, Unknown, 04/21/05) cephalexin (Unverified Allergy, Unknown, PT HAS REC ROCEPHIN,CEFTIN & AUGMENTIN IN PAST, 12/19/11) PER DR. WASSERMAN'S OFFICE PT HAS RECEIVED ROCEPHIN, CEFTIN, AND AUGMENTIN IN PAST WITHOUT PROBLEMS doxycycline (Verified Allergy, Unknown, 04/21/05) gatifloxacin (Verified Allergy, Unknown, 04/21/05) grepafloxacin (Verified Allergy, Unknown, 04/21/05) indapamide (Unverified Allergy, Unknown, 11/21/14) penbutolol (Verified Allergy, Unknown, 04/21/05) sulfamethoxazole (Verified Allergy, Unknown, 04/21/05) trimethoprim (Verified Allergy, Unknown, 04/21/05) Home Medications Acetaminophen 325 Mg Tablet, 325 MG PO Q6H PRN, (Reported) PRN PAIN Albuterol Sulfate 5 Mg/Ml Solution, 2 PUFF IH Q4H PRN, (Reported) COPD Ascorbate Calcium 500 Mg Tablet, 500 MG PO DAILY, (Reported) Aspirin 81 Mg Tabec, 81 MG PO DAILY, (Reported) Ca Cmb No.1/Vit D3/B-6/Fa/B12 1 Each Tablet, 2,000 UNIT PO DAILY, (Reported) Candesartan Cilexetil/Hctz 1 Each Tablet, 1 TAB PO DAILY, (Reported) 32-12.5 MG Docusate Sodium 100 Mg Capsule, 100 MG PO DAILY PRN, (Reported) PRN CONSTIPATION Ezetimibe 10 Mg Tablet, 10 MG PO DAILY, (Reported) Fluticasone/Salmeterol 250 Mcg/50 Mcg Inh, 1 PUFF PO BID, (Reported) ADVAIR 250/50 MCG Furosemide 20 Mg Tablet, 20 MG PO DAILY, (Reported) Hydroxyzine Pamoate 50 Mg Capsule, 50 MG PO Q6H, #20 Prescribed by: DANNIE BARBER on 11/14/142104 Ibuprofen 200 Mg Tablet, 400 MG PO DAILY PRN, (Reported) PRN FOR KNEE PAIN Letrozole 2.5 Mg Tablet, 2.5 MG PO DAILY, (Reported) Levothyroxine Sodium 125 Mcg Tablet, 125 MCG PO DAILY, #90 (Reported) Metformin HCl 500 Mg Tab.er.24h, #180 (Reported) Methylprednisolone 4 Mg Tab.ds.pk, 4 MG PO UD, #1 Prescribed by: DANNIE BARBER on 11/14/142104 Nebivolol Hcl 5 Mg Tablet, 5 MG PO DAILY, (Reported) Nitrofurantoin Monohyd/M-Cryst 100 Mg Capsule, 100 MG PO BID, #20 Prescribed by: DANNIE BARBER on 02/17/171 Omeprazole 20 Mg Capsule.dr, 20 MG PO BID, (Reported) Oxazepam 15 Mg Capsule, 15 MG PO DAILY IN AM, (Reported) TAKE ALONG WITH 10MG IN AM = TOTAL OF 25MG IN AM Oxazepam 10 Mg Capsule, 10 MG PO MORNING AND BEDTIME, (Reported) TAKES 10MG ALONG WITH 15MG IN AM AND JUST 10MG AT BEDTIME Oxazepam 10 Mg Capsule, 20 MG PO AT LUNCH & EVENING, (Reported) Polyethylene Glycol 119 Gm Btl, 17 GM PO DAILY, (Reported) Potassium Chloride 8 Meq Tablet.sa, 8 MEQ PO DAILY, (Reported) Prednisone 20 Mg Tab, 20 MG PO DAILY, #3 Ref 0 Prescribed by: KATE MO on 09/25/16 2331 Tiotropium [place] 18 Mcg Cap.w.dev, 1 PUFF PO DAILY, (Reported) Constitutional: see HPI, chills, No dizziness, fever, No malaise, No weakness EENTM: no symptoms reported Respiratory: no symptoms reported Cardiovascular: no symptoms reported Gastrointestinal: no symptoms reported Genitourinary: no symptoms reported Musculoskeletal: no symptoms reported Skin: no symptoms reported Psychiatric/Neurological: Anxiety (STATES "I GET MYSELF WORKED UP" ) Hematologic/Lymphatic: No Symptoms Reported Immunological/Allergic: no symptoms reported Past Vxezpgj-Xmmpck-Gerrig Hx Patient Social History Alcohol Use: Past History (QUIT DRINKING 35 YEARS AGO, PER PT ON 02/17/17) Recreational Drug Use: No Smoking Status: Former Smoker (QUIT SMOKING 13 YEARS AGO. 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" --SMOKED 2-3 PPD OF "LONG" CIGARETTES) Type Used: Cigarettes Former Smoker, Quit: Mar 10, 2004 Recent Foreign Travel: No Contact w/Someone Who Travel: No Recent Hopitalizations: No Immunizations Up To Date Tetanus Booster (TDap): Less than 5yrs Date of Pneumonia Vaccine: Dec 18, 2007 Date of Influenza Vaccine: Dec 13, 2011 Seasonal Allergies Seasonal Allergies: No Surgeries History of Surgeries: Yes (D&C X 2; RIGHT HAND SX; LASER CATARACT EYE SURGERY 11/08/14; HYST/BSO; RIGHT MASTECTOMY) Surgeries: Appendectomy, Breast, Eye Surgery, Hysterectomy, Oophorectomy, Orthopedic, Thyroidectomy, Tonsillectomy Respiratory History of Respiratory Disorde: Yes (HOME O2 AT 2L/NC) Respiratory Disorders: Asthma, Chronic Bronchitis, COPD Cardiovascular History of Cardiac Disorders: Yes (HOME O2 AT 2L/NC) Cardiac Disorders: High Cholesterol, Hypertension Neurological History of Neurological Disord: No 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 System Hx 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 Disorders: No Genitourinary History of Genitourinary Disor: No Gastrointestinal History of Gastrointestinal Di: Yes (GALLSTONES-NO SURGERY) Gastrointestinal Disorders: Chronic Constipation, Hemorrhoids, Gall Bladder Disease Musculoskeletal History of Musculoskeletal Dis: Yes (ARTHRITIS; LYMPHEDEMA RIGHT ARM-S/P RIGHT MASTECTOMY) Musculoskeletal Disorders: Arthritis Endocrine History of Endocrine Disorders: Yes (DM TYPE II; THYROID CANCER--S/P SURGERY) Endocrine Disorders: Hypothyroidsim, Diabetes, Non-Insulin dep HEENT History of HEENT Disorders: Yes HEENT Disorders: Cataract Cancer History of Cancer: Yes (10 axillary lymph nodes removed/3 positive nodes; RIGHT BREAST CANCER 2011; THYROID CANCER 2012) Cancer: Breast, Thyroid Did You Recieve Any Treatments: Yes (RIGHT MASTECTOMY + RADIATION; THYROIDECTOMY--NO CHEMO OR RADIATION) Type of Tx Receive: Radiation, Surgical Intervention Psychosocial History of Psychiatric Problem: Yes Behavioral Health Disorders: Anxiety, Depression Integumentary History of Skin or Integumenta: Yes Skin/Integumentary Disorders: Psoriasis Blood Transfusions History of Blood Disorders: No Physical Exam Vital Signs Vital Sign - Last 12Hours 02/17/17 21:04 Temp 100.2 Pulse 90 Resp 24 B/P (MAP) 173/72 (105) Pulse Ox 95 O2 Delivery Nasal Cannula O2 Flow Rate 2.00 Capillary Refill : General Appearance: No Apparent Distress, WD/WN, Anxious HEENT: PERRL/EOMI, TMs Normal, Normal ENT Inspection, Pharynx Normal, Moist Mucous Membranes Neck: Full Range of Motion, Normal Inspection, Non Tender, Supple, No JVD, No Lymphadenopathy (L), No Lymphadenopathy (R) Respiratory: Normal Breath Sounds, No Accessory Muscle Use, No Respiratory Distress Cardiovascular: Regular Rate, Rhythm, No Edema (RIGHT ARM WITH LYMPHEDEMA SLEEVE IN PLACE), No JVD, No Murmur, Normal Peripheral Pulses Gastrointestinal: Normal Bowel Sounds, No Organomegaly, No Pulsatile Mass, Non Tender Back: Normal Inspection, No CVA Tenderness Extremity: Normal Capillary Refill, Normal Inspection, Normal Range of Motion, Non Tender, No Calf Tenderness, No Pedal Edema Neurologic/Psychiatric: Alert, Oriented x3, No Motor/Sensory Deficits, stonemason II- XII Norm as Tested, Other (ANXIOUS) Skin: Normal Color, Warm/Dry Progress/Results/Core Measures Suspected Sepsis SIRS Temperature: Pulse: Respiratory Rate: Blood Pressure / Mean: Results/Orders Lab Results Laboratory Tests Test 02/17/17 21:00 Range/Units Urine Color YELLOW Urine Clarity CLEAR Urine pH 6 5-9 Urine Specific [place] 1.015 L 1.016-1.022 Urine Protein NEGATIVE NEGATIVE Urine Glucose (UA) NEGATIVE NEGATIVE Urine Ketones NEGATIVE NEGATIVE Urine Nitrite NEGATIVE NEGATIVE Urine Bilirubin NEGATIVE NEGATIVE Urine Urobilinogen NORMAL NORMAL MG/DL Urine Leukocyte Esterase 2+ H NEGATIVE Urine RBC (Auto) 2+ H NEGATIVE Urine RBC 0-2 /HPF Urine WBC 2-5 /HPF Urine Crystals NONE /LPF Urine Bacteria TRACE /HPF Urine Casts NONE /LPF Urine Mucus NEGATIVE /LPF Urine Culture Indicated YES Micro Results Microbiology 02/17/17 Influenza Types A,B Antigen (GERRY) - Final, Complete My Orders Orders - DANNIE BARBER DO Ua Culture If Indicated (02/17/17 20:56) Influenza A And B Antigens (02/17/17 20:56) Urine Culture (02/17/17 21:00) Rx-Nitrofurantoin [place] (Rx-Macrobid) (02/17/17 21:42) Vital Signs/I&O Vital Sign - Last 12Hours 02/17/17 21:04 Temp 100.2 Pulse 90 Resp 24 B/P (MAP) 173/72 (105) Pulse Ox 95 O2 Delivery Nasal Cannula O2 Flow Rate 2.00 Capillary Refill : Departure Impression Impression: Primary Impression: UTI (urinary tract infection) Disposition: HOME, SELF-CARE Condition: Stable Departure-Patient Inst. Referrals: EDVIN WASSERMAN MD (PCP/Family) Primary Care Physician Patient Instructions: Urinary Tract Infection, Adult (DC) Add. Discharge Instructions: TYLENOL AND MOTRIN NEEDED FOR PAIN OR FEVER LOTS OF CLEAR LIQUIDS FOLLOW UP WITH YOUR DR IN 3-4 DAYS IF NO BETTER All discharge instructions reviewed with patient and/or family. Voiced understanding. Scripts Nitrofurantoin Monohyd/M-Cryst (Macrobid 100 mg Capsule) 100 Mg Capsule 100 MG PO BID, #20 CAP Prov: DANNIE BARBER DO 02/17/17 DANNIE BARBER DO Feb 17, 2017 20:57
[2017-02-17 21:07] LABS: BILIRUBIN,URINE NEGATIVE (NEGATIVE); KETONES,URINE NEGATIVE (NEGATIVE); LEUKOCYTE ESTERASE ,URINE 2+ (NEGATIVE); NITRITE,URINE NEGATIVE (NEGATIVE); PH,URINE 6 (5-9); PROTEIN,URINE NEGATIVE (NEGATIVE); UROBILINOGEN,URINE NORMAL (NORMAL)
[2017-02-17] MEDS ORDERED: NITR-65 PO (21:41)
[2017-02-17] MEDS ORDERED: RX-NITROFURANTOIN 100 MG (MACROBID) CAP PPK#2 PO STA (21:42)
[2017-02-17 21:51] VITALS: BP 146/65
== END 2017-02-17 21:51 | disposition home or self-care (01) ==
LOC: EDUNIT# 20:44 → ER 20:45
DX: N39.0 Urinary tract infection, site not specified (principal); J44.9 Chronic obstructive pulmonary disease, unspecified; E78.00 Pure hypercholesterolemia, unspecified; I10 Essential (primary) hypertension; E03.9 Hypothyroidism, unspecified; E11.9 Type 2 diabetes mellitus without complications; F41.9 Anxiety disorder, unspecified; F32.9 Major depressive disorder, single episode, unspecified; Z85.3 Personal history of malignant neoplasm of breast; Z87.19 Personal history of other diseases of the digestive system; Z87.09 Personal history of other diseases of the respiratory system; Z79.82 Long term (current) use of aspirin; Z79.84 Long term (current) use of oral hypoglycemic drugs; Z87.891 Personal history of nicotine dependence; Z90.11 Acquired absence of right breast and nipple; Z90.710 Acquired absence of both cervix and uterus
CPT/HCPCS: 81000; 87077; 87088; 87804; 99283

== ENCOUNTER 2017-02-20 13:39 | Outpatient (RCR) | payer MEDICARE, OTHER ==
[~2017-02-20 13:39] MED LIST changes: +NITR-65 PO
== END 2017-02-20 14:47 | disposition home or self-care (01) ==
PROVIDERS: ATTEND Nurse Practitioner Adult Health
DX: I89.0 Lymphedema, not elsewhere classified (principal); C50.111 Malignant neoplasm of central portion of right female breast

== ENCOUNTER 2017-04-04 05:38 | Outpatient (CLI) | payer MEDICARE, OTHER ==
[~2017-04-04] VITALS: Ht 147.3 cm; Wt 83.9 kg
[~2017-04-04 05:38] MED LIST changes: -METF500T8; +METF500T8 PO
[2017-04-04] MEDS ORDERED: LEVO100T7 PO (10:36)
[2017-04-04] MEDS ORDERED: EZET10TA27 PO (10:36)
[2017-04-04] MEDS ORDERED: FLUT1DIS26 IH (10:36)
[2017-04-04] MEDS ORDERED: RT-ALBUINH IH (10:36)
[2017-04-04] MEDS ORDERED: ASCO500C17 PO (10:36)
[2017-04-04] MEDS ORDERED: CHOL200014 PO (10:36)
[2017-04-04] MEDS ORDERED: FURO20TA4 PO (10:36)
[2017-04-04] MEDS ORDERED: [UNRECOGNIZED DRUG - CODE] PO ×2 (10:36)
[2017-04-04] MEDS ORDERED: OXAZ15CA PO (10:36)
[2017-04-04] MEDS ORDERED: CAND1TAB16 PO (10:36)
[2017-04-04] MEDS ORDERED: FAMO20TA3 PO (10:36)
[2017-04-04] MEDS ORDERED: TIOT18CA2 IH (10:36)
[2017-04-04] MEDS ORDERED: NEBI5TAB8 PO (10:36)
[2017-04-04] MEDS ORDERED: LETR2.5T5 PO (10:36)
[2017-04-04] MEDS ORDERED: MAGN250T35 PO (10:36)
== END 2017-04-04 10:37 ==
LOC: PREOP 05:38
PROVIDERS: ATTEND Internal Medicine
DX: Z01.818 Encounter for other preprocedural examination (principal); K62.5 Hemorrhage of anus and rectum; D64.9 Anemia, unspecified

== ENCOUNTER → 2017-06-03 | Outpatient (CLI) | payer MEDICARE, OTHER ==
[~2017-06-03] MED LIST changes: +ASCO500C17 PO; +CAND1TAB16 PO; +CHOL200014 PO; +EZET10TA27 PO; +FAMO20TA3 PO; +FLUT1DIS26 IH; +LEVO100T7 PO; +MAGN250T35 PO; +RT-ALBUINH IH; +TIOT18CA2 IH; +[UNRECOGNIZED DRUG - CODE] PO
[2017-06-03 13:35] LABS: BASOPHILS % (AUTO) 0 % (0-10); EOSINOPHILS # (AUTO) 0.1 10^3/uL (0.0-0.3); EOSINOPHILS % (AUTO) 1 % (0-10); HEMATOCRIT 35 % (35-52); HEMOGLOBIN 11.6 G/DL (11.5-16.0); LYMPHOCYTES # (AUTO) 1.3 X 10^3 (1.0-4.0); LYMPHOCYTES % (AUTO) 13 % (12-44); MEAN CORPUSCULAR HEMOGLOBIN 30 PG (25-34); MEAN CORPUSCULAR HGB CONC 33 G/DL (32-36); MEAN CORPUSCULAR VOLUME 91 FL (80-99); MEAN PLATELET VOLUME 10.6 FL (7.4-10.4); MONOCYTES # (AUTO) 0.8 X 10^3 (0.0-1.0); MONOCYTES % (AUTO) 7 % (0-12); NEUTROPHILS # (AUTO) 8.1 X 10^3 (1.8-7.8); NEUTROPHILS % (AUTO) 78 % (42-75); PLATELET COUNT 334 10^3/uL (130-400); RED BLOOD COUNT 3.86 10^6/uL (4.35-5.85); RED CELL DISTRIBUTION WIDTH 14.5 % (10.0-14.5); WHITE BLOOD COUNT 10.3 10^3/uL (4.3-11.0)
[2017-06-03 13:58] LABS: ALANINE AMINOTRANSFERASE 13 U/L (0-55); ALBUMIN 4.2 GM/DL (3.2-4.5); ALKALINE PHOSPHATASE 100 U/L (40-136); BILIRUBIN,TOTAL 0.6 MG/DL (0.1-1.0); BUN/CREATININE RATIO 19; CALCIUM 8.9 MG/DL (8.5-10.1); CARBON DIOXIDE 31 MMOL/L (21-32); CHLORIDE 95 MMOL/L (98-107); CREATININE SERUM 0.77 MG/DL (0.60-1.30); GFR ESTIMATED > 60; GLUCOSE 113 MG/DL (70-105); POTASSIUM 4.2 MMOL/L (3.6-5.0); SODIUM 136 MMOL/L (135-145); TOTAL PROTEIN 6.5 GM/DL (6.4-8.2)
== END ==
LOC: ONC 13:19
PROVIDERS: ATTEND Internal Medicine Hematology & Oncology
DX: C73 Malignant neoplasm of thyroid gland (principal); C50.111 Malignant neoplasm of central portion of right female breast; I89.0 Lymphedema, not elsewhere classified; M85.88 Other specified disorders of bone density and structure, other site; I12.9 Hypertensive chronic kidney disease with stage 1 through stage 4 chronic kidney disease, or unspecified chronic kidney disease; N18.3 Chronic kidney disease, stage 3 (moderate); J44.9 Chronic obstructive pulmonary disease, unspecified; E78.00 Pure hypercholesterolemia, unspecified; F32.9 Major depressive disorder, single episode, unspecified; Z17.0 Estrogen receptor positive status [ER+]; Z78.0 Asymptomatic menopausal state; Z87.891 Personal history of nicotine dependence; Z79.811 Long term (current) use of aromatase inhibitors; Z79.899 Other long term (current) drug therapy
CPT/HCPCS: 36415; 80053; 84432; 84443; 85025; 99213

== ENCOUNTER → 2017-11-27 | Outpatient (CLI) | payer MEDICARE, OTHER ==
[~2017-11-27] MED LIST changes: -CHOL200014 PO; +CHOL200085 PO; +OXAZ10CA PO; +OXAZ15CA3 PO; -[UNRECOGNIZED DRUG - CODE] PO
--- NOTE | 2017-11-27 14:16 | Diagnostic Imaging Report ---
EXAM: DEXA scan INDICATION: Screening for osteoporosis COMPARISON: This study was compared to the prior exam of 11/23/2015. FINDINGS: The bone mineral density of the hips and spine was measured. The T score for the spine is 0.0. On the prior exam, the T score is -0.2. The T score for the left hip is -0.5 and for the right hip -1.4. On the prior exam, the respective T. scores were -0.4 and -1.4. IMPRESSION: When compared to the previous study, there does not appear to have been any significant change. The bone mineral density in the spine and the left hip is still within normal limits while there is osteopenia of the right hip. Dictated by: Dictated on workstation # [id number]
--- NOTE | 2017-12-01 12:31 | Diagnostic Imaging Report ---
Bilateral mammograms Indication: Screening. Comparison made with prior examination of 11/25/2016 back through 01/16/2011 The current study was also evaluated with a Computer Aided Detection (CAD) system. 3-D tomosynthesis was also performed and reviewed. Findings: There are scattered fibroglandular densities bilaterally. There are numerous benign-type calcifications scattered throughout both breasts. There is no new dominant mass, spiculated lesion or suspicious calcification identified. Skin, nipples and axilla are unremarkable. Impression: Category 2 benign. ACR BI-RADS Category 2: Benign findings. Result letter will be mailed to the patient. Note: At least 10% of breast cancer is not imaged by mammography. Dictated by: Dictated on workstation # [id number]
== END ==
LOC: RAD 10:42
PROVIDERS: ATTEND Internal Medicine Hematology & Oncology
DX: Z12.31 Encounter for screening mammogram for malignant neoplasm of breast (principal); Z13.820 Encounter for screening for osteoporosis; M85.88 Other specified disorders of bone density and structure, other site; C50.111 Malignant neoplasm of central portion of right female breast
CPT/HCPCS: 77067; 77080

== ENCOUNTER 2017-12-10 11:26 | Outpatient (RCR) | payer MEDICARE, OTHER | END 2017-12-10 16:09 | disposition home or self-care (01) | PROVIDERS: ATTEND Nurse Practitioner Adult Health | DX: I89.0 Lymphedema, not elsewhere classified (principal); Z85.3 Personal history of malignant neoplasm of breast ==

== ENCOUNTER 2017-12-18 10:59 | Outpatient (RCR) | payer MEDICARE, OTHER ==
[2017-12-18 10:44] LABS: BASOPHILS # (AUTO) 0.1 10^3/uL (0.0-0.1); BASOPHILS % (AUTO) 1 % (0-10); EOSINOPHILS # (AUTO) 0.1 10^3/uL (0.0-0.3); EOSINOPHILS % (AUTO) 2 % (0-10); HEMATOCRIT 36 % (35-52); HEMOGLOBIN 12.1 G/DL (11.5-16.0); LYMPHOCYTES % (AUTO) 12 % (12-44); MEAN CORPUSCULAR HEMOGLOBIN 30 PG (25-34); MEAN CORPUSCULAR HGB CONC 33 G/DL (32-36); MEAN CORPUSCULAR VOLUME 92 FL (80-99); MEAN PLATELET VOLUME 10.7 FL (7.4-10.4); MONOCYTES # (AUTO) 0.5 X 10^3 (0.0-1.0); MONOCYTES % (AUTO) 6 % (0-12); NEUTROPHILS # (AUTO) 6.6 X 10^3 (1.8-7.8); NEUTROPHILS % (AUTO) 79 % (42-75); PLATELET COUNT 316 10^3/uL (130-400); RED BLOOD COUNT 3.97 10^6/uL (4.35-5.85); RED CELL DISTRIBUTION WIDTH 13.6 % (10.0-14.5); WHITE BLOOD COUNT 8.3 10^3/uL (4.3-11.0)
[2017-12-18 10:57] LABS: ALANINE AMINOTRANSFERASE 15 U/L (0-55); ALBUMIN 4.1 GM/DL (3.2-4.5); ALKALINE PHOSPHATASE 93 U/L (40-136); BILIRUBIN,TOTAL 0.9 MG/DL (0.1-1.0); BUN/CREATININE RATIO 18; CALCIUM 9.1 MG/DL (8.5-10.1); CARBON DIOXIDE 25 MMOL/L (21-32); CHLORIDE 98 MMOL/L (98-107); CREATININE SERUM 0.76 MG/DL (0.60-1.30); GFR ESTIMATED > 60; GLUCOSE 103 MG/DL (70-105); POTASSIUM 4.1 MMOL/L (3.6-5.0); SODIUM 134 MMOL/L (135-145); TOTAL PROTEIN 6.5 GM/DL (6.4-8.2)
== END 2018-03-18 | disposition home or self-care (01) ==
LOC: ONC 10:59
PROVIDERS: ATTEND Internal Medicine Hematology & Oncology
DX: C73 Malignant neoplasm of thyroid gland (principal); C50.111 Malignant neoplasm of central portion of right female breast; I89.0 Lymphedema, not elsewhere classified; M85.88 Other specified disorders of bone density and structure, other site; I12.9 Hypertensive chronic kidney disease with stage 1 through stage 4 chronic kidney disease, or unspecified chronic kidney disease; J44.9 Chronic obstructive pulmonary disease, unspecified; E78.00 Pure hypercholesterolemia, unspecified; F32.9 Major depressive disorder, single episode, unspecified; Z17.0 Estrogen receptor positive status [ER+]; Z78.0 Asymptomatic menopausal state; Z87.891 Personal history of nicotine dependence; Z79.811 Long term (current) use of aromatase inhibitors; Z79.899 Other long term (current) drug therapy
CPT/HCPCS: 36415; 80053; 84432; 84443; 85025; 86800; 99213

== ENCOUNTER 2018-04-17 13:16 | Emergency (ER) | payer MEDICARE, OTHER ==
[~2018-04-17] VITALS: Ht 149.9 cm; Wt 79.8 kg
[~2018-04-17 13:16] MED LIST changes: +CHOL200014 PO; -CHOL200085 PO
--- NOTE | 2018-04-17 13:45 | NUR ---
PT AT THE DOOR WANTING TO LEAVE. NOTIFIED HER SHE NEEDED PAPERWORK FIRST AND ASKED HER TO GO BACK TO HER ROOM. PT REMAINS SITTING AT THE REGISTRAION DESK
--- NOTE | 2018-04-17 13:47 | ED Integumentary General ---
General Chief Complaint: Skin/Wound Problems Stated Complaint: BACK WOUND Nursing Triage Note: COMPLAINS OF A WOUND ON HER BACK THAT REAPPEARED THIS WEEK. STATES IT HAS HAPPENED BEFORE. Source: patient Exam Limitations: other History of Present Illness Date Seen by Provider: Apr 17, 2018 Time Seen by Provider: 13:42 Initial Comments 78-year-old female who presents to the emergency room with complaints of an open wound on her back that reappeared this week and opened and drained. She states that she's had this happen before. Allergies and Home Medications Allergies Coded Allergies: Sulfa (Sulfonamide Antibiotics) (Unverified Allergy, Mild, HIVES, 04/21/05) codeine (Unverified Allergy, Mild, NAUSEA, 04/21/05) atorvastatin (Verified Allergy, Unknown, 04/21/05) cephalexin (Unverified Allergy, Unknown, PT HAS REC ROCEPHIN,CEFTIN & AUGMENTIN IN PAST, 12/19/11) PER DR. WASSERMAN'S OFFICE PT HAS RECEIVED ROCEPHIN, CEFTIN, AND AUGMENTIN IN PAST WITHOUT PROBLEMS doxycycline (Verified Allergy, Unknown, 04/21/05) gatifloxacin (Verified Allergy, Unknown, 04/21/05) grepafloxacin (Verified Allergy, Unknown, 04/21/05) indapamide (Unverified Allergy, Unknown, 11/21/14) penbutolol (Verified Allergy, Unknown, 04/21/05) sulfamethoxazole (Verified Allergy, Unknown, 04/21/05) trimethoprim (Verified Allergy, Unknown, 04/21/05) Home Medications Albuterol Sulfate 1 Puff Puff, 2 PUFF IH Q4H PRN for SHORTNESS OF BREATH, ( Reported) 1 PUFF = 90 MCG Ascorbic Acid 500 Mg Capsule, 500 MG PO DAILY, (Reported) Candesartan/Hydrochlorothiazid 1 Each Tablet, 1 EACH PO DAILY, (Reported) Cholecalciferol (Vitamin D3) 2,000 Unit Tablet, 2,000 UNIT PO DAILY, (Reported) Ezetimibe 10 Mg Tablet, 10 MG PO DAILY, (Reported) Famotidine 20 Mg Tablet, 20 MG PO BID, (Reported) Fluticasone/Salmeterol 1 Each Blst.w.dev, 1 EACH IH BID, (Reported) Furosemide 20 Mg Tablet, 20 MG PO DAILY, (Reported) Letrozole 2.5 Mg Tablet, 2.5 MG PO DAILY, (Reported) Levothyroxine Sodium 100 Mcg Tablet, 100 MCG PO DAILY, (Reported) Magnesium Oxide 250 Mg Tablet, 250 MG PO DAILY, (Reported) Metformin HCl 500 Mg Tab.er.24h, 1,000 MG PO DAILY, (Reported) take 2 (500mg) tabs Nebivolol HCl 5 Mg Tablet, 5 MG PO DAILY, (Reported) Oxazepam 15 Mg Capsule, 15 MG PO DAILY, (Reported) take with 10mg tab for 25mg total Oxazepam 10 Mg Cap, 10 MG PO BID, (Reported) takes with 15mg tab in am for 25mg total take only 1 (10mg) tab at hs Oxazepam 10 Mg Cap, 20 MG PO DAILY@1200,1700, (Reported) take 2 (10mg) tabs Tiotropium [place] 1 Inh Aerp, 1 INH IH DAILY, (Reported) Past Ryrculi-Prbnck-Dhnzte Hx Patient Social History Alcohol Use: Denies Use Recreational Drug Use: No Smoking Status: Former Smoker Type Used: Cigarettes Former Smoker, Quit: Mar 10, 2004 Recent Foreign Travel: No Contact w/Someone Who Travel: No Recent Infectious Disease Expo: No Recent Hopitalizations: No Immunizations Up To Date Tetanus Booster (TDap): Less than 5yrs Date of Pneumonia Vaccine: Dec 18, 2007 Date of Influenza Vaccine: Dec 12, 2016 Seasonal Allergies Seasonal Allergies: No Past Medical History Surgeries: Yes (D AND C'S, RIGHT HAND SX, LASER EYE SURGERY ) Appendectomy, Breast, Eye Surgery, Hysterectomy, Oophorectomy, Orthopedic, Thyroidectomy, Tonsillectomy Respiratory: Yes (HOME O2 AT 2L/NC) Chronic Bronchitis, COPD Cardiac: Yes (HOME O2 AT 2L/NC) High Cholesterol, Hypertension Neurological: No 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 Genitourinary: No Gastrointestinal: Yes (GALLSTONES-NO SURGERY) Chronic Constipation, Hemorrhoids, Gall Bladder Disease Musculoskeletal: Yes (ARTHRITIS; LYMPHEDEMA RIGHT ARM-S/P RIGHT lumpectomy) Arthritis Endocrine: Yes ( THYROID CANCER--S/P SURGERY) Hypothyroidsim, Diabetes, Non-Insulin dep HEENT: Yes Cataract Cancer: Yes Breast, Thyroid Did You Recieve Any Treatments: Yes What Type of Treatment Did You: Radiation, Surgical Intervention Psychosocial: Yes Anxiety, Depression Integumentary: Yes Psoriasis Blood Disorders: Yes (anemia) Physical Exam Vital Signs Vital Signs - First Documented 04/17/18 13:23 Temp 96.8 Pulse 67 Resp 16 B/P (MAP) 160/62 (94) Pulse Ox 97 O2 Delivery Room Air Capillary Refill : Less Than 3 Seconds Progress/Results/Core Measures Results/Orders My Orders Orders - SAMSON MULLINS Wound Culture (04/17/18 13:41) Vital Signs/I&O 04/17/18 13:23 Temp 96.8 Pulse 67 Resp 16 B/P (MAP) 160/62 (94) Pulse Ox 97 O2 Delivery Room Air Blood Pressure Mean: 94 Departure Impression Primary Impression: Infected sebaceous cyst Disposition: HOME, SELF-CARE Condition: Stable/Unchanged Departure-Patient Inst. Decision time for Depature: 13:43 Referrals: SERGIO SWANSON (PCP) Primary Care Physician Patient Instructions: SEBACEOUS CYST-I&D Add. Discharge Instructions: Take antibiotics as directed. Follow-up with Dr. Wasserman within 1 week for recheck. Return back to the emergency room for worsening symptoms or concerns as needed. All discharge instructions reviewed with patient and/or family. Voiced understanding. Scripts Clindamycin HCl (Clindamycin HCl) 300 Mg Capsule 300 MG PO Q6H for 7 Days, #28 CAP Prov: SAMSON MULLINS 04/17/18 SAMSON MULLINS Apr 17, 2018 13:47
--- NOTE | 2018-04-17 14:06 | NUR ---
PT STATES SHE HAS BEEN HERE A LONG TIME AND WANTS TO KNOW WHAT IS TAKING SO LONG. NOTIFIED HER AGAIN THAT SAMSON IS IN ANOTHER ROOM TAKING CARE OF OTHER PATIENTS AND HE WOULD GET HER PAPERWORK SOON HE COULD. NOTIFIED PT SHE HAS BEEN HERE A HOUR. PT SHAKING HER HEAD "NO".
[2018-04-17] MEDS ORDERED: CLIN300C11 PO (14:09)
[2018-04-17 14:14] VITALS: BP 160/62
== END 2018-04-17 14:14 | disposition home or self-care (01) ==
LOC: EDUNIT# 13:16 → ER 13:17
DX: L72.3 Sebaceous cyst (principal); J44.9 Chronic obstructive pulmonary disease, unspecified; E78.00 Pure hypercholesterolemia, unspecified; I10 Essential (primary) hypertension; E03.9 Hypothyroidism, unspecified; F41.9 Anxiety disorder, unspecified; F32.9 Major depressive disorder, single episode, unspecified; D64.9 Anemia, unspecified; E11.9 Type 2 diabetes mellitus without complications; Z85.3 Personal history of malignant neoplasm of breast; Z85.850 Personal history of malignant neoplasm of thyroid; Z90.11 Acquired absence of right breast and nipple; Z87.19 Personal history of other diseases of the digestive system; Z99.81 Dependence on supplemental oxygen; Z88.2 Allergy status to sulfonamides; Z88.5 Allergy status to narcotic agent; Z88.1 Allergy status to other antibiotic agents; Z88.8 Allergy status to other drugs, medicaments and biological substances; Z79.51 Long term (current) use of inhaled steroids; Z79.84 Long term (current) use of oral hypoglycemic drugs; Z87.891 Personal history of nicotine dependence; Z98.890 Other specified postprocedural states; Z90.49 Acquired absence of other specified parts of digestive tract; Z90.89 Acquired absence of other organs; Z90.710 Acquired absence of both cervix and uterus
CPT/HCPCS: 87070; 87077; 87205; 99282

== ENCOUNTER 2018-06-17 13:43 | Outpatient (RCR) | payer MEDICARE, OTHER ==
[~2018-06-17 13:43] MED LIST changes: +CLIN300C11 PO; -EZET10TA27 PO; +EZET10TA49 PO
[2018-06-17 13:58] LABS: BASOPHILS % (AUTO) 0 % (0-10); EOSINOPHILS # (AUTO) 0.2 10^3/uL (0.0-0.3); EOSINOPHILS % (AUTO) 2 % (0-10); HEMATOCRIT 37 % (35-52); HEMOGLOBIN 12.4 G/DL (11.5-16.0); LYMPHOCYTES # (AUTO) 1.2 X 10^3 (1.0-4.0); LYMPHOCYTES % (AUTO) 12 % (12-44); MEAN CORPUSCULAR HEMOGLOBIN 32 PG (25-34); MEAN CORPUSCULAR HGB CONC 33 G/DL (32-36); MEAN CORPUSCULAR VOLUME 95 FL (80-99); MEAN PLATELET VOLUME 10.6 FL (7.4-10.4); MONOCYTES # (AUTO) 0.7 X 10^3 (0.0-1.0); MONOCYTES % (AUTO) 8 % (0-12); NEUTROPHILS # (AUTO) 7.5 X 10^3 (1.8-7.8); NEUTROPHILS % (AUTO) 78 % (42-75); PLATELET COUNT 307 10^3/uL (130-400); RED CELL DISTRIBUTION WIDTH 13.5 % (10.0-14.5); WHITE BLOOD COUNT 9.7 10^3/uL (4.3-11.0)
[2018-06-17 14:18] LABS: ALANINE AMINOTRANSFERASE 19 U/L (0-55); ALBUMIN 4.2 GM/DL (3.2-4.5); ALKALINE PHOSPHATASE 93 U/L (40-136); BILIRUBIN,TOTAL 0.6 MG/DL (0.1-1.0); BUN/CREATININE RATIO 26; CALCIUM 9.2 MG/DL (8.5-10.1); CARBON DIOXIDE 27 MMOL/L (21-32); CHLORIDE 100 MMOL/L (98-107); CREATININE SERUM 0.74 MG/DL (0.60-1.30); GFR ESTIMATED > 60; GLUCOSE 102 MG/DL (70-105); POTASSIUM 4.1 MMOL/L (3.6-5.0); SODIUM 138 MMOL/L (135-145); TOTAL PROTEIN 6.6 GM/DL (6.4-8.2)
[2018-06-17] MEDS ORDERED: DENOSUMAB 60 MG/1 ML (PROLIA) CANCER CTR SQ SCH (14:45)
== END 2018-09-15 | disposition home or self-care (01) ==
LOC: ONC 13:43
PROVIDERS: ATTEND Internal Medicine Hematology & Oncology
DX: C73 Malignant neoplasm of thyroid gland (principal); C50.111 Malignant neoplasm of central portion of right female breast; I89.0 Lymphedema, not elsewhere classified; M85.88 Other specified disorders of bone density and structure, other site; I12.9 Hypertensive chronic kidney disease with stage 1 through stage 4 chronic kidney disease, or unspecified chronic kidney disease; J44.9 Chronic obstructive pulmonary disease, unspecified; E78.00 Pure hypercholesterolemia, unspecified; F32.9 Major depressive disorder, single episode, unspecified; Z17.0 Estrogen receptor positive status [ER+]; Z78.0 Asymptomatic menopausal state; Z87.891 Personal history of nicotine dependence; Z79.811 Long term (current) use of aromatase inhibitors; Z79.899 Other long term (current) drug therapy
CPT/HCPCS: 36415; 80053; 84432; 84443; 85025; 86800; 96372

== ENCOUNTER → 2018-11-30 | Outpatient (CLI) | payer MEDICARE, OTHER ==
--- NOTE | 2018-11-30 19:10 | Diagnostic Imaging Report ---
INDICATION: Routine screening. COMPARISON: Comparison is made with prior mammograms from 11/27/2017 and 11/25/2016. TECHNIQUE: 2-D and 3-D bilateral screening mammography was performed. The current study was also evaluated with a Computer Aided Detection (CAD) system. 3-D tomosynthesis was also performed and reviewed. FINDINGS: Scattered fibroglandular densities are identified bilaterally. Scattered benign calcifications are again noted throughout both breasts. Area of asymmetric density in the lateral aspect of the left breast is stable. No new mass or malignant-appearing microcalcifications are seen. The axillae are unremarkable. IMPRESSION: No mammographic features suspicious for malignancy are identified. ACR BI-RADS Category 2: Benign findings. Result letter will be mailed to the patient. Note: At least 10% of breast cancer is not imaged by mammography. Dictated by: Dictated on workstation # [id number]
== END ==
LOC: RAD 13:27
PROVIDERS: ATTEND Nurse Practitioner Adult Health
DX: Z12.31 Encounter for screening mammogram for malignant neoplasm of breast (principal); Z85.3 Personal history of malignant neoplasm of breast
CPT/HCPCS: 77067

== ENCOUNTER 2018-12-18 12:50 | Emergency (ER) | payer MEDICARE, OTHER ==
[~2018-12-18] VITALS: Ht 149 cm; Wt 79.0 kg
--- NOTE | 2018-12-18 13:19 | ED Neurological Problem ---
General Chief Complaint: Altered Mental Status Stated Complaint: TROUBLE WITH MEMORY Source: patient Exam Limitations: no limitations (DL GALLARDO STUDENT) History of Present Illness Date Seen by Provider: Dec 18, 2018 Time Seen by Provider: 13:00 Initial Comments Patient reports to the ED today with complaints of worsening memory over 6 months and is worse today than it ever has been in the past. The patient was a poor historian and wasn't able to explain the memory loss and instead just kept repeating "my mind is gone." She was however alert to person, place and time. She states nothing makes her memory issues better and nothing makes it worse. Patient has a history of HTN, DM Type 2 and hyperlipidemia, so she is at risk for stroke; stroke workup will be executed. She has not received any recent head trauma and was able to drive herself to the ED. Patient also states she has been having problems having bowel movements and dysuria. Location Injury Occurred: Began noticing symptoms at home Timing/Duration: other (6 months) Severity: moderate Associated Symptoms: confusion, other (memory loss) (DL GALLARDO STUDENT) Timing/Duration: other (6 months) Severity: moderate Associated Symptoms: confusion, fatigue; No fever/chills (KATE MO MD) Allergies and Home Medications Allergies Coded Allergies: Sulfa (Sulfonamide Antibiotics) (Unverified Allergy, Mild, HIVES, 04/21/05) codeine (Unverified Allergy, Mild, NAUSEA, 04/21/05) atorvastatin (Verified Allergy, Unknown, 04/21/05) cephalexin (Unverified Allergy, Unknown, PT HAS REC ROCEPHIN,CEFTIN & AUGMENTIN IN PAST, 12/19/11) PER DR. MAHARAJ'S OFFICE PT HAS RECEIVED ROCEPHIN, CEFTIN, AND AUGMENTIN IN PAST WITHOUT PROBLEMS doxycycline (Verified Allergy, Unknown, 04/21/05) gatifloxacin (Verified Allergy, Unknown, 04/21/05) grepafloxacin (Verified Allergy, Unknown, 04/21/05) indapamide (Unverified Allergy, Unknown, 11/21/14) penbutolol (Verified Allergy, Unknown, 04/21/05) sulfamethoxazole (Verified Allergy, Unknown, 04/21/05) trimethoprim (Verified Allergy, Unknown, 04/21/05) Home Medications Albuterol Sulfate 1 Puff Puff, 2 PUFF IH Q4H PRN for SHORTNESS OF BREATH, (Rep orted) 1 PUFF = 90 MCG Ascorbic Acid 500 Mg Capsule, 500 MG PO DAILY, (Reported) Candesartan/Hydrochlorothiazid 1 Each Tablet, 1 EACH PO DAILY, (Reported) Cholecalciferol (Vitamin D3) 2,000 Unit Tablet, 2,000 UNIT PO DAILY, (Reported) Clindamycin HCl 300 Mg Capsule, 300 MG PO Q6H Prescribed by: SAMSON MULLINS on 04/17/18 1409 Ezetimibe 10 Mg Tablet, 10 MG PO DAILY, (Reported) Famotidine 20 Mg Tablet, 20 MG PO BID, (Reported) Fluticasone/Salmeterol 1 Each Blst.w.dev, 1 EACH IH BID, (Reported) Furosemide 20 Mg Tablet, 20 MG PO DAILY, (Reported) Letrozole 2.5 Mg Tablet, 2.5 MG PO DAILY, (Reported) Levothyroxine Sodium 100 Mcg Tablet, 100 MCG PO DAILY, (Reported) Magnesium Oxide 250 Mg Tablet, 250 MG PO DAILY, (Reported) Metformin HCl 500 Mg Tab.er.24h, 1,000 MG PO DAILY, (Reported) take 2 (500mg) tabs Nebivolol HCl 5 Mg Tablet, 5 MG PO DAILY, (Reported) Oxazepam 15 Mg Capsule, 15 MG PO DAILY, (Reported) take with 10mg tab for 25mg total Oxazepam 10 Mg Cap, 10 MG PO BID, (Reported) takes with 15mg tab in am for 25mg total take only 1 (10mg) tab at hs Oxazepam 10 Mg Cap, 20 MG PO DAILY@1200,1700, (Reported) take 2 (10mg) tabs Tiotropium [place] 1 Inh Aerp, 1 INH IH DAILY, (Reported) Patient Home Medication List Home Medication List Reviewed: Yes (KATE MO MD) Review of Systems Review of Systems Constitutional: no symptoms reported Eyes: No Symptoms Reported Ears, Nose, Mouth, Throat: no symptoms reported Respiratory: no symptoms reported Cardiovascular: no symptoms reported Gastrointestinal: constipation Genitourinary: dysuria : No Musculoskeletal: no symptoms reported Skin: no symptoms reported Endocrine: See HPI Hematologic/Lymphatic: No Symptoms Reported (DL GALLARDO PA STUDENT) All Other Systems Reviewed Negative Unless Noted: Yes (KATE MO MD) Past Ephlswf-Ldoprv-Dkablo Hx Past Med/Social Hx: Reviewed Nursing Past Med/Soc Hx (KATE MO MD) Patient Social History Alcohol Use: Denies Use Recreational Drug Use: No (VALIUM) Smoking Status: Former Smoker Type Used: Cigarettes Former Smoker, Quit: Mar 10, 2004 2nd Hand Smoke Exposure: No Recent Foreign Travel: No Contact w/Someone Who Travel: No Recent Hopitalizations: No (DL GALLARDO STUDENT) Immunizations Up To Date Tetanus Booster (TDap): Less than 5yrs Date of Pneumonia Vaccine: Dec 18, 2007 Date of Influenza Vaccine: Dec 12, 2016 (DL GALLARDO) Seasonal Allergies Seasonal Allergies: No (DL GALLARDO) Past Medical History Surgeries: Yes (D AND C'S, RIGHT HAND SX, LASER EYE SURGERY ) Appendectomy, Breast, Eye Surgery, Hysterectomy, Oophorectomy, Orthopedic, Thyroidectomy, Tonsillectomy Respiratory: Yes (HOME O2 AT 2L/NC) Chronic Bronchitis, COPD Cardiac: Yes (HOME O2 AT 2L/NC) High Cholesterol, Hypertension Neurological: No : No 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 Genitourinary: No Gastrointestinal: Yes (GALLSTONES-NO SURGERY) Chronic Constipation, Hemorrhoids, Gall Bladder Disease Musculoskeletal: Yes (ARTHRITIS; LYMPHEDEMA RIGHT ARM-S/P RIGHT lumpectomy) Arthritis Endocrine: Yes ( THYROID CANCER--S/P SURGERY) Hypothyroidsim, Diabetes, Non-Insulin dep HEENT: Yes Cataract Cancer: Yes Breast, Thyroid Did You Recieve Any Treatments: Yes What Type of Treatment Did You: Radiation, Surgical Intervention Psychosocial: Yes Anxiety, Depression Integumentary: Yes Psoriasis Blood Disorders: Yes (anemia) (DL GALLARDO STUDENT) Family Medical History Reviewed Nursing Family Hx (KATE MO MD) Physical Exam Vital Signs Vital Signs - First Documented 12/18/18 12/18/18 12:58 14:28 Temp 36.4 Pulse 79 Resp 20 B/P (MAP) 191/71 (111) Pulse Ox 95 O2 Delivery Room Air (KATE MO MD) Vital Signs Capillary Refill : (DL GALLARDO STUDENT) Height, Weight, BMI Height: 4'11.00" Weight: 176lbs. 0.0oz. 79.785122hl; 38.7 BMI Method:Stated General Appearance: no apparent distress HEENT: PERRL/EOMI, normal ENT inspection, pharynx normal Neck: non-tender, full range of motion, supple, normal inspection Respiratory: chest non-tender, lungs clear, normal breath sounds, no respiratory distress, no accessory muscle use Cardiovascular: regular rate, rhythm, no edema, no gallop, no JVD, no murmur Peripheral Pulses: 2+ Dorsalis Pedis (R), 2+ Left Dors-Pedis (L), 2+ Radial Pulses (R), 2+ Radial Pulses (L) Gastrointestinal: normal bowel sounds, non tender, soft, no organomegaly, no pulsatile mass Neurologic/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: 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, no motor/sensory deficits, alert, normal mood/affect, oriented x 3 Crainal Nerves: normal hearing, normal speech, PERRL Coordination/Gait: normal finger to nose Motor/Sensory: no motor deficit, no sensory deficit Lymphatic: no adenopathy (DL GALLARDO PA STUDENT) General Appearance: WD/WN, no apparent distress HEENT: PERRL/EOMI, pharynx normal Neck: full range of motion, supple Respiratory: lungs clear, normal breath sounds Cardiovascular: regular rate, rhythm, no murmur Gastrointestinal: non tender, soft Back: normal inspection, no CVA tenderness, no vertebral tenderness Neurologic/Psychiatric: alert Crainal Nerves: normal speech, PERRL Coordination/Gait: normal finger to nose Motor/Sensory: no motor deficit, no sensory deficit Skin: normal color, warm/dry (KATE MO MD) Progress/Results/Core Measures Results/Orders Lab Results Laboratory Tests Test 12/18/18 13:15 12/18/18 13:32 12/18/18 13:48 12/18/18 14:04 Range/Units White Blood Count 9.8 4.3-11.0 10^3/uL Red Blood Count 4.07 L 4.35-5.85 10^6/uL Hemoglobin 12.9 11.5-16.0 G/DL Hematocrit 39 35-52 % Mean Corpuscular Volume 95 80-99 FL Mean Corpuscular Hemoglobin 32 25-34 PG Mean Corpuscular Hemoglobin Concent 33 32-36 G/DL Red Cell Distribution Width 13.0 10.0-14.5 % Platelet Count 262 130-400 10^3/uL Mean Platelet Volume 11.8 H 7.4-10.4 FL Neutrophils (%) (Auto) 81 H 42-75 % Lymphocytes (%) (Auto) 11 L 12-44 % Monocytes (%) (Auto) 6 0-12 % Eosinophils (%) (Auto) 2 0-10 % Basophils (%) (Auto) 1 0-10 % Neutrophils # (Auto) 7.9 H 1.8-7.8 X 10^3 Lymphocytes # (Auto) 1.0 1.0-4.0 X 10^3 Monocytes # (Auto) 0.6 0.0-1.0 X 10^3 Eosinophils # (Auto) 0.2 0.0-0.3 10^3/uL Basophils # (Auto) 0.1 0.0-0.1 10^3/uL Sodium Level 138 135-145 MMOL/L Potassium Level 4.3 3.6-5.0 MMOL/L Chloride Level 100 98-107 MMOL/L Carbon Dioxide Level 27 21-32 MMOL/L Anion Gap 11 5-14 MMOL/L Blood Urea Nitrogen 16 7-18 MG/DL Creatinine 0.73 0.60-1.30 MG/DL Estimat Glomerular Filtration Rate > 60 BUN/Creatinine Ratio 22 Glucose Level 152 H 70-105 MG/DL Calcium Level 8.8 8.5-10.1 MG/DL Corrected Calcium 8.6 8.5-10.1 MG/DL Total Bilirubin 0.6 0.1-1.0 MG/DL Aspartate Amino Transf (AST/SGOT) 25 5-34 U/L Alanine Aminotransferase (ALT/SGPT) 20 0-55 U/L Alkaline Phosphatase 98 40-136 U/L Troponin I < 0.028 <0.028 NG/ML Total Protein 7.0 6.4-8.2 GM/DL Albumin 4.2 3.2-4.5 GM/DL Urine Color YELLOW Urine Clarity CLEAR Urine pH 6 5-9 Urine Specific [place] 1.015 L 1.016-1.022 Urine Protein 1+ H NEGATIVE Urine Glucose (UA) NEGATIVE NEGATIVE Urine Ketones NEGATIVE NEGATIVE Urine Nitrite NEGATIVE NEGATIVE Urine Bilirubin NEGATIVE NEGATIVE Urine Urobilinogen NORMAL NORMAL MG/DL Urine Leukocyte Esterase 2+ H NEGATIVE Urine RBC (Auto) NEGATIVE NEGATIVE Urine RBC 0-2 /HPF Urine WBC 0-2 /HPF Urine Crystals NONE /LPF Urine Bacteria NEGATIVE /HPF Urine Casts NONE /LPF Urine Mucus NEGATIVE /LPF Urine Culture Indicated NO Glucometer 154 H 70-110 MG/DL Prothrombin Time 12.7 12.2-14.7 SEC INR Comment 0.9 0.8-1.4 Activated Partial Thromboplast Time 26 24-35 SEC D-Dimer 0.53 H 0.00-0.49 UG/ML (KATE OM MD) My Orders Orders - KATE MO MD Cbc With Automated Diff (12/18/18 13:16) Protime With Inr (12/18/18 13:16) Partial Thromboplastin Time (12/18/18 13:16) Comprehensive Metabolic Panel (12/18/18 13:16) Fibrin Degradation Products (12/18/18 13:16) Troponin I (12/18/18 13:16) Ua Culture If Indicated (12/18/18 13:16) Chest 1 View, Ap/Pa Only (12/18/18 13:16) Ekg Tracing (12/18/18 13:16) Nothing By Mouth (12/18/18 Dinner) Accucheck Stat ONCE (12/18/18 13:16) Ed Iv/Invasive Line Start (12/18/18 13:16) Vital Signs Stroke Patient Q15M (12/18/18 13:16) Ct Head Wo-R/O Stroke (12/18/18 13:16) O2 (12/18/18 13:16) Intake & Output 06,14,22 (12/18/18 13:16) Monitor-Rhythm Ecg Trace Only (12/18/18 13:16) Dysphagia Screening Tool (12/18/18 13:16) Lipid Panel (12/19/18 06:00) Ed Iv/Invasive Line Start (12/18/18 13:50) Ns Iv 500 Ml (Sodium Chloride 0.9%) (12/18/18 13:50) (KATE MO MD) Medications Given in ED Current Medications Medications Dose Ordered Sig/Wili Route Start Time Stop Time Status Last Admin Dose Admin Sodium Chloride 500 ml @ 0 mls/hr Q0M ONCE IV 12/18/18 13:50 12/18/18 13:51 DC 12/18/18 14:05 0 MLS/HR (KATE MO MD) Vital Signs/I&O 12/18/18 12/18/18 12:58 14:28 Temp 36.4 Pulse 79 Resp 20 B/P (MAP) 191/71 (111) Pulse Ox 95 95 O2 Delivery Room Air (KATE MO MD) Progress Progress Note : Progress Note I have seen and evaluated the patient and agree with above except as indicated. Have directed the plan of care. Patient presents because she is concerned that her memory is getting worse over the last 6 months. She has seen Dr. Maharaj earlier this week and they are going to do an MRI. She became more acutely concerned today and presented to the ER. She was able to drive herself here. She is able answer questions and follow commands. She does have decreased rate of speech but is answering questions appropriately. Stroke scale is 0. We will go ahead and do stroke protocol initiation. Monitor patient. 1515: No acute findings. Patient is remained stable to improved throughout the ED stay. She did receive normal saline 500 mL bolus. I did try to make contact with her primary care provider but was unable to get a hold him. I will send a copy of the chart to Dr. Maharaj. All the findings concerns were discussed with the patient. Discharged home with return precautions. Patient verbalize understanding instruc tions and agreement with plan. (KATE MO MD) Diagnostic Imaging Diagonstic Imaging: Xray Plain Films/CT/US/NM/MRI: chest Comments [facility], [place] NAME: HERMES [facility]A [facility] REC#: [id number] PT STATUS: REG ER : 1940 PHYSICIAN: KATE MO MD ADMIT DATE: 12/18/18/ER Draft Date of Exam:12/18/18 CHEST 1 VIEW, AP/PA ONLY PATIENT HISTORY: Altered mental status, memory loss. TECHNIQUE: Frontal view of the chest. COMPARISON: 09/25/2016. FINDINGS: Lung volumes are mildly large. There is mild cardiomegaly. Haziness in the lung bases is thought to be due to overlying soft tissue. No significant pleural effusion or pneumothorax is seen. There is aortic atherosclerosis. IMPRESSION: Large lung volumes and mild cardiomegaly with no acute pulmonary abnormality seen. Dictated on workstation # [id number] Dict: 12/18/18 1430 Trans: 12/18/18 1432 [id number] Interpreted by: LUTHER RIVERA MD Electronically signed by: Diagonstic Imaging: CT Plain Films/CT/US/NM/MRI: head Comments [facility], [place] NAME: HERMES ECHEVERRIA [facility] REC#: [id number] PT STATUS: REG ER : 1940 PHYSICIAN: KATE MO MD ADMIT DATE: 12/18/18/ER Draft Date of Exam:12/18/18 CT HEAD WO-R/O STROKE PROCEDURE: CT head wo r/o stroke. TECHNIQUE: Multiple contiguous axial images were obtained through the brain without the use of intravenous contrast. Auto Exposure Controls were utilized during the CT exam to meet ALARA standards for radiation dose reduction. INDICATION: Confusion. COMPARISON: No prior studies are available for comparison. FINDINGS: Ventricles and sulci are appropriate for the patient's age. No sulcal effacement or midline shift is identified. No acute intra-axial or extra-axial hemorrhage is detected. Cisterns are patent. Visualized paranasal sinuses are clear. IMPRESSION: No acute intracranial process is detected. Dictated on workstation # [id number] Dict: 12/18/18 1452 Trans: 12/18/18 1455 [id number] Interpreted by: SUSHMA REAVES MD Electronically signed by: (KATE MO MD) Departure Impression Primary Impression: Memory difficulties Disposition: 01 HOME, SELF-CARE Condition: Stable Departure-Patient Inst. Decision time for Depature: 15:19 (KATE MO MD) Referrals: [facility] (PCP) Primary Care Physician Patient Instructions: Mild Cognitive Impairment Add. Discharge Instructions: All discharge instructions reviewed with patient and/or family. Voiced understanding. Follow-up with Dr. Maharaj early next week for recheck and further evaluation and to get the MRI if he believes its indicated. Return for worsening, fever, vomiting, weakness, breathing problems or other concerns as needed. Continue home meds. Drink adequate amount of fluids and eat a normal diet. Copy Copies To 1: EDVIN MAHARAJ MD, BRODIE PA STUDENT Dec 18, 2018 13:19 KATE MO MD Dec 18, 2018 15:05
[2018-12-18 13:25] LABS: BASOPHILS # (AUTO) 0.1 10^3/uL (0.0-0.1); BASOPHILS % (AUTO) 1 % (0-10); EOSINOPHILS # (AUTO) 0.2 10^3/uL (0.0-0.3); EOSINOPHILS % (AUTO) 2 % (0-10); HEMATOCRIT 39 % (35-52); HEMOGLOBIN 12.9 G/DL (11.5-16.0); LYMPHOCYTES % (AUTO) 11 % (12-44); MEAN CORPUSCULAR HEMOGLOBIN 32 PG (25-34); MEAN CORPUSCULAR HGB CONC 33 G/DL (32-36); MEAN CORPUSCULAR VOLUME 95 FL (80-99); MEAN PLATELET VOLUME 11.8 FL (7.4-10.4); MONOCYTES # (AUTO) 0.6 X 10^3 (0.0-1.0); MONOCYTES % (AUTO) 6 % (0-12); NEUTROPHILS # (AUTO) 7.9 X 10^3 (1.8-7.8); NEUTROPHILS % (AUTO) 81 % (42-75); PLATELET COUNT 262 10^3/uL (130-400); WHITE BLOOD COUNT 9.8 10^3/uL (4.3-11.0)
[2018-12-18 13:47] LABS: ALANINE AMINOTRANSFERASE 20 U/L (0-55); ALBUMIN 4.2 GM/DL (3.2-4.5); ALKALINE PHOSPHATASE 98 U/L (40-136); BILIRUBIN,TOTAL 0.6 MG/DL (0.1-1.0); BUN/CREATININE RATIO 22; CALCIUM 8.8 MG/DL (8.5-10.1); CARBON DIOXIDE 27 MMOL/L (21-32); CHLORIDE 100 MMOL/L (98-107); CREATININE SERUM 0.73 MG/DL (0.60-1.30); GFR ESTIMATED > 60; GLUCOSE 152 MG/DL (70-105); POTASSIUM 4.3 MMOL/L (3.6-5.0); SODIUM 138 MMOL/L (135-145)
[2018-12-18] MEDS ORDERED: NS IV 500 ML 500 ML IV ONE (13:50)
[2018-12-18 14:00] LABS: BILIRUBIN,URINE NEGATIVE (NEGATIVE); CLARITY,URINE CLEAR; COLOR,URINE YELLOW; GLUCOSE, URINE (UA) NEGATIVE (NEGATIVE); KETONES,URINE NEGATIVE (NEGATIVE); LEUKOCYTE ESTERASE ,URINE 2+ (NEGATIVE); NITRITE,URINE NEGATIVE (NEGATIVE); PH,URINE 6 (5-9); PROTEIN,URINE 1+ (NEGATIVE); UROBILINOGEN,URINE NORMAL (NORMAL)
[2018-12-18 14:13] LABS: BACTERIA,URINE NEGATIVE /HPF; RBC,URINE 0-2 /HPF; WBC,URINE 0-2 /HPF
[2018-12-18 14:25] LABS: INR 0.9 (0.8-1.4); PROTHROMBIN TIME PATIENT 12.7 SEC (12.2-14.7)
[2018-12-18 14:28] LABS: FIBRIN DEGRADATION PRODUCTS 0.53 UG/ML (0.00-0.49)
--- NOTE | 2018-12-18 14:33 | Diagnostic Imaging Report ---
PATIENT HISTORY: Altered mental status, memory loss. TECHNIQUE: Frontal view of the chest. COMPARISON: 09/25/2016. FINDINGS: Lung volumes are mildly large. There is mild cardiomegaly. Haziness in the lung bases is thought to be due to overlying soft tissue. No significant pleural effusion or pneumothorax is seen. There is aortic atherosclerosis. IMPRESSION: Large lung volumes and mild cardiomegaly with no acute pulmonary abnormality seen. Dictated by: Dictated on workstation # [id number]
--- NOTE | 2018-12-18 14:55 | Diagnostic Imaging Report ---
PROCEDURE: CT head wo r/o stroke. TECHNIQUE: Multiple contiguous axial images were obtained through the brain without the use of intravenous contrast. Auto Exposure Controls were utilized during the CT exam to meet ALARA standards for radiation dose reduction. INDICATION: Confusion. COMPARISON: No prior studies are available for comparison. FINDINGS: Ventricles and sulci are appropriate for the patient's age. No sulcal effacement or midline shift is identified. No acute intra-axial or extra-axial hemorrhage is detected. Cisterns are patent. Visualized paranasal sinuses are clear. IMPRESSION: No acute intracranial process is detected. Dictated by: Dictated on workstation # [id number]
[2018-12-18 15:50] VITALS: BP 191/71
== END 2018-12-18 15:50 | disposition home or self-care (01) ==
LOC: EDUNIT# 12:50 → ER 12:53
DX: R41.3 Other amnesia (principal); I10 Essential (primary) hypertension; E11.9 Type 2 diabetes mellitus without complications; J44.9 Chronic obstructive pulmonary disease, unspecified; F41.9 Anxiety disorder, unspecified; F32.9 Major depressive disorder, single episode, unspecified; E78.00 Pure hypercholesterolemia, unspecified; E78.5 Hyperlipidemia, unspecified; E03.9 Hypothyroidism, unspecified; D64.9 Anemia, unspecified; Z85.3 Personal history of malignant neoplasm of breast; Z85.850 Personal history of malignant neoplasm of thyroid; Z99.81 Dependence on supplemental oxygen; Z88.2 Allergy status to sulfonamides; Z88.5 Allergy status to narcotic agent; Z88.1 Allergy status to other antibiotic agents; Z88.8 Allergy status to other drugs, medicaments and biological substances; Z79.51 Long term (current) use of inhaled steroids; Z79.84 Long term (current) use of oral hypoglycemic drugs; Z87.891 Personal history of nicotine dependence; Z90.49 Acquired absence of other specified parts of digestive tract; Z90.710 Acquired absence of both cervix and uterus; Z90.89 Acquired absence of other organs
CPT/HCPCS: 36415; 70450; 71045; 80053; 81000; 82962; 84484; 85025; 85379; 85610; 85730; 93005; 93041; 96360

== ENCOUNTER → 2018-12-24 | Outpatient (CLI) | payer MEDICARE, OTHER ==
--- NOTE | 2018-12-24 12:37 | Diagnostic Imaging Report ---
PROCEDURE: MR imaging of the brain without contrast. TECHNIQUE: Multiplanar, multisequence MR imaging of the brain was performed without contrast. INDICATION: Memory disturbance, expressive aphasia. FINDINGS: Ventricles and sulci are prominent. Baltazar and white matter signal intensities are unremarkable for patient's age. There is no abnormal mass effect or shift of midline structures. There is no restricted diffusion to indicate an infarct. There is no evidence of hemorrhage. The visualized paranasal sinuses are clear. IMPRESSION: Unremarkable MRI of the brain. Dictated by: Dictated on workstation # [id number]
== END ==
LOC: RAD 11:46
PROVIDERS: ATTEND Internal Medicine
DX: I10 Essential (primary) hypertension (principal); R47.01 Aphasia; R41.3 Other amnesia
CPT/HCPCS: 70551

== ENCOUNTER 2019-03-25 10:24 | Outpatient (RCR) | payer MEDICARE, OTHER ==
[2018-12-29 13:23] LABS: BASOPHILS % (AUTO) 0 % (0-10); EOSINOPHILS # (AUTO) 0.2 10^3/uL (0.0-0.3); EOSINOPHILS % (AUTO) 2 % (0-10); HEMATOCRIT 38 % (35-52); HEMOGLOBIN 12.4 G/DL (11.5-16.0); LYMPHOCYTES # (AUTO) 1.1 X 10^3 (1.0-4.0); LYMPHOCYTES % (AUTO) 11 % (12-44); MEAN CORPUSCULAR HEMOGLOBIN 31 PG (25-34); MEAN CORPUSCULAR HGB CONC 33 G/DL (32-36); MEAN CORPUSCULAR VOLUME 94 FL (80-99); MEAN PLATELET VOLUME 11.6 FL (7.4-10.4); MONOCYTES # (AUTO) 0.7 X 10^3 (0.0-1.0); MONOCYTES % (AUTO) 7 % (0-12); NEUTROPHILS # (AUTO) 8.2 X 10^3 (1.8-7.8); NEUTROPHILS % (AUTO) 81 % (42-75); PLATELET COUNT 271 10^3/uL (130-400); RED CELL DISTRIBUTION WIDTH 13.1 % (10.0-14.5); WHITE BLOOD COUNT 10.2 10^3/uL (4.3-11.0)
[2018-12-29 13:34] LABS: ALANINE AMINOTRANSFERASE 15 U/L (0-55); ALBUMIN 4.1 GM/DL (3.2-4.5); ALKALINE PHOSPHATASE 88 U/L (40-136); BILIRUBIN,TOTAL 0.6 MG/DL (0.1-1.0); BUN/CREATININE RATIO 21; CALCIUM 9.2 MG/DL (8.5-10.1); CARBON DIOXIDE 28 MMOL/L (21-32); CHLORIDE 101 MMOL/L (98-107); CREATININE SERUM 0.72 MG/DL (0.60-1.30); GFR ESTIMATED > 60; GLUCOSE 119 MG/DL (70-105); SODIUM 141 MMOL/L (135-145); TOTAL PROTEIN 6.6 GM/DL (6.4-8.2)
[~2019-03-25 10:24] MED LIST changes: +DENOSUMAB 60 MG/1 ML (PROLIA) CANCER CTR SQ SCH; +METF500T19 PO; -METF500T8 PO
[2019-03-25 10:39] LABS: BASOPHILS # (AUTO) 0.1 10^3/uL (0.0-0.1); BASOPHILS % (AUTO) 1 % (0-10); EOSINOPHILS # (AUTO) 0.2 10^3/uL (0.0-0.3); EOSINOPHILS % (AUTO) 2 % (0-10); HEMATOCRIT 38 % (35-52); HEMOGLOBIN 12.8 G/DL (11.5-16.0); LYMPHOCYTES # (AUTO) 0.9 X 10^3 (1.0-4.0); LYMPHOCYTES % (AUTO) 11 % (12-44); MEAN CORPUSCULAR HEMOGLOBIN 31 PG (25-34); MEAN CORPUSCULAR HGB CONC 34 G/DL (32-36); MEAN CORPUSCULAR VOLUME 93 FL (80-99); MEAN PLATELET VOLUME 11.6 FL (7.4-10.4); MONOCYTES # (AUTO) 0.7 X 10^3 (0.0-1.0); MONOCYTES % (AUTO) 9 % (0-12); NEUTROPHILS # (AUTO) 6.1 X 10^3 (1.8-7.8); NEUTROPHILS % (AUTO) 77 % (42-75); PLATELET COUNT 328 10^3/uL (130-400); RED CELL DISTRIBUTION WIDTH 14.8 % (10.0-14.5); WHITE BLOOD COUNT 7.9 10^3/uL (4.3-11.0)
[2019-03-25 10:59] LABS: ALBUMIN 4.2 GM/DL (3.2-4.5); BILIRUBIN,TOTAL 1.3 MG/DL (0.1-1.0); CREATININE SERUM 0.9 MG/DL (0.60-1.30); POTASSIUM 2.9 MMOL/L (3.6-5.0); TOTAL PROTEIN 6.5 GM/DL (6.4-8.2)
== END 2019-03-29 | disposition home or self-care (01) ==
LOC: ONC 10:24
PROVIDERS: ATTEND Internal Medicine Hematology & Oncology
DX: C73 Malignant neoplasm of thyroid gland (principal); C50.111 Malignant neoplasm of central portion of right female breast; I89.0 Lymphedema, not elsewhere classified; M85.88 Other specified disorders of bone density and structure, other site; Z17.0 Estrogen receptor positive status [ER+]; Z78.0 Asymptomatic menopausal state; Z79.811 Long term (current) use of aromatase inhibitors; Z98.890 Other specified postprocedural states
CPT/HCPCS: 36415; 80053; 82306; 84432; 84443; 85025; 86376; 86800; 96372; 99213

== ENCOUNTER 2020-01-23 17:32 | Observation (INO) | payer MEDICARE, OTHER ==
[~2020-01-23] VITALS: Ht 152 cm; Wt 74.9 kg
[~2020-01-23 17:32] MED LIST changes: -DENOSUMAB 60 MG/1 ML (PROLIA) CANCER CTR SQ SCH; +LETR2.5T6 PO; +METF-865 PO; -METF500T19 PO
[2020-01-23] MEDS ORDERED: NYSTATIN OINTMENT 30 GM TUBE TOP ONE (17:45)
[2020-01-23 17:50] LABS: BILIRUBIN,URINE NEGATIVE (NEGATIVE); CLARITY,URINE SL CLOUDY; COLOR,URINE YELLOW; GLUCOSE, URINE (UA) NEGATIVE (NEGATIVE); KETONES,URINE NEGATIVE (NEGATIVE); LEUKOCYTE ESTERASE ,URINE NEGATIVE (NEGATIVE); NITRITE,URINE NEGATIVE (NEGATIVE); PH,URINE 7.5 (5-9); PROTEIN,URINE 2+ (NEGATIVE)
--- NOTE | 2020-01-23 17:51 | ED General ---
General Chief Complaint: Trauma-Non Activation Stated Complaint: FALL History of Present Illness Date Seen by Provider: Jan 23, 2020 Time Seen by Provider: 17:30 Initial Comments This is an 79-year-old female who presents to the ER via [facility] after sustaining a fall at home. EMS reports that patient had an unwitnessed fall and unknown down time. She lives alone at home, has a history of Dementia and her children stop by occasionally to help take care of her. Initially upon ED arrival she would only answer yes or no questions. Eventually she was able to recall person and place. She does not know how long ago she fell, but states that she tripped over her dog. She complains of forehead pain and bilateral hip pain. Rates 4 out of 10, dull ache, localized to her forehead and hips. Denies aggravating/alleviating factors. No family contact provided at this time. She denies fevers, cough, headache, shortness of breath, nausea, vomiting, diarrhea, abdominal pain, or dysuria. Allergies and Home Medications Allergies Coded Allergies: Sulfa (Sulfonamide Antibiotics) (Unverified Allergy, Mild, HIVES, 04/21/05) codeine (Unverified Allergy, Mild, NAUSEA, 04/21/05) atorvastatin (Verified Allergy, Unknown, 04/21/05) cephalexin (Unverified Allergy, Unknown, PT HAS REC ROCEPHIN,CEFTIN & AUGMENTIN IN PAST, 12/19/11) PER DR. WASSERMAN'S OFFICE PT HAS RECEIVED ROCEPHIN, CEFTIN, AND AUGMENTIN IN PAST WITHOUT PROBLEMS doxycycline (Verified Allergy, Unknown, 04/21/05) gatifloxacin (Verified Allergy, Unknown, 04/21/05) grepafloxacin (Verified Allergy, Unknown, 04/21/05) indapamide (Unverified Allergy, Unknown, 11/21/14) penbutolol (Verified Allergy, Unknown, 04/21/05) sulfamethoxazole (Verified Allergy, Unknown, 04/21/05) trimethoprim (Verified Allergy, Unknown, 04/21/05) Home Medications Albuterol Sulfate 1 Puff Puff, 2 PUFF IH Q4H PRN for SHORTNESS OF BREATH, (Reported) 1 PUFF = 90 MCG Ascorbic Acid 500 Mg Capsule, 500 MG PO DAILY, (Reported) Candesartan/Hydrochlorothiazid 1 Each Tablet, 1 EACH PO DAILY, (Reported) Cholecalciferol (Vitamin D3) 2,000 Unit Tablet, 2,000 UNIT PO DAILY, (Reported) Clindamycin HCl 300 Mg Capsule, 300 MG PO Q6H Prescribed by: SAMSON MULLINS on 04/17/18 1409 Ezetimibe 10 Mg Tablet, 10 MG PO DAILY, (Reported) Famotidine 20 Mg Tablet, 20 MG PO BID, (Reported) Fluticasone/Salmeterol 1 Each Blst.w.dev, 1 EACH IH BID, (Reported) Furosemide 20 Mg Tablet, 20 MG PO DAILY, (Reported) Letrozole 2.5 Mg Tablet, 2.5 MG PO DAILY, (Reported) Levothyroxine Sodium 100 Mcg Tablet, 100 MCG PO DAILY, (Reported) Magnesium Oxide 250 Mg Tablet, 250 MG PO DAILY, (Reported) Metformin HCl 500 Mg Tab.er.24h, 1,000 MG PO DAILY, (Reported) take 2 (500mg) tabs Nebivolol HCl 5 Mg Tablet, 5 MG PO DAILY, (Reported) Oxazepam 15 Mg Capsule, 15 MG PO DAILY, (Reported) take with 10mg tab for 25mg total Oxazepam 10 Mg Cap, 10 MG PO BID, (Reported) takes with 15mg tab in am for 25mg total take only 1 (10mg) tab at hs Oxazepam 10 Mg Cap, 20 MG PO DAILY@1200,1700, (Reported) take 2 (10mg) tabs Tiotropium Nixon 1 Inh Aerp, 1 INH IH DAILY, (Reported) Patient Home Medication List Home Medication List Reviewed: Yes Review of Systems Review of Systems Constitutional: no symptoms reported EENTM: no symptoms reported Respiratory: no symptoms reported Cardiovascular: no symptoms reported Gastrointestinal: no symptoms reported Genitourinary: no symptoms reported Musculoskeletal: no symptoms reported Skin: no symptoms reported Psychiatric/Neurological: No Symptoms Reported Hematologic/Lymphatic: No Symptoms Reported Immunological/Allergic: no symptoms reported Past Nxwdbnm-Lmpbco-Swjimn Hx Patient Social History Type Used: Cigarettes Former Smoker, Quit: Mar 10, 2004 2nd Hand Smoke Exposure: No Recent Hopitalizations: No Immunizations Up To Date Tetanus Booster (TDap): Less than 5yrs Date of Pneumonia Vaccine: Dec 18, 2007 Date of Influenza Vaccine: Dec 12, 2016 Seasonal Allergies Seasonal Allergies: No Past Medical History Surgeries: Yes (D AND C'S, RIGHT HAND SX, LASER EYE SURGERY ) Appendectomy, Breast, Eye Surgery, Hysterectomy, Oophorectomy, Orthopedic, Thyroidectomy, Tonsillectomy Respiratory: Yes (HOME O2 AT 2L/NC) Chronic Bronchitis, COPD Cardiac: Yes (HOME O2 AT 2L/NC) High Cholesterol, Hypertension Neurological: No 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 History: Hysterectomy Genitourinary: No Gastrointestinal: Yes (GALLSTONES-NO SURGERY) Chronic Constipation, Hemorrhoids, Gall Bladder Disease Musculoskeletal: Yes (ARTHRITIS; LYMPHEDEMA RIGHT ARM-S/P RIGHT lumpectomy) Arthritis Endocrine: Yes ( THYROID CANCER--S/P SURGERY) Hypothyroidsim, Diabetes, Non-Insulin dep HEENT: Yes Cataract Cancer: Yes Breast, Thyroid Did You Recieve Any Treatments: Yes What Type of Treatment Did You: Radiation, Surgical Intervention Psychosocial: Yes Anxiety, Depression Integumentary: Yes Psoriasis Blood Disorders: Yes (anemia) Physical Exam Vital Signs Vital Signs - First Documented 01/23/20 01/23/20 01/23/20 17:36 19:24 21:06 Temp 35.6 Pulse 62 Resp 18 B/P (MAP) 202/100 (134) Pulse Ox 97 O2 Delivery Room Air O2 Flow Rate 3.00 Capillary Refill : Height, Weight, BMI Height: 4'11.00" Weight: 176lbs. 0.0oz. 79.279060ob; 35.00 BMI Method:Stated General Appearance: No Apparent Distress, WD/WN Eyes: Bilateral Eye Normal Inspection, Bilateral Eye PERRL, Bilateral Eye EOMI HEENT: PERRL/EOMI, TMs Normal, Pharynx Normal Respiratory: Lungs Clear, No Accessory Muscle Use, No Respiratory Distress, Decreased Breath Sounds Cardiovascular: Regular Rate, Rhythm, Normal Peripheral Pulses, Other (generalized ) Gastrointestinal: Normal Bowel Sounds, Non Tender, Soft Back: Normal Inspection, No Vertebral Tenderness Extremity: Normal Capillary Refill, Normal Inspection, Normal Range of Motion, Non Tender, No Pedal Edema Neurologic/Psychiatric: Alert, No Motor/Sensory Deficits, Normal Mood/Affect Skin: Warm/Dry, Pallor, Other (dry feces noted on bilateral lower extremities and feet. Toenails are overgrown with feces underneath. Excoriation and yeast present in bilateral breast folds and abdominal fold. Blanchable area of erythema on coccyx. Yellow/green bruising on forehead above left eyebrow. ) Focused Exam Lactate Level 01/23/20 19:00: Lactic Acid Level 2.36*H 01/23/20 21:20: Lactic Acid Level Laboratory Tests Test 01/23/20 19:00 01/23/20 21:20 Lactic Acid Level 2.36 MMOL/L (0.50-2.00) *H Progress/Results/Core Measures Suspected Sepsis SIRS Temperature: Pulse: Respiratory Rate: Laboratory Tests 01/23/20 18:09: White Blood Count 15.0H Blood Pressure / Mean: 01/23/20 19:00: Lactic Acid Level 2.36*H 01/23/20 21:20: Laboratory Tests 01/23/20 18:09: Creatinine 1.18, INR Comment 1.0, Platelet Count 264, Total Bilirubin 1.5H Results/Orders Lab Results Laboratory Tests Test 01/23/20 17:46 01/23/20 18:09 01/23/20 19:00 01/23/20 21:20 Range/Units Urine Color YELLOW Urine Clarity SL CLOUDY Urine pH 7.5 5-9 Urine Specific [place] 1.020 1.016-1.022 Urine Protein 2+ H NEGATIVE Urine Glucose (UA) NEGATIVE NEGATIVE Urine Ketones NEGATIVE NEGATIVE Urine Nitrite NEGATIVE NEGATIVE Urine Bilirubin NEGATIVE NEGATIVE Urine Urobilinogen 1.0 < = 1.0 MG/DL Urine Leukocyte Esterase NEGATIVE NEGATIVE Urine RBC (Auto) 2+ H NEGATIVE Urine RBC RARE /HPF Urine WBC RARE /HPF Urine Squamous Epithelial Cells NONE /HPF Urine Renal Epithelial Cells RARE /HPF Urine Crystals NONE /LPF Urine Bacteria TRACE /HPF Urine Casts NONE /LPF Urine Mucus SMALL H /LPF Urine Culture Indicated NO White Blood Count 15.0 H 4.3-11.0 10^3/uL Red Blood Count 3.79 L 3.80-5.11 10^6/uL Hemoglobin 12.9 11.5-16.0 g/dL Hematocrit 38 35-52 % Mean Corpuscular Volume 101 H 80-99 fL Mean Corpuscular Hemoglobin 34 25-34 pg Mean Corpuscular Hemoglobin Concent 34 32-36 g/dL Red Cell Distribution Width 13.8 10.0-14.5 % Platelet Count 264 130-400 10^3/uL Mean Platelet Volume 10.3 9.0-12.2 fL Prothrombin Time 13.8 12.2-14.7 SEC INR Comment 1.0 0.8-1.4 Activated Partial Thromboplast Time 29 24-35 SEC Sodium Level 141 135-145 MMOL/L Potassium Level 3.7 3.6-5.0 MMOL/L Chloride Level 99 98-107 MMOL/L Carbon Dioxide Level 25 21-32 MMOL/L Anion Gap 17 H 5-14 MMOL/L Blood Urea Nitrogen 22 H 7-18 MG/DL Creatinine 1.18 0.60-1.30 MG/DL Estimat Glomerular Filtration Rate 44 BUN/Creatinine Ratio 19 Glucose Level 120 H 70-105 MG/DL Calcium Level 8.7 8.5-10.1 MG/DL Corrected Calcium 8.5 8.5-10.1 MG/DL Total Bilirubin 1.5 H 0.1-1.0 MG/DL Aspartate Amino Transf (AST/SGOT) 54 H 5-34 U/L Alanine Aminotransferase (ALT/SGPT) 37 0-55 U/L Alkaline Phosphatase 80 40-136 U/L B-Type Natriuretic Peptide 50.7 <100.0 PG/ML Total Protein 7.2 6.4-8.2 GM/DL Albumin 4.3 3.2-4.5 GM/DL Thyroid Stimulating Hormone (TSH) 62.82 H 0.35-4.94 UIU/ML Serum Alcohol < 10 <10 MG/DL Lactic Acid Level 2.36 *H 0.50-2.00 MMOL/L My Orders Orders - AIDAN BEY SOLE [employer]AP[employer] WELT Cbc No Diff (01/23/20 17:40) Ua Culture If Indicated (01/23/20 17:40) Ct Head/Cervical Spine Wo (01/23/20 17:40) Ekg Tracing (01/23/20 17:40) Ed Iv/Invasive Line Start (01/23/20 17:40) Comprehensive Metabolic Panel (01/23/20 17:40) Nystatin Ointment (Mycostatin Ointment) (01/23/20 17:45) Ct Chest/Abdomen/Pelvis Wo (01/23/20 18:06) Nystatin Cream (Mycostatin Cream) (01/23/20 18:07) Blood Culture (01/23/20 18:27) Protime With Inr (01/23/20 18:27) Partial Thromboplastin Time (01/23/20 18:27) Lactic Acid Analyzer (01/23/20 18:27) Ns (Ivpb) (Sodium Chloride 0.9%) (01/23/20 19:25) Alcohol (01/23/20 19:41) Cefepime Injection (Maxipime Injection) (01/23/20 20:00) BNP (01/23/20 20:20) Thyroid Stimulating Hormone (01/23/20 20:20) Medications Given in ED Current Medications Medications Dose Ordered Sig/Wili Route Start Time Stop Time Status Last Admin Dose Admin Cefepime HCl 1000 mg/Sterile Water 10 ml @ 200 mls/hr ONCE ONCE IV 01/23/20 20:00 01/23/20 20:02 DC 01/23/20 20:08 200 MLS/HR Nystatin 30 gm STK-MED ONCE TP 01/23/20 18:07 01/23/20 18:10 DC 01/23/20 18:14 30 GM Sodium Chloride 250 ml @ 0 mls/hr Q0M ONCE IV 01/23/20 19:25 01/23/20 19:27 DC 01/23/20 19:38 250 MLS/HR Vital Signs/I&O 01/23/20 01/23/20 01/23/20 17:36 19:24 21:06 Temp 35.6 Pulse 62 66 66 Resp 18 18 18 B/P (MAP) 202/100 (134) 196/101 (132) 175/95 Pulse Ox 97 99 99 O2 Delivery Room Air Nasal Cannula O2 Flow Rate 3.00 Capillary Refill : Progress Note : Time: 17:48 Progress Note ED COURSE: Upon ED arrival patient found to be wearing gown covered in soiled urine, old and new. Additionally she was found to have dried feces on her legs and feet. Yeast and skin breakdown noted on bilateral breast folds and abdominal fold. Mandated call to adult protective services completed, reference #[id number]. Elevated Lactic acid 2.36, initiated small 250ml saline fluid bolus as it appears she has a moderate right pleural effusion. Initiated Cefepime 1gm IV. Has documented allergy to Cephalexin, but has received Augmentin, Rocephin, and Ceftin in the past without issue. 2020: Case reviewed with Dr. Palacios, recommended observation admission to the medical unit. Disposition: Admit observation to medical unit to Dr. Palacios. Plan: Pleural effusion/leukocytosis/pericardial effusion -Cefepime 1gm IV q 6 hours, first dose received in ED. -Lactic acid elevated 2.36, will trend. Orders placed for 3 hour repeat. -CBC, CMP in am. -Blood cultures x 2 pending. -Strict I/0 and daily weight -Low sodium diet -Oxygen 3 liter NC, to keep O2 sat above 94%. -Gentle hydration NS at 50ml/hr. -BNP and TSH added and pending FULL CODE 1836: Daughter Karen Arroyo called in stating her older sister Dali Meyer has been caring for their mother locally and they have no contact for her. However, recently she has not been keeping other family members informed of her condition. Karen stated her older sister Dali attempted to get patient placed in nursing facility locally, however, was told by all facilities they are not accepting new patients due to COVID. Patient has no known advance directives. Discussed plan with family and they are agreeable with plan. Notified Karen that a report to Adult Protective Services have been initiated due to patient condition. ECG Initial ECG Impression Date: Jan 23, 2020 Initial ECG Impression Time: 17:57 Initial ECG Rate: 65 Initial ECG Rhythm: Normal Sinus Diagnostic Imaging Diagonstic Imaging: CT Plain Films/CT/US/NM/MRI: c-spine, head Comments NAME: HERMES ECHEVERRIA Amanda [facility] REC#: [id number] PT STATUS: REG ER : 1940 PHYSICIAN: AIDAN BEY APRN ADMIT DATE: 01/23/20/ER Draft Date of Exam:01/23/20 CT HEAD/CERVICAL SPINE WO PROCEDURE: CT head and CT cervical spine without contrast. TECHNIQUE: Multiple contiguous axial images were obtained through the brain and cervical spine without the use of intravenous contrast. Sagittal and coronal reformations through the cervical spine were then performed. Auto Exposure Controls were utilized during the CT exam to meet ALARA standards for radiation dose reduction. INDICATION: Unwitnessed fall, multiple bruises. CORRELATION STUDY: 12/18/2018. FINDINGS: CT head: Generalized atrophic changes with prominence of the ventricles and sulci. A few scattered areas of decreased attenuation while nonspecific likely reflect small vessel ischemic disease. No midline shift or mass effect. No intracranial hemorrhage. No hyperdense MCA sign. Bony calvarium intact. Paranasal sinuses are generally clear. The exception is trace fluid in the sphenoid sinuses. CT cervical spine: Trace anterolisthesis of C4 on C5. Alignment of the curvature is otherwise relatively anatomic. Vertebral body heights are maintained. Moderate disc space narrowing at the C5-C6 and C6-C7 levels. Posterior elements with mild hypertrophic facet arthropathy. Odontoid intact. Visualized lung apices demonstrate what appears to be a sizable right pleural effusion. IMPRESSION: 1. Negative for acute traumatic intracranial abnormality. 2. Negative for acute fracture or traumatic subluxation of spine. Mild/moderate multilevel cervical spondylosis. 3. At least moderate sized high right pleural effusion partially visualized. Dictated on workstation # [id number] Dict: 01/23/201904 Trans: 01/23/201937 [facility] [id number] Interpreted by: YOMAIRA MUNGUIA DO Electronically signed by: Jana Imaging: CT Plain Films/CT/US/NM/MRI: chest, abdomen, pelvis Comments NAME: VENESSA ECHEVERRIALópez Patel [facility] REC#: [id number] PT STATUS: REG ER : 1940 PHYSICIAN: AIDAN BEY APRN ADMIT DATE: 01/23/20/ER Draft Date of Exam:01/23/20 CT CHEST/ABDOMEN/PELVIS WO PROCEDURE: CT chest, abdomen and pelvis without contrast. TECHNIQUE: Multiple contiguous axial images were obtained through the chest, abdomen, and pelvis without the use of intravenous contrast. Auto Exposure Controls were utilized during the CT exam to meet ALARA standards for radiation dose reduction. INDICATION: Unwitnessed fall, multiple bruises. CORRELATION STUDY: 02/10/2014. FINDINGS: CT chest: Heart size is enlarged. There has been development of rather significant and sizable pericardial effusion. Slight contour deformity, particularly at the right atrium. Thickened segment along the anterior right aspect up to 3.8 cm. Scattered coronary artery calcification. Calcification at the aortic valve. Thoracic aortic contour unremarkable with moderate calcific, particularly at the arch. There is a moderate sized right pleural effusion and small left pleural effusion. Some compressive atelectasis in the right lower lobe and to a lesser degree minimal atelectasis at the left lung base. No overt infiltrate. No pneumothorax. Osseous structures demonstrate no definite evidence for acute displaced fracture. There is accentuated thoracic kyphosis and mild anteriorly wedged multiple thoracic vertebral bodies. Bridging osteophytes and diffuse disc space narrowing. CT abdomen/pelvis: Unenhanced liver unremarkable. Calcified granulomas of the spleen. Kidneys relatively unremarkable. Pancreatic bed atrophic. Adrenal glands unremarkable. Multiple gallstones. No overt bile ductal dilatation. Moderate aortoiliac wall calcification, nonaneurysmal. Extensive colonic diverticulosis. No bowel obstruction. Urinary bladder unremarkable. Uterus is absent. There is mild generalized haziness about the mesentery with minimal, trace effusion. Some 3rd spacing subcutaneous edema. More focal skin thickening and haziness about the lower abdominal wall does raise concern for cellulitis. Osseous structures accentuate lumbar lordosis. Trace anterolisthesis of L4 on L5. IMPRESSION: CT chest: 1. Moderate right and smaller left pleural effusion. Associated compressive atelectasis. 2. Cardiac enlargement. There has been development of rather sizable pericardial effusion since the prior study. There is question of slight compression, particularly upon the right atrium. Consideration for echocardiography recommended. CT abdomen and pelvis: 1. No definite evidence for acute abnormality about the abdomen and/or pelvis. 2. Mild generalized 3rd spacing. 3. More focal inflammatory changes of skin thickening does raise concern for lower abdominal wall cellulitis. Clinical correlation recommended. 4. Extensive colonic diverticulosis. 5. Cholelithiasis. Dictated on workstation # [id number] Dict: 01/23/201920 Trans: 01/23/202002 [facility] [id number] Interpreted by: YOMAIRA MUNGUIA DO Electronically signed by: Departure Communication (Admissions) Time/Spoke to Admitting Phy: 20:[address] Palacios. Impression Primary Impression: Pericardial effusion Additional Impressions: Bilateral pleural effusion Cellulitis Disposition: ADMITTED INPATIENT Condition: Stable/Unchanged Admissions Decision to Admit Reason: Admit from ER (Trauma) Decision to Admit/Date: Jan 23, 2020 Time/Decision to Admit Time: 20:15 Departure-Patient Inst. Referrals: [facility] [place] Primary Care Physician AIDAN BEY APRN Jan 23, 2020 17:51
[2020-01-23 17:58] LABS: BACTERIA,URINE TRACE /HPF; RBC,URINE RARE /HPF; RENAL EPITHELIAL CELLS,URINE RARE /HPF; WBC,URINE RARE /HPF
[2020-01-23] MEDS ORDERED: NYSTATIN CREAM (MYCOSTATIN) 30 GM TUBE TP ONE (18:07)
[2020-01-23 18:15] LABS: HEMOGLOBIN 12.9 g/dL (11.5-16.0); MEAN PLATELET VOLUME 10.3 fL (9.0-12.2)
[2020-01-23 18:25] LABS: ALBUMIN 4.3 GM/DL (3.2-4.5); POTASSIUM 3.7 MMOL/L (3.6-5.0)
[2020-01-23 18:26] LABS: CALCIUM 8.7 MG/DL (8.5-10.1)
[2020-01-23 18:27] LABS: TOTAL PROTEIN 7.2 GM/DL (6.4-8.2)
[2020-01-23 18:29] LABS: BILIRUBIN,TOTAL 1.5 MG/DL (0.1-1.0)
[2020-01-23 18:31] LABS: CREATININE SERUM 1.18 MG/DL (0.60-1.30)
[2020-01-23 18:40] LABS: PROTHROMBIN TIME PATIENT 13.8 SEC (12.2-14.7)
--- NOTE | 2020-01-23 19:02 | NUR ---
Report from MARLIN Rodriguez.
--- NOTE | 2020-01-23 19:22 | NUR ---
Lab called with critical lactic of 2.36. Will notifty provider.
[2020-01-23] MEDS ORDERED: NS (IVPB) 250 ML IV ONE (19:25)
--- NOTE | 2020-01-23 19:40 | Diagnostic Imaging Report ---
PROCEDURE: CT head and CT cervical spine without contrast. TECHNIQUE: Multiple contiguous axial images were obtained through the brain and cervical spine without the use of intravenous contrast. Sagittal and coronal reformations through the cervical spine were then performed. Auto Exposure Controls were utilized during the CT exam to meet ALARA standards for radiation dose reduction. INDICATION: Unwitnessed fall, multiple bruises. CORRELATION STUDY: 12/18/2018. FINDINGS: CT head: Generalized atrophic changes with prominence of the ventricles and sulci. A few scattered areas of decreased attenuation while nonspecific likely reflect small vessel ischemic disease. No midline shift or mass effect. No intracranial hemorrhage. No hyperdense MCA sign. Bony calvarium intact. Paranasal sinuses are generally clear. The exception is trace fluid in the sphenoid sinuses. CT cervical spine: Trace anterolisthesis of C4 on C5. Alignment of the curvature is otherwise relatively anatomic. Vertebral body heights are maintained. Moderate disc space narrowing at the C5-C6 and C6-C7 levels. Posterior elements with mild hypertrophic facet arthropathy. Odontoid intact. Visualized lung apices demonstrate what appears to be a sizable right pleural effusion. IMPRESSION: 1. Negative for acute traumatic intracranial abnormality. 2. Negative for acute fracture or traumatic subluxation of spine. Mild/moderate multilevel cervical spondylosis. 3. At least moderate sized right pleural effusion partially visualized. Dictated by: Dictated on workstation # [id number]
[2020-01-23] MEDS ORDERED: CEFEPIME INJECTION 1,000 MG in WATER (STERILE) FOR INJECTION 10 ML IV ONE (20:00)
--- NOTE | 2020-01-23 20:03 | Diagnostic Imaging Report ---
PROCEDURE: CT chest, abdomen and pelvis without contrast. TECHNIQUE: Multiple contiguous axial images were obtained through the chest, abdomen, and pelvis without the use of intravenous contrast. Auto Exposure Controls were utilized during the CT exam to meet ALARA standards for radiation dose reduction. INDICATION: Unwitnessed fall, multiple bruises. CORRELATION STUDY: 02/10/2014. FINDINGS: CT chest: Heart size is enlarged. There has been development of rather significant and sizable pericardial effusion. Slight contour deformity, particularly at the right atrium. Thickened segment along the anterior right aspect up to 3.8 cm. Scattered coronary artery calcification. Calcification at the aortic valve. Thoracic aortic contour unremarkable with moderate calcific, particularly at the arch. There is a moderate sized right pleural effusion and small left pleural effusion. Some compressive atelectasis in the right lower lobe and to a lesser degree minimal atelectasis at the left lung base. No overt infiltrate. No pneumothorax. Osseous structures demonstrate no definite evidence for acute displaced fracture. There is accentuated thoracic kyphosis and mild anteriorly wedged multiple thoracic vertebral bodies. Bridging osteophytes and diffuse disc space narrowing. CT abdomen/pelvis: Unenhanced liver unremarkable. Calcified granulomas of the spleen. Kidneys relatively unremarkable. Pancreatic bed atrophic. Adrenal glands unremarkable. Multiple gallstones. No overt bile ductal dilatation. Moderate aortoiliac wall calcification, nonaneurysmal. Extensive colonic diverticulosis. No bowel obstruction. Urinary bladder unremarkable. Uterus is absent. There is mild generalized haziness about the mesentery with minimal, trace effusion. Some 3rd spacing subcutaneous edema. More focal skin thickening and haziness about the lower abdominal wall does raise concern for cellulitis. Osseous structures accentuate lumbar lordosis. Trace anterolisthesis of L4 on L5. IMPRESSION: CT chest: 1. Moderate right and smaller left pleural effusion. Associated compressive atelectasis. 2. Cardiac enlargement. There has been development of rather sizable pericardial effusion since the prior study. There is question of slight compression, particularly upon the right atrium. Consideration for echocardiography recommended. CT abdomen and pelvis: 1. No definite evidence for acute abnormality about the abdomen and/or pelvis. 2. Mild generalized 3rd spacing. 3. More focal inflammatory changes of skin thickening does raise concern for lower abdominal wall cellulitis. Clinical correlation recommended. 4. Extensive colonic diverticulosis. 5. Cholelithiasis. Dictated by: Dictated on workstation # [id number]
--- NOTE | 2020-01-23 20:25 | NUR ---
Family, Karen, called regarding patient. Phone numbers obtained and will be given to registration. Jessei provided an update on patient condition.
--- NOTE | 2020-01-23 21:30 | NUR ---
HERMES ECHEVERRIA admitted to room 425-1, with an admitting diagnosis of BILATERAL PLEURAL EFFUSION AND CELLULITIS, on 01/23/20 from ER via BED, accompanied by STAFF. HERMES ECHEVERRIA introduced to surroundings, call light, bed controls, phone, TV, temperature control, lights, meal times, smoking policy, visitor policy, side rail policy, bathrooms and showers. Patient Rights given to patient in the handbook. HERMES ECHEVERRIA verbalizes understanding that [facility] is not responsible for the loss or damage to any personal effects or valuables that are kept in the patients possession during their hospitalization. HERMES ECHEVERRIA verbalizes understanding of Interdisciplinary Patient Education. Patient and/or family were informed about the Rapid Response Team and its purpose.
[2020-01-23 21:43] VITALS: BP 195/88
[2020-01-23 22:05] VITALS: BP 195/88
[2020-01-23] MEDS ORDERED: ACETAMINOPHEN 325 MG TABLET PO PRN (22:15)
[2020-01-23] MEDS ORDERED: ONDANSETRON 4 MG/2 ML (SDV) Z0FRAN IV PRN (22:15)
[2020-01-23] MEDS: meTOprolol TARTRATE 50 MG (LOPRESSOR) TAB PO SCH (22:35)
[2020-01-23] MEDS: NS IV 1000 ML 1,000 ML IV SCH (22:35)
[2020-01-23 23:55] VITALS: BP 140/78
[2020-01-24] MEDS: CEFEPIME 1,000 MG/SWFI 10 ML IV PUSH IV SCH ×6 (03:52→19:48)
[2020-01-24 04:16] VITALS: BP 123/83
[2020-01-24 06:25] LABS: BASOPHILS # (AUTO) 0.1 10^3/uL (0.0-0.1); BASOPHILS % (AUTO) 1 % (0-10); EOSINOPHILS % (AUTO) 0 % (0-10); HEMATOCRIT 40 % (35-52); HEMOGLOBIN 12.9 g/dL (11.5-16.0); LYMPHOCYTES % (AUTO) 8 % (12-44); MEAN CORPUSCULAR HEMOGLOBIN 34 pg (25-34); MEAN CORPUSCULAR HGB CONC 33 g/dL (32-36); MEAN CORPUSCULAR VOLUME 103 fL (80-99); MEAN PLATELET VOLUME 10.6 fL (9.0-12.2); MONOCYTES # (AUTO) 0.7 10^3/uL (0.0-1.0); MONOCYTES % (AUTO) 6 % (0-12); NEUTROPHILS # (AUTO) 10.2 10^3/uL (1.8-7.8); NEUTROPHILS % (AUTO) 85 % (42-75); PLATELET COUNT 234 10^3/uL (130-400); WHITE BLOOD COUNT 12.1 10^3/uL (4.3-11.0)
[2020-01-24 06:33] LABS: ALBUMIN 3.9 GM/DL (3.2-4.5); POTASSIUM 3.5 MMOL/L (3.6-5.0)
[2020-01-24 06:34] LABS: CALCIUM 8.4 MG/DL (8.5-10.1)
[2020-01-24 06:35] LABS: TOTAL PROTEIN 6.6 GM/DL (6.4-8.2)
[2020-01-24 06:37] LABS: BILIRUBIN,TOTAL 1.7 MG/DL (0.1-1.0)
[2020-01-24 06:39] LABS: CREATININE SERUM 1.06 MG/DL (0.60-1.30)
[2020-01-24 08:00] VITALS: BP 167/78
[2020-01-24] MEDS: meTOprolol TARTRATE 50 MG (LOPRESSOR) TAB PO SCH ×2 (10:42→19:53)
[2020-01-24] MEDS: NYSTATIN CREAM (MYCOSTATIN) 30 GM TUBE TP SCH ×2 (10:43→19:53)
--- NOTE | 2020-01-24 11:21 | History & Physical-Hospitalist ---
KAREN BROWN MED STUDENT 01/24/20 1121: History of Present Illness HPI/Chief Complaint CC: Fall This is an 79-year-old female who presents to the ER via [facility] after sustaining a fall at home. EMS reports that patient had an unwitnessed f all and unknown down time. She lives alone at home, has a history of Dementia and her children stop by occasionally to help take care of her. Initially upon ED arrival she would only answer yes or no questions. Eventually she was able to recall person and place. She does not know how long ago she fell, but states that she tripped over her dog. She complains of forehead pain and bilateral hip pain. Rates 4 out of 10, dull ache, localized to her forehead and hips. Denies aggravating/alleviating factors. No family contact provided at this time. She denies fevers, cough, headache, shortness of breath, nausea, vomiting, diarrhea, abdominal pain, or dysuria. HPI: Patient not verbalizing answers when questioned this morning. Patient sitting upright in bed eating fruit and drinking. No responses when repeatedly questioned. Source: RN/MD (ED note reviewed), EMS Exam Limitations: clinical condition (dementia/patient not answering questions) Date Seen 01/24/20 Time Seen by a Provider: 08:30 Attending Physician Linette Palacios MD [facility] Referring Physician Date of Admission Jan 23, 2020 at 20:19 Home Medications & Allergies Home Medications Reviewed patient Home Medication Reconciliation performed by pharmacy medication reconciliations tractor technician and/or nursing. Patients Allergies have been reviewed. Allergies Allergies Coded Allergies Sulfa (Sulfonamide Antibiotics) (Unverified Allergy, Mild, HIVES, 04/21/05) codeine (Unverified Allergy, Mild, NAUSEA, 04/21/05) atorvastatin (Verified Allergy, Unknown, 04/21/05) cephalexin (Unverified Allergy, Unknown, PT HAS REC ROCEPHIN,CEFTIN & AUGMENTIN IN PAST, 12/19/11) PER DR. WASSERMAN'S OFFICE PT HAS RECEIVED ROCEPHIN, CEFTIN, AND AUGMENTIN IN PAST WITHOUT PROBLEMS doxycycline (Verified Allergy, Unknown, 04/21/05) gatifloxacin (Verified Allergy, Unknown, 04/21/05) grepafloxacin (Verified Allergy, Unknown, 04/21/05) indapamide (Unverified Allergy, Unknown, 11/21/14) penbutolol (Verified Allergy, Unknown, 04/21/05) sulfamethoxazole (Verified Allergy, Unknown, 04/21/05) trimethoprim (Verified Allergy, Unknown, 04/21/05) Past Dxgwxjl-Wdbboh-Rbzsxy Hx Patient Social History Marrital Status: single (lives at home alone) Living Status: Lives alone at home Employed/Student: unemployed Alcohol Use: Denies Use Recreational Drug Use: No (VALIUM) Smoking Status: Former Smoker Former Smoker, Quit: Mar 10, 2004 Type Used: Cigarettes 2nd Hand Smoke Exposure: No Recent Foreign Travel: No Contact w/other who traveled: No Recent Hopitalizations: No Recent Infectious Disease Expo: No Immunizations Up To Date Tetanus Booster (TDap): Less than 5yrs Date of Pneumonia Vaccine: Dec 18, 2007 Date of Influenza Vaccine: Dec 12, 2016 Seasonal Allergies Seasonal Allergies: No Past Medical History Surgeries: Appendectomy, Breast, Eye Surgery, Hysterectomy, Oophorectomy, Orthopedic, Thyroidectomy, Tonsillectomy Respiratory: COPD Cardiac: High Cholesterol, Hypertension Neurological: Dementia : No 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: No Hysterectomy Gastrointestinal: Chronic Constipation, Hemorrhoids, Gall Bladder Disease Musculoskeletal: Arthritis Endocrine: Hypothyroidsim, Diabetes, Non-Insulin dep HEENT: Cataract Cancer: Breast, Thyroid Did You Recieve Any Treatments: Yes What Type of Treatment Did You: Radiation, Surgical Intervention Psychosocial: Anxiety, Depression Skin/Integumentary: Psoriasis History of Blood Disorders: Yes (anemia) Review of Systems ROS-Unable to Obtain: Unable to obtain due to patient condition Physical Exam Physical Exam Vital Signs Vital Signs - First Documented 01/23/20 01/23/20 01/23/20 17:36 19:24 21:06 Temp 35.6 Pulse 62 Resp 18 B/P (MAP) 202/100 (134) Pulse Ox 97 O2 Delivery Room Air O2 Flow Rate 3.00 Capillary Refill : Less Than 3 Seconds Height, Weight, BMI Height: 4'11.00" Weight: 176lbs. 0.0oz. 79.745384ci; 32.37 BMI Method:Stated General Appearance: No Apparent Distress, WD/WN Eyes: Bilateral Eye EOMI HEENT: PERRL/EOMI, Pharynx Normal Neck: Full Range of Motion, Non Tender Respiratory: Chest Non Tender, Lungs Clear, No Accessory Muscle Use, Decreased Breath Sounds Cardiovascular: Regular Rate, Rhythm, Normal Peripheral Pulses Gastrointestinal: Normal Bowel Sounds, Non Tender, Soft; No Distended, No Guarding, No Rebound, No Tenderness Rectal: Deferred Back: Normal Inspection, No CVA Tenderness; No Muscle Spasm Extremity: Normal Capillary Refill, Non Tender, No Calf Tenderness Neurologic/Psychiatric: Alert, Disoriented (Disoriented to person, place, and time) Skin: Normal Color, Warm/Dry, Damp (Bilat breast fold/abdominal pannus fold/erythematous and moist), Other (Skin around sacrum reddened/blanchable though/dressing covering sacrum to prevent breakdown) Lymphatic: No Adenopathy Results Results/Procedures Labs Laboratory Tests 01/23/20 18:09 01/24/20 05:44 Patient resulted labs reviewed. Assessment/Plan Admission Diagnosis Pericardial effusion Bilateral pleural effusions Cellulitis ? Reason for Inpatient Admission: Will need close monitoring and treatment Assessment and Plan Fall Pericardial effusion Bilateral pleural effusions Markedly elevated TSH- Hypothyroidism Elevated LFT's Intertrigo- beneath breasts bilat and abdominal pannus fold COPD- 02 at home HTN HLP Diabetes mellitus Dementia 1. Fall precautions 2. Continue oxygen- titrate to keep sat >90 3. Restart home medications 4. Address elevated TSH level- may need to increase home synthroid dose/ascertain patient compliance 5. Continue gentle IVF maintenance as ordered 6. Continue IV abx- Await blood cultures, narrow coverage once reviewed 7. Repeat CBC and CMP in AM Clinical Quality Measures DVT/VTE Risk/Contraindication: Risk Factor Score Per Nursin RFS Level Per Nursing on Admit: 4+=Very High ANH GABRIEL DO 01/25/20 0448: History of Present Illness HPI/Chief Complaint CC: Confusion and found atrocious living conditions HPI: This is an 79yoWF who presented with altered mental status found to have atrocious living conditions with poor hygiene. CT scan showed pericardial effusion and pleural effusion with cellulitis so she was admitted and provided supportive care and she is unable to carry on a conversation, she will need placement. Past Yqnrwpv-Whmosw-Dnniaa Hx Past Med/Social Hx: Reviewed Nursing Past Med/Soc Hx, Reviewed and Corrections made Patient Social History Marrital Status: single (lives at home alone) Past Medical History Neurological: Dementia Review of Systems Constitutional: see HPI Physical Exam Physical Exam General Appearance: No Apparent Distress, Chronically ill, Obese Respiratory: Lungs Clear Cardiovascular: Regular Rate, Rhythm Neurologic/Psychiatric: Alert, Depressed Affect, Disoriented (Disoriented to person, place, and time) Assessment/Plan Admission Diagnosis Hypothyroidism new? TSH 62 Confusion Dementia Poor living conditions Start low dose thyroid SW consult ABx Admission Status: Inpatient Order (span 2 midnights) Reason for Inpatient Admission: severe confusion with lab anl and infectious source Supervisory-Addendum Brief Verification & Attestation Participated in pt care: history, MDM, physical Personally performed: exam, history, MDM, supervision of care Care discussed with: Medical Student Procedures: n/a Results interpretation: Verified all documentation Verification and Attestation of Medical Student E/M Service A medical student performed and documented this service in my presence. I reviewed and verified all information documented by the medical student and made modifications to such information, when appropriate. I personally performed the physical exam and medical decision making. Anh Gabriel, Jan 25, 2020,04:48 KAREN BROWN MED STUDENT Jan 24, 2020 11:21 ANH GABRIEL DO Jan 25, 2020 04:48
[2020-01-24 12:00] VITALS: BP 137/70
[2020-01-24] MEDS: ENOXAPARIN 40 MG/0.4 ML (LOVENOX) SYR SC SCH (12:47)
[2020-01-24] MEDS ORDERED: CAND32TA8 PO (14:13)
[2020-01-24] MEDS ORDERED: ESCI10TA PO (14:14)
[2020-01-24] MEDS ORDERED: DONE10TA41 PO (14:14)
--- NOTE | 2020-01-24 14:33 | NUR ---
WENT TO SPEAK WITH THE PT UNFORTUNATELY SHE WAS NOT ABLE TO TELL ME ABOUT HER MEDICATIONS. I ASKED HER IF THERE WAS A FAMILY MEMBER OR FRIEND THAT HELPED HER WITH HER MEDICATIONS AND SHE WAS NOT ABLE TO GIVE ME ANY INFORMATION. I REACHED OUT TO HER DAUGHTER (EMILEE), CALLED DR. BRAVO OFFICE AND CALLED [facility] TO COMPLETE THE MED REC WHEN I SPOKE WITH EMILEE SHE TOLD ME THE PT WAS ON MEDICATIONS FOR HER MEMORY, DEPRESSION, BLOOD PRESSURE AND A CANCER MEDICATIONS. THE FOLLOWING ARE THE ONLY MEDS [facility] HAVE FILLED SINCE JULY 2019 11-12-2019 CANDESARTAN 32MG #90/90DS 01-08-2020 ESCITALOPRAM 10MG #90/90DS 01-08-2020 DONEPEZIL 10MG #90/90DS ON 07-15-2019 DR. BRAVO OFFICE SENT OVER AN ORDER FOR THE NAMENDA TITRATION PACK AND NAMENDA 10MG HOWEVER THE PT HAS NEVER PICKED THESE UP. DR. BRAVO OFFICE HAS THE FOLLOWING MEDS LISTED HOWEVER PT HAS NOT FILLED THEM IN OVER 6 MONTHS: LEVOTHYROXINE 100MCG LETROZOLE 2.5MG ADVAIR 250/50 SPIRIVA OXAZEPAM
--- NOTE | 2020-01-24 14:49 | NUR ---
"RD ASSESSMENT PMHx: dementia; COPD; hypercholesterolemia; HTN; chronic constipation; hypothyroidism; DM; PT INTERACTION: Pt was awake and pleasant during nutrition assessment. Note pt has hx of dementia, per chart review. Pt states current appetite is good. Note PO intake 100% x1meal, per chart review. Pt states following a regular diet at home, and has some issues with chewing/swallowing. Pt did not elaborate when redirected. Pt states some recent issues with diarrhea, and was unsure of her last BM. Note pt not currently on bowel regimen, per chart review. Pt states recent wt loss, but is unsure of amount/timeframe. Note unable to determine recent wt hx, per chart review. Pt states current DM management is good, but was unsure of recent blood glucose levels. Note unable to determine recent HbA1c, per chart review. ABNORMAL NUTRITION-RELATED LAB VALUES LOW: K 3.5; Ca 8.4; HIGH: BUN 23; bili 1.7; AST 80; Est. kcal needs: 6663-2199 kcal | 20-25 kcal/kg Est. Pro needs: 60-75 g Pro | 0.8-1.0 g Pro/kg PES STATEMENT: Given current appetite and PO intake, no nutrition diagnosis at this time (NO-1.1). INTERVENTION: Continue with current diet order of 2000mg Na diet. Pt may benefit from consistent CHO restriction if blood glucose levels become elevated. DC current supplementation order of Ensure Enlive with meals TID. Pt consuming 100% of meals at this time. Did not offer diet education on DM management due to AMS. May attempt to offer when pt is more lucid prior to discharge. Will continue to follow and reassess as pt needs, intake, and status change. Annie Rajput, MS RD LD"
--- NOTE | 2020-01-24 15:04 | NUR ---
Pt is [employer]. Tobacco Flavorer provided prayer and Communion.
[2020-01-24 16:26] VITALS: BP 133/62
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
[2020-01-24] MEDS: NS IV 1000 ML 1,000 ML IV SCH (17:40)
[2020-01-24 21:00] VITALS: BP 142/69
[2020-01-25] VITALS (7 sets, daily range): BP systolic 128–161; BP diastolic 60–76
[2020-01-25] MEDS: CEFEPIME 1,000 MG/SWFI 10 ML IV PUSH IV SCH ×6 (03:01→20:58)
[2020-01-25 06:03] LABS: BASOPHILS # (AUTO) 0.1 10^3/uL (0.0-0.1); BASOPHILS % (AUTO) 1 % (0-10); EOSINOPHILS # (AUTO) 0.3 10^3/uL (0.0-0.3); EOSINOPHILS % (AUTO) 3 % (0-10); HEMATOCRIT 36 % (35-52); HEMOGLOBIN 11.9 g/dL (11.5-16.0); LYMPHOCYTES # (AUTO) 1.2 10^3/uL (1.0-4.0); LYMPHOCYTES % (AUTO) 12 % (12-44); MEAN CORPUSCULAR HEMOGLOBIN 34 pg (25-34); MEAN CORPUSCULAR HGB CONC 33 g/dL (32-36); MEAN CORPUSCULAR VOLUME 103 fL (80-99); MEAN PLATELET VOLUME 10.2 fL (9.0-12.2); MONOCYTES # (AUTO) 0.7 10^3/uL (0.0-1.0); MONOCYTES % (AUTO) 7 % (0-12); NEUTROPHILS # (AUTO) 7.6 10^3/uL (1.8-7.8); NEUTROPHILS % (AUTO) 77 % (42-75); PLATELET COUNT 228 10^3/uL (130-400); WHITE BLOOD COUNT 9.9 10^3/uL (4.3-11.0)
[2020-01-25] MEDS: LEVOTHYROXINE 25 MCG (LEVOTHROID) TAB PO SCH (06:11)
[2020-01-25 06:17] LABS: ALBUMIN 3.5 GM/DL (3.2-4.5); POTASSIUM 3.4 MMOL/L (3.6-5.0)
[2020-01-25 06:18] LABS: CALCIUM 7.7 MG/DL (8.5-10.1)
[2020-01-25 06:19] LABS: TOTAL PROTEIN 5.9 GM/DL (6.4-8.2)
[2020-01-25 06:21] LABS: BILIRUBIN,TOTAL 0.8 MG/DL (0.1-1.0)
[2020-01-25 06:23] LABS: CREATININE SERUM 1.35 MG/DL (0.60-1.30)
[2020-01-25] MEDS ORDERED: VANCOMYCIN 1500 MG/NS 500 ML IVPB IV NR ×2 (08:15)
[2020-01-25] MEDS ORDERED: VANCOMYCIN INJECTION 0.1 MG in NS (IVPB) 250 ML IV SCH (08:15)
[2020-01-25] MEDS: meTOprolol TARTRATE 50 MG (LOPRESSOR) TAB PO SCH ×2 (09:00→21:48)
[2020-01-25] MEDS: NYSTATIN CREAM (MYCOSTATIN) 30 GM TUBE TP SCH ×2 (09:30→21:49)
--- NOTE | 2020-01-25 09:54 | Physical Therapy Evaluation ---
PT Evaluation-General Medical Diagnosis Admission Date Jan 23, 2020 at 20:19 Medical Diagnosis: pericardial effusion/bilateral pleural effusion/cellulitis Onset Date: Jan 23, 2020 Therapy Diagnosis Therapy Diagnosis: debility/weakness Height/Weight Height (Feet): 4 Height (Inches): 11.00 Weight (Pounds): 176 Weight (Ounces): 0.0 Precautions Precautions/Isolations: Fall Prevention, Standard Precautions Referral Physician: Lucie Reason for Referral: Evaluation/Treatment Medical History Pertinent Medical History: Back Injury, COPD (home O2), DM, Dementia, HTN, Hypothroidism Current History EMS secondary to fall Reviewed History: Yes Social History Home: Single Level Current Living Status: Alone (family checks in on her) Prior Prior Level of Function SCALE: Activities may be completed with or without assistive devices. 1-Zjpcflkmin-mjcuxhx completes the activity by him/herself with no assistance from a helper. 5-Set-up or Clean-up Assistance-helper sets up or cleans up; patient completes activity. Gravel Switch assists only prior to or following the activity. 4-Supervision or Touching Assistance-helper provides verbal cues and/or touching/steadying and/or contact guard assistance as patient completes activity. Assistance may be provided throughout the activity or intermittently. 3-Partial/Moderate Assistance-helper does LESS THAN HALF the effort. Gravel Switch lifts, holds or supports trunk or limbs, but provides less than half the effort. 2-Substantial/Maximal Assistance-helper does MORE THAN HALF the effort. Gravel Switch lifts or holds trunk or limbs and provides more than half the effort. 1-Xacetjvws-nremul does ALL the effort. Patient does none of the effort to c omplete the activity. Or, the assistance of 2 or more helpers is required for the patient to complete the activity. If activity was not attempted, code reason: 7-Patient Refused. 9-Not Applicable-not attempted and the patient did not perform the activity before the current illness, exacerbation or injury. 10-Not Attempted due to Environmental Limitations-(lack of equipment, weather restraints, etc.). 88-Not Attempted due to Medical Conditions or Safety Concerns. Bed Mobility: 6 Transfers (B,C,W/C): 6 Gait: 6 Indoor Mobility (Ambulation): Independent Prior Devices Use: None PT Evaluation-Current Subjective Patient looks at PT and does not respond to verbal cues/questions. Objective Patient Orientation: Confused ROM/Strength ROM Lower Extremities bilateral LE WFL Strength Lower Extremities grossly 3+/5 bilaterally Integumentary/Posture Integumentary noted gluteal pressure wound Bowel Incontinence: Yes Bladder Incontinence: Yes Posture WFL Neuromuscular (Tone, Coordination, Reflexes) grossly intact Sensory Vision: Functional Hearing: Functional Transfers Roll Left to Right (QC): 2 Lying to Sitting/Side of Bed(Q: 2 Sit to Stand (QC): 3 Chair/Wrv-lx-Emllg Xfer(QC): 3 Toilet Transfer (QC): 3 patient is impulsive to stand from toilet and unable to follow simple direction for safety (chair alarm placed in recliner) Gait Does the Patient Walk?: Yes Mode of Locomotion: Walk Anticipated Mode of Locomotion: Walk Walk 10 feet (QC): 3 Walk 50 ft with 2 Turns(QC): 3 Walk 150 ft (QC): 88 Gait Assistive Device: FWW Balance Sitting Static: Normal Sitting Dynamic: Normal Standing Static: Fair Standing Dynamic: Fair Treatment assisted nursing with shower due to patient is unaware of safety concerns and is impulsive to stand on slick surfaces. Assessment/Needs 79 y.o. female, will benefit from skilled PT to address functional strength and mobility to improve current LOF. From a PT standpoint, patient would benefit from jail facility due to inability to care for self and safety concerns with mobility. Rehab Potential: Fair PT Power Brake Rebuilder Goals Power Brake Rebuilder Goals PT Power Brake Rebuilder Goals Time Frame: Feb 05, 2020 Roll Left & Right (QC): 5 Sit to Lying (QC): 5 Lying-Sitting on Side/Bed(QC): 5 Sit to Stand (QC): 5 Chair/Zvu-ra-Kkztg Xfer(QC): 5 Toilet Transfer (QC): 5 Walk 10 feet (QC): 4 Walk 50ft with 2 Turns (QC): 4 Walk 150 ft (QC): 4 PT Plan Problem List Problem List: Activity Tolerance, Functional Strength, Safety, Balance, Gait, Transfer, Bed Mobility Treatment/Plan Treatment Plan: Continue Plan of Care Treatment Plan: Bed Mobility, Education, Functional Activity Marlen, Functional Strength, Gait, Safety, Therapeutic Exercise, Transfers Treatment Duration: Feb 05, 2020 Frequency: 6 times per week Estimated Hrs Per Day: .25 hour per day Time/GCodes Time In: 918 Time Out: 942 Total Billed Treatment Time: 24 Total Billed Treatment 1 visit EVModC 10 min FA 14 min JOSE CALDWELL PT Jan 25, 2020 09:54
--- NOTE | 2020-01-25 10:43 | Progress Note - Hospitalist ---
KAREN BROWN MED STUDENT 01/25/20 1043: Subjective HPI/CC On Admission Date Seen by Provider: Jan 25, 2020 Time Seen by Provider: 08:45 CC: Confusion and found atrocious living conditions HPI: This is an 79yoWF who presented with altered mental status found to have atrocious living conditions with poor hygiene. CT scan showed pericardial effusion and pleural effusion with cellulitis so she was admitted and provided supportive care and she is unable to carry on a conversation, she will need pl acement. Subjective/Events-last exam Patient asked multiple questions this morning and was not answering appropriately in any capacity. She is alert, sitting up in bed eating oatmeal this morning upon exam. She responded "No" to are you having any pain? She is not answering any other questions. Nurse reports she thinks she's doing better today. Review of Systems General: Other (unable to assess due to patient condition) HEENT: Other (unable to obtain) Cardiovascular: Other (unable to obtain) Gastrointestinal: Other (unable to obtain) Genitourinary: Other (unable to obtain) Neurological: Other (unable to obtain) Focused Exam Lactate Level 01/23/20 19:00: Lactic Acid Level 2.36*H 01/23/20 21:20: Lactic Acid Level 2.00 Objective Exam Vital Signs Vital Signs Date Time Temp Pulse Resp B/P (MAP) Pulse Ox O2 Delivery O2 Flow Rate FiO2 01/25/20 09:20 Nasal Cannula 2.00 01/25/20 08:00 36.9 53 16 151/71 (97) 97 Capillary Refill : Less Than 3 Seconds General Appearance: No Apparent Distress, WD/WN HEENT: PERRL/EOMI, Pharynx Normal Neck: Normal Inspection, Non Tender Respiratory: Chest Non Tender, Lungs Clear, Normal Breath Sounds, No Accessory Muscle Use; No Crackles, No Rhonci, No Stridor, No Wheezing Cardiovascular: Regular Rate, Rhythm, Normal Peripheral Pulses, Bradycardia (HR 50) Gastrointestinal: Normal Bowel Sounds, Non Tender, Soft; No Distended Rectal: Deferred Back: Normal Inspection, No Vertebral Tenderness Extremity: Normal Capillary Refill, No Pedal Edema Neurologic/Psychiatric: Alert, Disoriented, Other (demented) Skin: Normal Color, Warm/Dry, Damp (Bilat breast fold and abd fold erythematous and moist/likely intertrigo), Other (skin over sacrum is erythematous, skin does tomeka) Lymphatic: No Adenopathy Results/Procedures Lab Laboratory Tests 01/25/20 05:37 01/25/20 05:39 Patient resulted labs reviewed. Assessment/Plan Assessment and Plan Assess & Plan/Chief Complaint Fall Pericardial effusion Bilateral pleural effusions Markedly elevated TSH- Hypothyroidism Elevated LFT's Intertrigo- beneath breasts bilat and abdominal pannus fold COPD- 02 at home HTN HLP Diabetes mellitus Dementia 1. Fall precautions 2. Continue oxygen- titrate to keep sat >90 3. Restart home medications 4. Address elevated TSH level- levothyroxine started 5. Continue gentle IVF maintenance as ordered 6. Continue IV abx- vancomycin added today 7. Repeat CBC and CMP in AM 8. Up to bedside chair TID Clinical Quality Measures DVT/VTE Risk/Contraindication: Risk Factor Score Per Nursin RFS Level Per Nursing on Admit: 4+=Very High ANH GABRIEL DO 01/26/20 0548: Subjective Subjective/Events-last exam Pt talking a little more Started on Thyroid All of this could likely be due to hypothyroidism along with her dementia from noncompliance with medications Coag negative Staff in blood cultures so sent that off for sensitivity and dosed her with Vanc today Maintained on Cefepime for broad-spectrum antibiotic coverage also Cellulitis of the skin will be monitored Review of Systems General: Fatigue, Malaise Neurological: Confusion Objective Exam General Appearance: No Apparent Distress, WD/WN, Chronically ill Respiratory: Lungs Clear Cardiovascular: Regular Rate, Rhythm Neurologic/Psychiatric: Alert, Oriented x3, Depressed Affect, Disoriented Assessment/Plan Assessment and Plan Assess & Plan/Chief Complaint IV abx Thyroid PT OT NH at NH Supervisory-Addendum Brief Verification & Attestation Participated in pt care: history, MDM, physical Personally performed: exam, history, MDM, supervision of care Care discussed with: Medical Student Procedures: n/a Results interpretation: Verified all documentation Verification and Attestation of Medical Student E/M Service A medical student performed and documented this service in my presence. I reviewed and verified all information documented by the medical student and made modifications to such information, when appropriate. I personally performed the physical exam and medical decision making. Anh Gabriel, Jan 26, 2020,05:47 KAREN BROWN MED STUDENT Jan 25, 2020 10:43 ANH GABRIEL DO Jan 26, 2020 05:48
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
[2020-01-25] MEDS: ENOXAPARIN 40 MG/0.4 ML (LOVENOX) SYR SC SCH (12:53)
[2020-01-25] MEDS: NS IV 1000 ML 1,000 ML IV SCH ×2 (14:00→21:48)
--- NOTE | 2020-01-25 14:11 | Occupational Therapy Eval ---
OT Evaluation-General/PLF Medical Diagnosis Admission Date Jan 23, 2020 at 20:19 Medical Diagnosis: pericardial effusion/bilateral pleural effusion/cellulitis Onset Date: Jan 23, 2020 Therapy Diagnosis Therapy Diagnosis: Decreased ADL status Height/Weight Height (Feet): 4 Height (Inches): 11.00 Weight (Pounds): 176 Weight (Ounces): 0.0 Precautions Precautions/Isolations: Fall Prevention, Standard Precautions Referral Physician: Lucie Referral Reason: Activity Tolerance, Self Care, Evaluation/Treatment, Strengthening/ROM Medical History Pertinent Medical History: Back Injury, COPD (home O2), DM, Dementia, HTN, Hypothroidism Additional Medical History hx of dementia, COPD, arthritis, anx/ depression Current History Brought to ED via EMS after unwitnessed fall at home. Reviewed History: Yes Social History Home: Single Level Current Living Status: Alone (family checks in on her) ADL-Prior Level of Function SCALE: Activities may be completed with or without assistive devices. 1-Vpnfatbwdm-ykgilxz completes the activity by him/herself with no assistance from a helper. 5-Set-up or Clean-up Assistance-helper sets up or cleans up; patient completes activity. Monroe assists only prior to or following the activity. 4-Supervision or Touching Assistance-helper provides verbal cues and/or touching/steadying and/or contact guard assistance as patient completes activity. Assistance may be provided throughout the activity or intermittently. 3-Partial/Moderate Assistance-helper does LESS THAN HALF the effort. Monroe lifts, holds or supports trunk or limbs, but provides less than half the effort. 2-Substantial/Maximal Assistance-helper does MORE THAN HALF the effort. Monroe lifts or holds trunk or limbs and provides more than half the effort. 1-Nksfonhcu-cigpzt does ALL the effort. Patient does none of the effort to complete the activity. Or, the assistance of 2 or more helpers is required for the patient to complete the activity. If activity was not attempted, code reason: 7-Patient Refused. 9-Not Applicable-not attempted and the patient did not perform the activity before the current illness, exacerbation or injury. 10-Not Attempted due to Environmental Limitations-(lack of equipment, weather restraints, etc.). 88-Not Attempted due to Medical Conditions or Safety Concerns. ADL PLOF Comments Based on pt's prior living situation, pt was able to complete ADL tasks on own. Pt continues to be somewhat confused/ does not respond to questions at times, therefore, full PLOF not gathered. Self Care: Independent DME/Equipment Comments SPC Occupation: unemployed OT Current Status Subjective Pt in recliner eating. Pt looks at OT, does not respond when spoken to. Pt req uires increased trials and volume for pt's attention. Pt continues to eat, requires OT to ask questions mutliple times and continues to not answer. Pt agrees to allow OT to remove tray/ bring back once completed with eval. Pt denies pain. Mental Status/Objective Patient Orientation: Confused Attachments: IV, Oxygen Current Glasses/Contacts: Yes Hearing Aids: No Hand Dominance: Right Upper Extremity ROM WFL (pt completes tasks WFL with BUE, though unable to follow cues for ROM/ MMT screening.) ADL-Treatment Eating (QC): 6 (pt eating without difficulty, utilizes R for utensil manipulation and L for finger foods.) Toileting Hygiene (QC): 2 (max A bottom hygiene) Other Treatments Pt in reclienr. Pt responds to minimal questions (see above). Once tray removed, pt agrees to stand. Completes with CGA. Pt stands for ~1 min, returns to sit. Pt requires increased cues for direction. Pt's jose soiled. Pt stands and bottom is cleansed and ointment applied to reddened bottom (slight wound noted). Pt returns to sit on clean jose. Pt requires Ax2 to bring bottom to back of chair. Pt left with food in front of pt, blanket on, all needs met, call light in reach. Education OT Patient Education: Correct positioning, Purpose of tx/functional activities, Safety issues, Transfer techniques Teaching Recipient: Patient Teaching Methods: Demonstration, Discussion Response to Teaching: Verbalize Understanding, Unable to Comprehend, Reinforcement Needed OT Rehabilitation Team Lead Goals Rehabilitation Team Lead Goals Time Frame: Feb 01, 2020 Eating (QC): 6 Oral Hygiene (QC): 6 Toileting Hygiene (QC): 6 Shower/Bathe Self (QC): 6 Upper Body Dressing (QC): 6 Lower Body Dressing (QC): 6 On/Off Footwear (QC): 6 Additional Goals: 1-Demonstrate ADL Tasks, 2-Verbalize Understanding, 3- ImproveStrength/Marlen 1=Demonstrate adherence to instructed precautions during ADL tasks. 2=Patient will verbalize/demonstrate understanding of assistive devices/modifications for ADL. 3=Patient will improve strength/tolerance for activity to enable patient to perform ADL's. OT Education/Plan Problem List/Assessment Assessment: Decreased Activ Tolerance, Decreased Safety Aware, Decreased UE Strength, Dependent Transfers, Impaired Bed Mobility, Impaired Cognition, Impaired Funct Balance, Impaired I ADL's, Impaired Self-Care Skills Discharge Recommendations Plan/Recommendations: Continue POC Therapy Discharge Recommendati: 24 Hour Supervision, Post Acute OT Treatment Plan/Plan of Care Treatment,Training & Education: Yes Patient would benefit from OT for education, treatment and training to promote independence in ADL's, mobility, safety and/or upper extremity function for A DL's. Plan of Care: ADL Retraining, Cognitive Retraining, Functional Mobility, UE Funct Exercise/Act Treatment Duration: Feb 01, 2020 Frequency: 5 times per week Estimated Hrs Per Day: .25 hour per day Agreement: Yes Rehab Potential: Fair Time/GCodes Start Time: 13:13 Stop Time: 13:26 Total Time Billed (hr/min): 13 Billed Treatment Time OLVIN Sauceda (13) JOSE ELIAS EASLEY OTR Jan 25, 2020 14:11
[2020-01-26 00:16] VITALS: BP 158/76
[2020-01-26 04:00] VITALS: BP 169/71
[2020-01-26] MEDS: CEFEPIME 1,000 MG/SWFI 10 ML IV PUSH IV SCH ×4 (05:18→12:37)
[2020-01-26] MEDS: LEVOTHYROXINE 25 MCG (LEVOTHROID) TAB PO SCH (06:30)
[2020-01-26 07:07] LABS: BASOPHILS # (AUTO) 0.1 10^3/uL (0.0-0.1); BASOPHILS % (AUTO) 1 % (0-10); EOSINOPHILS # (AUTO) 0.3 10^3/uL (0.0-0.3); EOSINOPHILS % (AUTO) 5 % (0-10); HEMATOCRIT 32 % (35-52); HEMOGLOBIN 10.5 g/dL (11.5-16.0); LYMPHOCYTES # (AUTO) 0.9 10^3/uL (1.0-4.0); LYMPHOCYTES % (AUTO) 14 % (12-44); MEAN CORPUSCULAR HEMOGLOBIN 34 pg (25-34); MEAN CORPUSCULAR HGB CONC 33 g/dL (32-36); MEAN CORPUSCULAR VOLUME 104 fL (80-99); MONOCYTES # (AUTO) 0.5 10^3/uL (0.0-1.0); MONOCYTES % (AUTO) 8 % (0-12); NEUTROPHILS # (AUTO) 4.8 10^3/uL (1.8-7.8); NEUTROPHILS % (AUTO) 72 % (42-75); PLATELET COUNT 207 10^3/uL (130-400); WHITE BLOOD COUNT 6.7 10^3/uL (4.3-11.0)
[2020-01-26 07:17] LABS: ALBUMIN 3.3 GM/DL (3.2-4.5); POTASSIUM 3.4 MMOL/L (3.6-5.0)
[2020-01-26 07:18] LABS: CALCIUM 7.5 MG/DL (8.5-10.1)
[2020-01-26 07:20] LABS: TOTAL PROTEIN 5.4 GM/DL (6.4-8.2)
[2020-01-26 07:22] LABS: BILIRUBIN,TOTAL 0.6 MG/DL (0.1-1.0)
[2020-01-26 07:24] LABS: CREATININE SERUM 1.21 MG/DL (0.60-1.30)
[2020-01-26 07:25] LABS: SMEAR SCAN COMMENT YES
[2020-01-26] MEDS ORDERED: VANCOMYCIN 1 GM/NS 250 ML IVPB IV SCH ×2 (08:00)
[2020-01-26 08:03] VITALS: BP_SYST 152; BP_SYST 175; BP_DIAS 78; BP_DIAS 83
[2020-01-26] MEDS: NYSTATIN CREAM (MYCOSTATIN) 30 GM TUBE TP SCH (08:46)
[2020-01-26] MEDS: meTOprolol TARTRATE 50 MG (LOPRESSOR) TAB PO SCH (09:00)
[2020-01-26] MEDS ORDERED: LEVO25TA5 PO (11:27)
[2020-01-26] MEDS ORDERED: ENOX40DI8 SC (11:27)
[2020-01-26] MEDS ORDERED: NYST15CR TP (11:27)
[2020-01-26] MEDS ORDERED: METO50TA15 PO (11:27)
[2020-01-26] MEDS ORDERED: LEVO750T39 PO (11:27)
--- NOTE | 2020-01-26 11:29 | Discharge Summary ---
Discharge Summary Hospital Course Was the Problem List Reviewed?: Yes Problems/Dx: (1) Hypothyroidism (2) TSH elevation (3) Cellulitis Status: Acute (4) Pericardial effusion Status: Acute (5) Bilateral pleural effusion Status: Acute (6) Memory difficulties Status: Acute Hospital Course Date of Admission: Jan 23, 2020 at 20:19 Admission Diagnosis : Family Physician/Provider: Date of Discharge: 01/26/20 Discharge Diagnosis: cellulitis, bacteremia, severe hypothyroidism, pleural effusions, pericardial effusions, dementia Hospital Course: Hospital Course: Pt had a standard hospital course, she was admitted for cellulitis and UTI. Blood cultures all grew out, acinetobacter and staph methicillin sensitive. She was placed on Omnicef to complete that treatment. Pleural effusions and pericardial effusions were just slight. She was able to be discharged to a alf after being placed on Synthroid actually improving her status along with Nystatin cream and powder for the yeast in her skin folds. Labs and Pending Lab Test: Laboratory Tests 01/25/20 12:55: Coronavirus 2019 ([facility]ACINTO) Negative 01/26/20 06:36: White Blood Count 6.7, Red Blood Count 3.09L, Hemoglobin 10.5L, Hematocrit 32L, Mean Corpuscular Volume 104H, Mean Corpuscular Hemoglobin 34, Mean Corpuscular Hemoglobin Concent 33, Red Cell Distribution Width 14.0, Platelet Count 207, M ryan Platelet Volume 10.0, Immature Granulocyte % (Auto) 0, Neutrophils (%) (Auto) 72, Lymphocytes (%) (Auto) 14, Monocytes (%) (Auto) 8, Eosinophils (%) (Auto) 5, Basophils (%) (Auto) 1, Neutrophils # (Auto) 4.8, Lymphocytes # (Auto) 0.9L, Monocytes # (Auto) 0.5, Eosinophils # (Auto) 0.3, Basophils # (Auto) 0.1, Immature Granulocyte # (Auto) 0.0, Sodium Level 141, Potassium Level 3.4L, Chloride Level 106, Carbon Dioxide Level 26, Anion Gap 9, Blood Urea Nitrogen 27H, Creatinine 1.21, Estimat Glomerular Filtration Rate 43, BUN/Creatinine Ratio 22, Glucose Level 81, Calcium Level 7.5L, Corrected Calcium 8.1L, Total Bilirubin 0.6, Aspartate Amino Transf (AST/SGOT) 41H, Alanine Aminotransferase (ALT/SGPT) 23, Alkaline Phosphatase 48, Total Protein 5.4L, Albumin 3.3, Smear Scan YES Microbiology 01/23/20 Blood Culture - Preliminary, Resulted Staphylococcus haemolyticus See Comments Home Meds Active Levofloxacin 750 Mg Tablet 750 Mg PO Q48H Next dose Friday morning then every other day until gone Nystatin 15 Gm Cream..g. 0 Gm TP BID 30 Days Levothyroxine Sodium 25 Mcg Tablet 25 Mcg PO DAILY@0630 365 Days Metoprolol Tartrate 50 Mg Tablet 50 Mg PO BID 30 Days Enoxaparin Sodium 40 Mg/0.4 Ml Syringe 40 Mg SC DAILY@1200 14 Days Reported Lexapro (Escitalopram Oxalate) 10 Mg Tablet 10 Mg PO DAILY Donepezil HCl 10 Mg Tablet 10 Mg PO HS Candesartan Cilexetil 32 Mg Tablet 32 Mg PO DAILY Assessment/Pt Instructions Due to bed availability in the hospital related to COVID-19 surge the above mentioned member/patient is appropriate and in need of longterm home placement to continue skilled therapies. Discharge Planning: <30 minutes discharge planning Discharge Instructions Discharge Diet: No Restrictions Discharge Physical Examination Vital Signs Vital Signs Date Time Temp Pulse Resp B/P (MAP) Pulse Ox O2 Delivery O2 Flow Rate FiO2 01/26/20 08:57 52 01/26/20 08:03 36.6 20 152/83 (106) 97 Nasal Cannula 2.00 General Appearance: No Apparent Distress, WD/WN, Chronically ill, Obese Respiratory: Lungs Clear Cardiovascular: Regular Rate, Rhythm Neurologic/Psychiatric: Alert, Depressed Affect, Disoriented Allergies: Coded Allergies: Sulfa (Sulfonamide Antibiotics) (Unverified Allergy, Mild, HIVES, 04/21/05) codeine (Unverified Allergy, Mild, NAUSEA, 04/21/05) atorvastatin (Verified Allergy, Unknown, 04/21/05) cephalexin (Unverified Allergy, Unknown, PT HAS REC ROCEPHIN,CEFTIN & AUGMENTIN IN PAST, 12/19/11) PER DR. WASSERMAN'S OFFICE PT HAS RECEIVED ROCEPHIN, CEFTIN, AND AUGMENTIN IN PAST WITHOUT PROBLEMS doxycycline (Verified Allergy, Unknown, 04/21/05) gatifloxacin (Verified Allergy, Unknown, 04/21/05) grepafloxacin (Verified Allergy, Unknown, 04/21/05) indapamide (Unverified Allergy, Unknown, 11/21/14) penbutolol (Verified Allergy, Unknown, 04/21/05) sulfamethoxazole (Verified Allergy, Unknown, 04/21/05) trimethoprim (Verified Allergy, Unknown, 04/21/05) Discharge Summary Date of Admission Jan 23, 2020 at 20:19 Date of Discharge Discharge Date: Jan 26, 2020 Admission Diagnosis Hypothyroidism new? TSH 62 Confusion Dementia Poor living conditions Start low dose thyroid SW consult ABx Discharge Diagnosis IV abx Thyroid PT OT NH at [facility] Clinical Quality Measures DVT/VTE Risk/Contraindication: Risk Factor Score Per Nursin RFS Level Per Nursing on Admit: 4+=Very High KATHERIN GABRIEL DO Jan 26, 2020 11:29
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
--- NOTE | 2020-01-26 11:46 | Progress Note ---
KAREN BROWN MED STUDENT 01/26/20 1146: Progress Note Hospital Course: Kari acevedo is an 79 year old demented white female who was admitted on January 22 after sustaining a fall at home. PMH significant for dementia, HLP, HTN, COPD, and Diabetes mellitus. She resides at home alone and was found down covered in urine and feces, unknown how long she was down for. Several of her kids check in on her from time to time. EMS brought her to the ED. In the ED she was found to have bruising on her forehead above her left orbit, skin breakdown/yeast infection of bilateral breast folds and abdominal pannus, and an elevated lactic of 2.3. She was given a 250cc bolus of fluids in the ED and started on Cefepime. CT head and C spine was negative for any acute injury. Was significant for a moderate right sided pleural effusion. CT abd/pelivs showed a smaller left sided pleural effusion, extensive colonic diverticulosis, cholelithiasis, and a pericardial effusion. She was admitted to the floor under the care of the hospitalist service. Labs revealed a WBC of 12.1, AST of 80, and a TSH of 62. She was started on cefepime, vancomycin, nystatin, and synthroid was started given her elevated TSH. Blood cultures were positive for coagulase n egative staph. The entire stay she has been verbally responsive minimally and disoriented to person, place, and time. VSS hospital course. She is being discharged to [facility] in [place] today. ANH GABRIEL DO 01/27/20 0542: Supervisory-Addendum Brief Verification & Attestation Participated in pt care: history, MDM, physical Personally performed: exam, history, MDM, supervision of care Care discussed with: Medical Student Procedures: n/a Results interpretation: Verified all documentation Verification and Attestation of Medical Student E/M Service A medical student performed and documented this service in my presence. I reviewed and verified all information documented by the medical student and made modifications to such information, when appropriate. I personally performed the physical exam and medical decision making. Anh Gabriel, Jan 27, 2020,05:42 KAREN BROWN MED STUDENT Jan 26, 2020 11:46 ANH GABRIEL DO Jan 27, 2020 05:42
[2020-01-26] MEDS: ENOXAPARIN 40 MG/0.4 ML (LOVENOX) SYR SC SCH (12:37)
--- NOTE | 2020-01-26 12:39 | NUR ---
LISSA/MUSA finalized discharge. Plan: Patient will discharge to [facility] skilled today at 1:00 p.m. CM/SS sent finalized skilled discharge and negative Covid test results to Yazmin. Medicare waiver in pace, "Due to the bed availability in the hospital related to COVID-19 surge the above mentioned member/patient is appropriate and in need of alf home placement to continue skilled therapies". Family: LISSA/MUSA was notified that Lurdes is not the medical power of prosecuting attorney. Lurdes is the financial power of prosecuting attorney but not for health care. Karen contacted this sw and stated that she was on her way to the hospital to help the patient fill out DPOA paper work. LISSA/MUSA informed her that the patient cannot fill out the DPOA paper work due to not being oriented x4. She stated that she would need it done for the facility. LISSA/SS contacted Yazmin at the facility to discuss this. Yazmin states that has never had a patient not have a DPOA and this complex of a family dynamic. LISSA/MUSA visited with the patient. She is oriented x1 today. She is not capable of completing a Durable Power of Hand Chain Maker at this time. LISSA/MUSA had Yazmin on the phone and asked the patient who she is willing to have sign her admission papers. She stated she wanted her daughter Karen to fill them out. LISSA/MUSA informed Lurdes and Karen of this answer. They both verbalized understanding. Yazmin verified that she heard the same response. Yazmin stated she is good with having Karen sign the admission paper work since she witnesses (heard) her saying it. No further needs at this time.
[2020-01-26 13:01] VITALS: BP 152/83
--- NOTE | 2020-01-26 16:47 | NUR ---
PT DISCHARGE MEDICATIONS CHANGED FROM LEVAQUIN TO OMNICEF 300MG BID X4 DAYS PER DR GABRIEL D/T PATIENTS ALLERGY LIST. [facility] [place] NOTIFIED
[2020-01-27] MEDS ORDERED: TROUGH ORDER-PHARMACY XX NR (07:00)
== END 2020-01-26 13:01 ==
LOC: ER 17:32 → EDUNIT# 17:32 → 4TH 20:19 → EDLOC 20:19 → INTOOBSV 20:19 → 4TH 01-25 13:37
PROVIDERS: ADMIT Internal Medicine; ATTEND Internal Medicine
DX: E03.9 Hypothyroidism, unspecified (principal); L03.90 Cellulitis, unspecified; I31.3 Pericardial effusion (noninflammatory); J90 Pleural effusion, not elsewhere classified; E78.00 Pure hypercholesterolemia, unspecified; I10 Essential (primary) hypertension; J44.9 Chronic obstructive pulmonary disease, unspecified; E11.9 Type 2 diabetes mellitus without complications; F41.9 Anxiety disorder, unspecified; F32.9 Major depressive disorder, single episode, unspecified; R41.3 Other amnesia; R94.6 Abnormal results of thyroid function studies; Z20.828 Contact with and (suspected) exposure to other viral communicable diseases; Z79.51 Long term (current) use of inhaled steroids; Z79.84 Long term (current) use of oral hypoglycemic drugs; Z79.899 Other long term (current) drug therapy; Z88.2 Allergy status to sulfonamides; Z88.5 Allergy status to narcotic agent; Z88.8 Allergy status to other drugs, medicaments and biological substances; Z88.1 Allergy status to other antibiotic agents; Z90.710 Acquired absence of both cervix and uterus; Z87.891 Personal history of nicotine dependence
CPT/HCPCS: 70450; 71250; 72125; 74176; 80053 ×4; 81000; 83605; 83880; 84443; 85025 ×3; 85027; 85610; 85730; 87040; 87077; 87186; 93005; 97162; 97166; 97530; 99284; G0378; G0480; U0002; 36415; 80320; 87635

== ENCOUNTER → 2020-03-10 | Outpatient (CLI) | payer MEDICARE, OTHER ==
[~2020-03-10] MED LIST changes: +CAND32TA8 PO; -CLIN300C11 PO; +CLIN300C12 PO; +DONE10TA41 PO; +ENOX40DI8 SC; +ESCI10TA PO; +LEVO25TA5 PO; +LEVO750T39 PO; +METO50TA15 PO; +NYST15CR TP
[2020-03-10 18:54] LABS: BILIRUBIN,URINE NEGATIVE (NEGATIVE); CLARITY,URINE CLEAR; COLOR,URINE YELLOW; GLUCOSE, URINE (UA) NEGATIVE (NEGATIVE); KETONES,URINE NEGATIVE (NEGATIVE); LEUKOCYTE ESTERASE ,URINE NEGATIVE (NEGATIVE); NITRITE,URINE NEGATIVE (NEGATIVE); PH,URINE 5.5 (5-9); PROTEIN,URINE NEGATIVE (NEGATIVE)
[2020-03-10 19:06] LABS: BACTERIA,URINE NEGATIVE /HPF
== END ==
LOC: LABNPT 18:49
PROVIDERS: ATTEND Internal Medicine
DX: Z01.89 Encounter for other specified special examinations (principal)
CPT/HCPCS: 81000

== ENCOUNTER → 2020-08-03 | Outpatient (CLI) | payer MEDICARE, OTHER ==
[2020-08-03 08:53] LABS: BASOPHILS # (AUTO) 0.1 10^3/uL (0.0-0.1); BASOPHILS % (AUTO) 1 % (0-10); EOSINOPHILS # (AUTO) 0.3 10^3/uL (0.0-0.3); EOSINOPHILS % (AUTO) 4 % (0-10); HEMATOCRIT 35 % (35-52); HEMOGLOBIN 11.6 g/dL (11.5-16.0); LYMPHOCYTES % (AUTO) 12 % (12-44); MEAN CORPUSCULAR HEMOGLOBIN 33 pg (25-34); MEAN CORPUSCULAR HGB CONC 33 g/dL (32-36); MEAN CORPUSCULAR VOLUME 99 fL (80-99); MEAN PLATELET VOLUME 10.3 fL (9.0-12.2); MONOCYTES # (AUTO) 0.5 10^3/uL (0.0-1.0); MONOCYTES % (AUTO) 6 % (0-12); NEUTROPHILS # (AUTO) 6.1 10^3/uL (1.8-7.8); NEUTROPHILS % (AUTO) 76 % (42-75); PLATELET COUNT 271 10^3/uL (130-400)
[2020-08-03 09:16] LABS: ALBUMIN 3.9 GM/DL (3.2-4.5); BILIRUBIN,TOTAL 0.4 MG/DL (0.1-1.0); CALCIUM 8.8 MG/DL (8.5-10.1); CREATININE SERUM 1.06 MG/DL (0.60-1.30); POTASSIUM 3.7 MMOL/L (3.6-5.0); TOTAL PROTEIN 6.5 GM/DL (6.4-8.2)
== END ==
LOC: EDSTATUS 05-24 12:03 → ONC 08:24
PROVIDERS: ATTEND Internal Medicine Hematology & Oncology
DX: C50.111 Malignant neoplasm of central portion of right female breast (principal); C73 Malignant neoplasm of thyroid gland; I89.0 Lymphedema, not elsewhere classified; F03.90 Unspecified dementia, unspecified severity, without behavioral disturbance, psychotic disturbance, mood disturbance, and anxiety; M81.0 Age-related osteoporosis without current pathological fracture; M85.80 Other specified disorders of bone density and structure, unspecified site; I13.0 Hypertensive heart and chronic kidney disease with heart failure and stage 1 through stage 4 chronic kidney disease, or unspecified chronic kidney disease; I50.9 Heart failure, unspecified; N18.9 Chronic kidney disease, unspecified; J44.9 Chronic obstructive pulmonary disease, unspecified; E78.00 Pure hypercholesterolemia, unspecified; F32.9 Major depressive disorder, single episode, unspecified; Z90.11 Acquired absence of right breast and nipple; Z98.890 Other specified postprocedural states; Z92.3 Personal history of irradiation; Z90.89 Acquired absence of other organs
CPT/HCPCS: 80053; 84443; 85025; G0463; 99213

== ENCOUNTER 2020-08-25 09:45 | Emergency (ER) | payer MEDICARE, OTHER ==
[~2020-08-25] VITALS: Ht 160 cm; Wt 72.7 kg
[2020-08-25] MEDS ORDERED: RT-ALBUTEROL/IPRATROPIUM 3 ML (DUONEB) VIAL INH ONE (10:15)
--- NOTE | 2020-08-25 10:26 | Diagnostic Imaging Report ---
INDICATION: Shortness of air. Time of exam 10:16 a.m. Correlation is made with prior chest 12/18/2018. The heart is enlarged. Lungs are clear. No infiltrates or evidence of failure is detected. No significant effusion or pneumothorax is identified. IMPRESSION: Stable chest when compared with exam from 12/18/2018. No acute feature is detected. Dictated by: Dictated on workstation # [id number]
--- NOTE | 2020-08-25 10:43 | Diagnostic Imaging Report ---
CLINICAL INDICATION: Patient was found on the floor at 0545 hours today at a residential. Patient unable to give past medical history and does not know about a fall. EXAM: Axial Head CT without IV contrast with sagittal and coronal reformations. Axial CT scan of the cervical spine with sagittal and coronal reformations. Auto Exposure Controls were utilized during the CT exam to meet ALARA standards for radiation dose reduction. COMPARISON: CT scan of the head and cervical spine without contrast dated 01/23/2020. FINDINGS: HEAD CT: Motion artifact limits evaluation of anatomical structures. There is no evidence of acute cerebral infarct, intracranial hemorrhage, or gross mass effect. The brain parenchymal volume appears appropriate for patient's age. There are subtle patchy areas of low-attenuation white matter changes involving both cerebral hemispheres, likely representing chronic small vessel ischemic disease. There is normal lloyd-white matter distinction. There is no significant midline shift or herniation. There is no evidence of hydrocephalus. The basal cisterns are unremarkable. There is interval development of a small area of extracranial soft tissue swelling involving left posterior aspect of the head. There is no skull fracture. Otherwise, the skull and extracranial soft tissue are unremarkable. Postop changes to both globes are seen, likely related to cataract surgery. Otherwise, orbits and globes are unremarkable. The paranasal sinuses are unremarkable. Temporal bones show no significant abnormality. CERVICAL SPINE: There is streak artifact from patient body habitus which limits evaluation of the lower cervical spine and thoracic spine. There are no acute cervical spine fractures visualized. There is stable grade 1 anterolisthesis of C4 on C5 and C7 on T1. There is no pars defect and is likely degenerative. There are cervical spine vertebral body spurs and facet arthropathy. The visualized neck soft tissue structures show no significant abnormality. Visualized upper lung juarez are clear. IMPRESSION: 1: There is no evidence of acute intracranial process. There is no intracranial hemorrhage. 2: There is interval development of a small area of extracranial soft tissue swelling involving left posterior aspect of the head. There is no skull fracture. 3: Cervical spine degenerative disease with no acute fracture. Dictated by: Dictated on workstation # [id number]
--- NOTE | 2020-08-25 11:12 | Diagnostic Imaging Report ---
CLINICAL INDICATION: Patient found on the floor at 0545 hours today. Patient is unable to give past medical history and does not know about the fall. EXAM: Axial CT scan of the thoracic and lumbar spine performed without IV contrast. Sagittal and coronal reformations were performed. Bone and soft tissue windows were created. Auto Exposure Controls were utilized during the CT exam to meet ALARA standards for radiation dose reduction. COMPARISON: X-ray of the thoracic and lumbar spine dated 02/01/2014. FINDINGS: There is a subtle nondisplaced fracture involving the right anterior inferior aspect of the T7 vertebra which is best seen on the sagittal reformatted images series 602, image 12 and image 13 and 14. There is no other thoracic spine fracture seen. There is no thoracic spine dislocation. There are hypertrophic spurs seen throughout the thoracic spine and facet arthropathy. There is a partially visualized fmthh-nm-kgpodyiw right pleural effusion. There are parenchymal bands in both lung bases which may represent atelectasis and/or scarring. Lumbar spine shows no acute fracture. There is degenerative grade 1 anterolisthesis of L4 on L5. There is grade 1 retrolisthesis of T12 on L1 likely degenerative. There is multilevel lumbar spine facet arthropathy/hypertrophy. There are lumbar spine degenerative spurs. There is no significant paraspinal soft tissue abnormality. IMPRESSION: 1: There is a subtle nondisplaced fracture involving the right anterior inferior aspect of the T7 vertebra which involves the anterior column only. 2: There is no other thoracic spine fracture seen. 3: There is no acute lumbar spine fracture. 4: There is multilevel thoracic and lumbar spine degenerative disease. 5: There is a small to moderate size right pleural effusion. Chest x-ray would better evaluate. Results of this report discussed with Dr. Yo Hawk via the telephone on 08/25/2020 at 1105 hours. Dictated by: Dictated on workstation # [id number]
[2020-08-25 11:13] LABS: BASOPHILS # (AUTO) 0.1 10^3/uL (0.0-0.1); BASOPHILS % (AUTO) 1 % (0-10); EOSINOPHILS # (AUTO) 0.1 10^3/uL (0.0-0.3); EOSINOPHILS % (AUTO) 1 % (0-10); HEMATOCRIT 34 % (35-52); HEMOGLOBIN 10.8 g/dL (11.5-16.0); LYMPHOCYTES # (AUTO) 0.7 10^3/uL (1.0-4.0); LYMPHOCYTES % (AUTO) 7 % (12-44); MEAN CORPUSCULAR HEMOGLOBIN 32 pg (25-34); MEAN CORPUSCULAR HGB CONC 32 g/dL (32-36); MEAN CORPUSCULAR VOLUME 100 fL (80-99); MONOCYTES # (AUTO) 0.6 10^3/uL (0.0-1.0); MONOCYTES % (AUTO) 6 % (0-12); NEUTROPHILS # (AUTO) 8.6 10^3/uL (1.8-7.8); NEUTROPHILS % (AUTO) 84 % (42-75); PLATELET COUNT 234 10^3/uL (130-400); WHITE BLOOD COUNT 10.2 10^3/uL (4.3-11.0)
[2020-08-25 11:22] LABS: CHLORIDE 103 MMOL/L (98-107); POTASSIUM 3.9 MMOL/L (3.6-5.0); SODIUM 140 MMOL/L (135-145)
[2020-08-25 11:23] LABS: CALCIUM 8.7 MG/DL (8.5-10.1); GLUCOSE 102 MG/DL (70-105)
[2020-08-25 11:25] LABS: CARBON DIOXIDE 29 MMOL/L (21-32)
[2020-08-25 11:27] LABS: CREATININE SERUM 0.87 MG/DL (0.60-1.30); GFR ESTIMATED > 60
[2020-08-25 11:28] LABS: BUN/CREATININE RATIO 29
[2020-08-25 11:31] LABS: BASOPHILS % (MANUAL) 1 %; EOSINOPHILS % (MANUAL) 2 %; LYMPHOCYTES % (MANUAL) 11 %; MONOCYTES % (MANUAL) 8 %; NEUTROPHILS % (MANUAL) 78 %; RBC MORPH NORMAL
[2020-08-25 12:29] LABS: BILIRUBIN,URINE NEGATIVE (NEGATIVE); CLARITY,URINE CLEAR; COLOR,URINE YELLOW; GLUCOSE, URINE (UA) NEGATIVE (NEGATIVE); KETONES,URINE NEGATIVE (NEGATIVE); LEUKOCYTE ESTERASE ,URINE NEGATIVE (NEGATIVE); NITRITE,URINE NEGATIVE (NEGATIVE); PROTEIN,URINE NEGATIVE (NEGATIVE)
[2020-08-25 12:46] LABS: BACTERIA,URINE NEGATIVE /HPF; RBC,URINE RARE /HPF; SQUAMOUS EPITHELIAL CELL,UR RARE /HPF; WBC,URINE RARE /HPF
--- NOTE | 2020-08-25 13:21 | ED Fall/Injury ---
General Chief Complaint: Trauma-Non Activation Stated Complaint: FALL Nursing Triage Note: [facility] 0545 TODAY. WANTS PATIENT CHECKED OUT PATIENT UNABLE TO GIVE PMH PATIENT DOSEN'T KNOW ABOUT THE FALL Source: patient Exam Limitations: no limitations History of Present Illness Date Seen by Provider: Aug 25, 2020 Time Seen by Provider: 09:48 Initial Comments This 80-year-old woman with rather severe dementia presents to the emergency room via EMS from the long-term where she was found on the floor presumed to have had a fall. She appears to have a hematoma on the left occiput. She complains of back pain but is otherwise a very poor historian. Staff report that she is ambulatory but generally does not communicate well due to severe dementia. She is noted to be hypoxic, staff reports this is chronic and she uses oxygen as needed at the long-term. Allergies and Home Medications Allergies Coded Allergies: Sulfa (Sulfonamide Antibiotics) (Unverified Allergy, Mild, HIVES, 04/21/05) codeine (Unverified Allergy, Mild, NAUSEA, 04/21/05) atorvastatin (Verified Allergy, Unknown, 04/21/05) cephalexin (Unverified Allergy, Unknown, PT HAS REC ROCEPHIN,CEFTIN & AUGMENTIN IN PAST, 12/19/11) PER DR. WASSERMAN'S OFFICE PT HAS RECEIVED ROCEPHIN, CEFTIN, AND AUGMENTIN IN PAST WITHOUT PROBLEMS doxycycline (Verified Allergy, Unknown, 04/21/05) gatifloxacin (Verified Allergy, Unknown, 04/21/05) grepafloxacin (Verified Allergy, Unknown, 04/21/05) indapamide (Unverified Allergy, Unknown, 11/21/14) penbutolol (Verified Allergy, Unknown, 04/21/05) sulfamethoxazole (Verified Allergy, Unknown, 04/21/05) trimethoprim (Verified Allergy, Unknown, 04/21/05) Home Medications Candesartan Cilexetil 32 Mg Tablet, 32 MG PO DAILY, (Reported) Donepezil HCl 10 Mg Tablet, 10 MG PO HS, (Reported) Enoxaparin Sodium 40 Mg/0.4 Ml Syringe, 40 MG SC DAILY@1200 Prescribed by: KATHERIN GABRIEL on 01/26/20 1127 Escitalopram Oxalate 10 Mg Tablet, 10 MG PO DAILY, (Reported) Hydrocodone/Acetaminophen 1 Each Tablet, 0.5-1 TAB PO Q4H PRN for PAIN-MODERATE (5-7) Prescribed by: YO DE LA TORRE on 08/25/20 1322 Levofloxacin 750 Mg Tablet, 750 MG PO Q48H Next dose Friday morning then every other day until gone Prescribed by: KATHERIN GABRIEL on 01/26/20 112 Levothyroxine Sodium 25 Mcg Tablet, 25 MCG PO DAILY@0630 Prescribed by: KATHERIN GABRIEL on 01/26/20 112 Metoprolol Tartrate 50 Mg Tablet, 50 MG PO BID Prescribed by: KATHERIN GABRIEL on 01/26/20 112 Nystatin 15 Gm Cream..g., 0 GM TP BID Prescribed by: KATHERIN GABRIEL on 01/26/201126 Patient Home Medication List Home Medication List Reviewed: Yes Review of Systems Review of Systems Constitutional: no symptoms reported Eyes: No Symptoms Reported Ears, Nose, Mouth, Throat: no symptoms reported Respiratory: see HPI Cardiovascular: no symptoms reported Gastrointestinal: no symptoms reported Genitourinary: no symptoms reported : No Musculoskeletal: see HPI Skin: no symptoms reported Psychiatric/Neurological: See HPI Past Mvaarfn-Stgbff-Tkscme Hx Past Med/Social Hx: Reviewed Nursing Past Med/Soc Hx Patient Social History Alcohol Use: Denies Use Type Used: Cigarettes Former Smoker, Quit: Mar 10, 2004 2nd Hand Smoke Exposure: No Recent Infectious Disease Expo: No Recent Hopitalizations: No Immunizations Up To Date Tetanus Booster (TDap): Less than 5yrs Date of Pneumonia Vaccine: Dec 18, 2007 Date of Influenza Vaccine: Dec 12, 2016 Seasonal Allergies Seasonal Allergies: No Past Medical History Surgeries: Yes (D AND C'S, RIGHT HAND SX, LASER EYE SURGERY ) Appendectomy, Breast, Eye Surgery, Hysterectomy, Oophorectomy, Orthopedic, Thyroidectomy, Tonsillectomy Respiratory: Yes (HOME O2 AT 2L/NC) Chronic Bronchitis, COPD Cardiac: Yes (HOME O2 AT 2L/NC) High Cholesterol, Hypertension Neurological: Yes Dementia : No 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 Disorders: No [employer] TE[employer]IAN History: Hysterectomy Genitourinary: No Gastrointestinal: Yes (GALLSTONES-NO SURGERY) Chronic Constipation, Hemorrhoids, Gall Bladder Disease Musculoskeletal: Yes (ARTHRITIS; LYMPHEDEMA RIGHT ARM-S/P RIGHT lumpectomy) Arthritis Endocrine: Yes ( THYROID CANCER--S/P SURGERY) Hypothyroidsim, Diabetes, Non-Insulin dep HEENT: Yes Cataract Cancer: Yes Breast, Thyroid Did You Recieve Any Treatments: Yes What Type of Treatment Did You: Radiation, Surgical Intervention Psychosocial: Yes Anxiety, Depression Integumentary: Yes Psoriasis Blood Disorders: Yes (anemia) Physical Exam Vital Signs Vital Signs - First Documented 08/25/20 08/25/20 09:46 11:02 Temp 36.4 Pulse 59 Resp 18 B/P (MAP) 160/72 (101) Pulse Ox 90 O2 Delivery Room Air O2 Flow Rate 2.00 FiO2 93 Capillary Refill : Less Than 3 Seconds Height, Weight, BMI Height: 4'11.00" Weight: 176lbs. 0.0oz. 79.527835nn; 28.00 BMI Method:Stated General Appearance: WD/WN, no apparent distress HEENT: normal ENT inspection Neck: non-tender, normal inspection Cardiovascular: regular rate, rhythm, no edema, no murmur Respiratory: lungs clear, no respiratory distress, wheezing Gastrointestinal: soft Extremities: normal inspection, no pedal edema Neurologic/Psychiatric: supervisor pleating II-XII nml as tested, no motor/sensory deficits, alert, normal mood/affect Skin: normal color, warm/dry Marcelle Coma Score Best Eye Response: (4) Open Spontaneously Best Verbal Response: (4) Confused Conversation Best Motor Response: (6) Obeys Commands Marcelle Total: 14 Progress/Results/Core Measures Results/Orders Lab Results Laboratory Tests Test 08/25/20 09:56 08/25/20 11:05 08/25/20 12:15 Range/Units Glucometer 113 H 70-110 MG/DL White Blood Count 10.2 4.3-11.0 10^3/uL Red Blood Count 3.36 L 3.80-5.11 10^6/uL Hemoglobin 10.8 L 11.5-16.0 g/dL Hematocrit 34 L 35-52 % Mean Corpuscular Volume 100 H 80-99 fL Mean Corpuscular Hemoglobin 32 25-34 pg Mean Corpuscular Hemoglobin Concent 32 32-36 g/dL Red Cell Distribution Width 13.4 10.0-14.5 % Platelet Count 234 130-400 10^3/uL Mean Platelet Volume 10.0 9.0-12.2 fL Immature Granulocyte % (Auto) 0 % Neutrophils (%) (Auto) 84 H 42-75 % Lymphocytes (%) (Auto) 7 L 12-44 % Monocytes (%) (Auto) 6 0-12 % Eosinophils (%) (Auto) 1 0-10 % Basophils (%) (Auto) 1 0-10 % Neutrophils # (Auto) 8.6 H 1.8-7.8 10^3/uL Lymphocytes # (Auto) 0.7 L 1.0-4.0 10^3/uL Monocytes # (Auto) 0.6 0.0-1.0 10^3/uL Eosinophils # (Auto) 0.1 0.0-0.3 10^3/uL Basophils # (Auto) 0.1 0.0-0.1 10^3/uL Immature Granulocyte # (Auto) 0.0 0.0-0.1 10^3/uL Neutrophils % (Manual) 78 % Lymphocytes % (Manual) 11 % Monocytes % (Manual) 8 % Eosinophils % (Manual) 2 % Basophils % (Manual) 1 % Blood Morphology Comment NORMAL Sodium Level 140 135-145 MMOL/L Potassium Level 3.9 3.6-5.0 MMOL/L Chloride Level 103 98-107 MMOL/L Carbon Dioxide Level 29 21-32 MMOL/L Anion Gap 8 5-14 MMOL/L Blood Urea Nitrogen 25 H 7-18 MG/DL Creatinine 0.87 0.60-1.30 MG/DL Estimat Glomerular Filtration Rate > 60 BUN/Creatinine Ratio 29 Glucose Level 102 70-105 MG/DL Calcium Level 8.7 8.5-10.1 MG/DL Urine Color YELLOW Urine Clarity CLEAR Urine pH 6.0 5-9 Urine Specific [place] 1.025 H 1.016-1.022 Urine Protein NEGATIVE NEGATIVE Urine Glucose (UA) NEGATIVE NEGATIVE Urine Ketones NEGATIVE NEGATIVE Urine Nitrite NEGATIVE NEGATIVE Urine Bilirubin NEGATIVE NEGATIVE Urine Urobilinogen 0.2 < = 1.0 MG/DL Urine Leukocyte Esterase NEGATIVE NEGATIVE Urine RBC (Auto) NEGATIVE NEGATIVE Urine RBC RARE /HPF Urine WBC RARE /HPF Urine Squamous Epithelial Cells RARE /HPF Urine Crystals NONE /LPF Urine Bacteria NEGATIVE /HPF Urine Casts NONE /LPF Urine Mucus NEGATIVE /LPF Urine Culture Indicated NO My Orders Orders - YO HAWK MD Basic Metabolic Panel (08/25/20 10:01) Cbc With Automated Diff (08/25/20 10:01) Ua Culture If Indicated (08/25/20 10:01) Ct Head/Cervical Spine Wo (08/25/20 10:01) Ct Thoracic/Lumbar Spine Wo (08/25/20 10:01) Chest 1 View, Ap/Pa Only (08/25/20 10:01) Albuterol/Ipra Inhalation Soln (Duoneb I (08/25/20 10:15) Svn Small Volume Nebulizer (08/25/20 10:01) Manual Differential (08/25/20 11:05) Medications Given in ED Current Medications Medications Dose Ordered Sig/Wili Route Start Time Stop Time Status Last Admin Dose Admin Albuterol/ Ipratropium 3 ml ONCE ONCE INH 08/25/20 10:15 08/25/20 10:16 DC 08/25/20 11:07 3 ML Vital Signs/I&O 08/25/20 08/25/20 08/25/20 09:46 11:02 14:20 Temp 36.4 Pulse 59 72 Resp 18 18 B/P (MAP) 160/72 (101) 180/85 Pulse Ox 90 93 O2 Delivery Room Air Room Air Nasal Cannula O2 Flow Rate 2.00 2.00 FiO2 93 Blood Pressure Mean: 101 FSBG Bedside Testing Finger Stick Blood Glucose: 113 Progress Progress Note : Progress Note Patient was seen and examined she was Covid tested which was negative. CT of the spine was obtained showing a fracture at T7. This was a stable fracture not requiring any emergent treatment. Pain was treated with hydrocodone. Patient was given a nebulizer treatment for her wheezing. She was discharged back to the long-term in stable condition. Pleural effusion was noted without significant change in x-ray from prior. Diagnostic Imaging Diagonstic Imaging: Xray Plain Films/CT/US/NM/MRI: chest Comments NAME: HERMES ECHEVERRIA [facility] REC#: [id number] PT STATUS: DEP ER : 1940 PHYSICIAN: YO HAWK MD ADMIT DATE: 08/25/20/ER Signed Date of Exam:08/25/20 CHEST 1 VIEW, AP/PA ONLY INDICATION: Shortness of air. Time of exam 10:16 a.m. Correlation is made with prior chest 12/18/2018. The heart is enlarged. Lungs are clear. No infiltrates or evidence of failure is detected. No significant effusion or pneumothorax is identified. IMPRESSION: Stable chest when compared with exam from 12/18/2018. No acute feature is detected. Dictated by: Dictated on workstation # [id number] Dict: 08/25/20 1024 Trans: 08/25/20 1516 [facility] [phone] Interpreted by: SUSHMA REAVES MD Electronically signed by: SUSHMA REAVES MD 08/25/20 1516 Reviewed: Reviewed by Me Diagonstic Imaging: CT Plain Films/CT/US/NM/MRI: c-spine, head Comments NAME: HERMES ECHEVERRIA [facility] REC#: [id number] PT STATUS: REG ER : 1940 PHYSICIAN: YO HAWK MD ADMIT DATE: 08/25/20/ER Draft Date of Exam:08/25/20 CT HEAD/CERVICAL SPINE WO CLINICAL INDICATION: Patient was found on the floor at 0545 hours today at a long-term. Patient unable to give past medical history and does not know about a fall. EXAM: Axial Head CT without IV contrast with sagittal and coronal reformations. Axial CT scan of the cervical spine with sagittal and coronal reformations. Auto Exposure Controls were utilized during the CT exam to meet ALARA standards for radiation dose reduction. COMPARISON: CT scan of the head and cervical spine without contrast dated 01/23/2020. FINDINGS: HEAD CT: Motion artifact limits evaluation of anatomical structures. There is no evidence of acute cerebral infarct, intracranial hemorrhage, or gross mass effect. The brain parenchymal volume appears appropriate for patient's age. There are subtle patchy areas of low-attenuation white matter changes involving both cerebral hemispheres, likely representing chronic small vessel ischemic disease. There is normal lloyd-white matter distinction. There is no significant midline shift or herniation. There is no evidence of hydrocephalus. The basal cisterns are unremarkable. There is interval development of a small area of extracranial soft tissue swelling involving left posterior aspect of the head. There is no skull fracture. Otherwise, the skull and extracranial soft tissue are unremarkable. Postop changes to both globes are seen, likely related to cataract surgery. Otherwise, orbits and globes are unremarkable. The paranasal sinuses are unremarkable. Temporal bones show no significant abnormality. CERVICAL SPINE: There is streak artifact from patient body habitus which limits evaluation of the lower cervical spine and thoracic spine. There are no acute cervical spine fractures visualized. There is stable grade 1 anterolisthesis of C4 on C5 and C7 on T1. There is no pars defect and is likely degenerative. There are cervical spine vertebral body spurs and facet arthropathy. The visualized neck soft tissue structures show no significant abnormality. Visualized upper lung juarez are clear. IMPRESSION: 1: There is no evidence of acute intracranial process. There is no intracranial hemorrhage. 2: There is interval development of a small area of extracranial soft tissue swelling involving left posterior aspect of the head. There is no skull fracture. 3: Cervical spine degenerative disease with no acute fracture. Dictated on workstation # [id number] Dict: 08/25/20 1027 Trans: 08/25/20 1042 [id number] Interpreted by: CYRUS RODRÍGUEZ MD Reviewed: Reviewed by Me Diagonstic Imaging: CT Plain Films/CT/US/NM/MRI: other (Thoracic and lumbar spine) Comments NAME: HERMES ECHEVERRIA [facility] REC#: [id number] PT STATUS: REG ER : 1940 PHYSICIAN: YO HAWK MD ADMIT DATE: 08/25/20/ER Signed Date of Exam:08/25/20 CT THORACIC/LUMBAR SPINE WO CLINICAL INDICATION: Patient found on the floor at 0545 hours today. Patient is unable to give past medical history and does not know about the fall. EXAM: Axial CT scan of the thoracic and lumbar spine performed without IV contrast. Sagittal and coronal reformations were performed. Bone and soft tissue windows were created. Auto Exposure Controls were utilized during the CT exam to meet ALARA standards for radiation dose reduction. COMPARISON: X-ray of the thoracic and lumbar spine dated 02/01/2014. FINDINGS: There is a subtle nondisplaced fracture involving the right anterior inferior aspect of the T7 vertebra which is best seen on the sagittal reformatted images series 602, image 12 and image 13 and 14. There is no other thoracic spine fracture seen. There is no thoracic spine dislocation. There are hypertrophic spurs seen throughout the thoracic spine and facet arthropathy. There is a partially visualized [id number] right pleural effusion. There are parenchymal bands in both lung bases which may represent atelectasis and/or scarring. Lumbar spine shows no acute fracture. There is degenerative grade 1 anterolisthesis of L4 on L5. There is grade 1 retrolisthesis of T12 on L1 likely degenerative. There is multilevel lumbar spine facet arthropathy/hypertrophy. There are lumbar spine degenerative spurs. There is no significant paraspinal soft tissue abnormality. IMPRESSION: 1: There is a subtle nondisplaced fracture involving the right anterior inferior aspect of the T7 vertebra which involves the anterior column only. 2: There is no other thoracic spine fracture seen. 3: There is no acute lumbar spine fracture. 4: There is multilevel thoracic and lumbar spine degenerative disease. 5: There is a small to moderate size right pleural effusion. Chest x-ray would better evaluate. Results of this report discussed with Dr. Yo Hawk via the telephone on 08/25/2020 at 1105 hours. Dictated by: Dictated on workstation # [id number] Dict: 08/25/20 1050 Trans: 08/25/20 1128 [facility] [phone] Interpreted by: CYRUS RODRÍGUEZ MD Electronically signed by: CYRUS RODRÍGUEZ MD 08/25/20 1128 Reviewed: Reviewed by Me, Discussed w/Radiologist Departure Impression Primary Impression: Fall on same level Qualified Codes: W18.30XA - Fall on same level, unspecified, initial encounter Additional Impressions: T7 vertebral fracture Qualified Codes: S22.068A - Other fracture of T7-t8 thoracic vertebra, initial encounter for closed fracture Severe dementia Pleural effusion Disposition: 01 HOME, SELF-CARE Condition: Stable Departure-Patient Inst. Decision time for Depature: 13:19 Referrals: [facility] (PCP/Family) Primary Care Physician Patient Instructions: Vertebral Compression Fracture Add. Discharge Instructions: Follow-up with your primary care provider soon as possible. You have a stable fracture of your T7 vertebra that does not require immediate surgical or orthopedic attention. Use hydrocodone as prescribed for pain. Call with questions or concerns. Return to care if there are worsening symptoms. Continue to use oxygen as needed to keep saturations greater than 92%. All discharge instructions reviewed with patient and/or family. Voiced understanding. Scripts Hydrocodone/Acetaminophen (Hydrocodone-Acetamin 5-325 mg) 1 Each Tablet 0.5-1 TAB PO Q4H PRN for PAIN-MODERATE (5-7), #20 TAB Prov: YO HAWK MD 08/25/20 Copy Copies To 1: ARRON BERGER JOSHUA T MD Aug 25, 2020 13:21
[2020-08-25] MEDS ORDERED: ACHD5005 PO (13:22)
[2020-08-25 14:20] VITALS: BP 180/85
== END 2020-08-25 14:22 | disposition home or self-care (01) ==
LOC: EDUNIT# 09:45 → ER 09:48
DX: S22.061A Stable burst fracture of T7-T8 vertebra, initial encounter for closed fracture (principal); F03.90 Unspecified dementia, unspecified severity, without behavioral disturbance, psychotic disturbance, mood disturbance, and anxiety; J90 Pleural effusion, not elsewhere classified; J44.9 Chronic obstructive pulmonary disease, unspecified; I10 Essential (primary) hypertension; F32.9 Major depressive disorder, single episode, unspecified; F41.9 Anxiety disorder, unspecified; E03.9 Hypothyroidism, unspecified; E11.9 Type 2 diabetes mellitus without complications; Z87.891 Personal history of nicotine dependence; Z79.899 Other long term (current) drug therapy; Z79.01 Long term (current) use of anticoagulants; Z79.890 Hormone replacement therapy; W18.30XA Fall on same level, unspecified, initial encounter
CPT/HCPCS: 36415; 51701; 70450; 71045; 72125; 72128; 72131; 80048; 81000; 82947; 85007; 85027; 94640

== ENCOUNTER → 2020-09-05 | Outpatient (CLI) | payer MEDICARE, OTHER ==
[~2020-09-05] MED LIST changes: +ACHD5005 PO
--- NOTE | 2020-09-05 09:49 | Diagnostic Imaging Report ---
PROCEDURE: CT head without contrast. TECHNIQUE: Multiple contiguous axial images were obtained through the brain without the use of intravenous contrast. Auto Exposure Controls were utilized during the CT exam to meet ALARA standards for radiation dose reduction. INDICATION: Fall with head injury. Comparison is made study of 08/25/2020. FINDINGS: Ventricles and sulci are diffusely prominent. There is no evidence of intracranial hemorrhage. No abnormal mass effect or shift of midline structures is identified. No adverse change is identified. IMPRESSION: Stable chronic findings without acute intracranial abnormality detected. Dictated by: Dictated on workstation # [id number]
== END ==
LOC: RAD 09:15
PROVIDERS: ATTEND Internal Medicine
DX: S09.90XA Unspecified injury of head, initial encounter (principal); W19.XXXA Unspecified fall, initial encounter
CPT/HCPCS: 70450

== ENCOUNTER 2021-03-28 08:00 | Inpatient (IN) | payer MEDICARE, OTHER ==
[~2021-03-28] VITALS: Ht 157 cm; Wt 68.8 kg
[~2021-03-28 08:00] MED LIST changes: +CAND32TA21 PO; -CAND32TA8 PO; +CLIN-144 PO; -CLIN300C12 PO
[2021-03-28] MEDS ORDERED: ACETAMINOPHEN 325 MG TABLET PO ONE (08:15)
[2021-03-28] MEDS ORDERED: ACETAMINOPHEN 650 MG SUPP (TYLENOL) PR ONE (08:15)
--- NOTE | 2021-03-28 08:18 | ED Respiratory ---
General Stated Complaint: COVID +, RESP DISTRES Source: patient, EMS, [facility] records Exam Limitations: clinical condition History of Present Illness Date Seen by Provider: Mar 28, 2021 Time Seen by Provider: 08:01 Initial Comments 81-year-old female with past medical history of type 2 diabetes, hypertension, hyperlipidemia, hypothyroidism, and advanced dementia with minimal communciation, COPD on intermittent 2L O2 coming from the [facility] via EMS due to hypoxia. The patient tested positive for COVID yesterday, and has since been prescribed azithromycin and dexamethasone. She has taken these today. Noted she was hypoxic to the 70s, improved to the 80s on nasal cannula so they called EMS. They placed her on a nonrebreather 15 L with improvement to around 91%. Temperature around 103.8 per EMS. She has not received medications for this that we know of yet. The patient is otherwise alert per EMS but not answering questions and is a little bit more lethargic per the [facility] report. Further elements of the history and physical are unable to be obtained by the patient as she is not answering questions. Has had the COVID vaccine x2 without booster. Allergies and Home Medications Allergies Coded Allergies: Sulfa (Sulfonamide Antibiotics) (Unverified Allergy, Mild, HIVES, 04/21/05) codeine (Unverified Allergy, Mild, NAUSEA, 04/21/05) atorvastatin (Verified Allergy, Unknown, 04/21/05) cephalexin (Unverified Allergy, Unknown, PT HAS REC ROCEPHIN,CEFTIN & AUGMENTIN IN PAST, 12/19/11) PER DR. WASSERMAN'S OFFICE PT HAS RECEIVED ROCEPHIN, CEFTIN, AND AUGMENTIN IN PAST WITHOUT PROBLEMS doxycycline (Verified Allergy, Unknown, 04/21/05) gatifloxacin (Verified Allergy, Unknown, 04/21/05) grepafloxacin (Verified Allergy, Unknown, 04/21/05) indapamide (Unverified Allergy, Unknown, 11/21/14) penbutolol (Verified Allergy, Unknown, 04/21/05) sulfamethoxazole (Verified Allergy, Unknown, 04/21/05) trimethoprim (Verified Allergy, Unknown, 04/21/05) Patient Home Medication List Home Medication List Reviewed: Yes Candesartan Cilexetil (Candesartan Cilexetil) 32 Mg Tablet, 32 MG PO DAILY, (Reported) Entered as Reported by: ALVARO VANEGAS on 01/24/20 1413 Donepezil HCl (Donepezil HCl) 10 Mg Tablet, 10 MG PO HS, (Reported) Entered as Reported by: ALVARO VANEGAS on 01/24/20 1414 Enoxaparin Sodium (Enoxaparin Sodium) 40 Mg/0.4 Ml Syringe, 40 MG SC DAILY@1200 Prescribed by: KATHERIN GABRIEL on 01/26/20 1127 Escitalopram Oxalate (Lexapro) 10 Mg Tablet, 10 MG PO DAILY, (Reported) Entered as Reported by: ALVARO VANEGAS on 01/24/20 1414 Hydrocodone/Acetaminophen (Hydrocodone-Acetamin 5-325 mg) 1 Each Tablet, 0.5-1 TAB PO Q4H PRN for PAIN-MODERATE (5-7) Prescribed by: SEN DE LA TORRE on 08/25/20 1322 Levofloxacin (Levofloxacin) 750 Mg Tablet, 750 MG PO Q48H Prescribed by: KATHERIN GABRIEL on 01/26/20 1127 Levothyroxine Sodium (Levothyroxine Sodium) 25 Mcg Tablet, 25 MCG PO DAILY@0630 Prescribed by: KATHERIN GABRIEL on 01/26/20 112 Metoprolol Tartrate (Metoprolol Tartrate) 50 Mg Tablet, 50 MG PO BID Prescribed by: KATHERIN GABRIEL on 01/26/20 1127 Nystatin (Nystatin) 15 Gm Cream..g., 0 GM TP BID Prescribed by: KATHERIN GABRIEL on 01/26/20 1127 Review of Systems Review of Systems Constitutional: fever Respiratory: cough, short of breath All Other Systems Reviewed Negative Unless Noted: Yes Past Rlofiuv-Ecgwlh-Hffksj Hx Patient Social History Tobacco Use?: No Immunizations Up To Date Tetanus Booster (TDap): Less than 5yrs Seasonal Allergies Seasonal Allergies: No Past Medical History Surgeries: Yes (D AND C'S, RIGHT HAND SX, LASER EYE SURGERY ) Appendectomy, Breast, Eye Surgery, Hysterectomy, Oophorectomy, Orthopedic, Thyroidectomy, Tonsillectomy Respiratory: Yes (HOME O2 AT 2L/NC) Chronic Bronchitis, COPD Cardiac: Yes (HOME O2 AT 2L/NC) High Cholesterol, Hypertension Neurological: Yes Dementia 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 Disorders: 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 History: Hysterectomy Genitourinary: No Gastrointestinal: Yes (GALLSTONES-NO SURGERY) Chronic Constipation, Hemorrhoids, Gall Bladder Disease Musculoskeletal: Yes (ARTHRITIS; LYMPHEDEMA RIGHT ARM-S/P RIGHT lumpectomy) Arthritis Endocrine: Yes ( THYROID CANCER--S/P SURGERY) Hypothyroidsim, Diabetes, Non-Insulin dep HEENT: Yes Cataract Cancer: Yes Breast, Thyroid Did You Recieve Any Treatments: Yes What Type of Treatment Did You: Radiation, Surgical Intervention Psychosocial: Yes Anxiety, Depression Integumentary: Yes Psoriasis Blood Disorders: Yes (anemia) Physical Exam Vital Signs - First Documented 03/28/21 03/28/21 08:02 08:23 Temp 38.8 Pulse 92 Resp 36 B/P (MAP) 169/67 (101) Pulse Ox 91 O2 Delivery Non Rebreather O2 Flow Rate 15.00 FiO2 100 Capillary Refill : Height: 4'11.00" Weight: 176lbs. 0.0oz. 79.057265kf; 28.00 BMI Method:Stated General Appearance: WD/WN, mild distress Eyes: Bilateral Eye Normal Inspection HEENT: PERRL/EOMI, normal ENT inspection, pharynx normal Neck: non-tender, full range of motion, supple, normal inspection Respiratory: accessory muscle use, crackles, rales Cardiovascular: regular rate, rhythm, no edema, no murmur Gastrointestinal: normal bowel sounds, non tender, soft; No distended, No guarding, No rebound Extremities: normal range of motion, non-tender, normal inspection, no pedal edema, no calf tenderness, normal capillary refill Neurologic/Psychiatric: other (Moving all 4 extremities, will follow commands with extremities, no obvious deficits, eyes open and is alert but not answering questions, did say yes 1 time) Skin: normal color, warm/dry Lymphatic: no adenopathy Focused Exam Lactate Level 03/28/21 08:15: Lactic Acid Level 1.08 Lactic Acid Level Laboratory Tests Test 03/28/21 08:15 Lactic Acid Level 1.08 MMOL/L (0.50-2.00) Progress/Results/Core Measures Suspected Sepsis SIRS Temperature: Pulse: Respiratory Rate: Laboratory Tests 03/28/21 08:15: White Blood Count 12.5H Blood Pressure / Mean: 03/28/21 08:15: Lactic Acid Level 1.08 Laboratory Tests 03/28/21 08:15: Creatinine 0.77, INR Comment 1.0, Platelet Count 248, Total Bilirubin 0.5 Results/Orders Lab Results Laboratory Tests Test 03/28/21 08:15 Range/Units White Blood Count 12.5 H 4.3-11.0 10^3/uL Red Blood Count 4.52 3.80-5.11 10^6/uL Hemoglobin 13.2 11.5-16.0 g/dL Hematocrit 42 35-52 % Mean Corpuscular Volume 92 80-99 fL Mean Corpuscular Hemoglobin 29 25-34 pg Mean Corpuscular Hemoglobin Concent 32 32-36 g/dL Red Cell Distribution Width 15.6 H 10.0-14.5 % Platelet Count 248 130-400 10^3/uL Mean Platelet Volume 11.5 9.0-12.2 fL Immature Granulocyte % (Auto) 0 % Neutrophils (%) (Auto) 91 H 42-75 % Lymphocytes (%) (Auto) 4 L 12-44 % Monocytes (%) (Auto) 4 0-12 % Eosinophils (%) (Auto) 0 0-10 % Basophils (%) (Auto) 0 0-10 % Neutrophils # (Auto) 11.4 H 1.8-7.8 10^3/uL Lymphocytes # (Auto) 0.5 L 1.0-4.0 10^3/uL Monocytes # (Auto) 0.5 0.0-1.0 10^3/uL Eosinophils # (Auto) 0.0 0.0-0.3 10^3/uL Basophils # (Auto) 0.0 0.0-0.1 10^3/uL Immature Granulocyte # (Auto) 0.1 0.0-0.1 10^3/uL Neutrophils % (Manual) 65 % Lymphocytes % (Manual) 4 % Monocytes % (Manual) 1 % Eosinophils % (Manual) 0 % Basophils % (Manual) 1 % Metamyelocytes % 2 % Band Neutrophils 27 % Anisocytosis SLIGHT Prothrombin Time 14.0 12.2-14.7 SEC INR Comment 1.0 0.8-1.4 Activated Partial Thromboplast Time 28 24-35 SEC Fibrinogen 562 H 221-496 MG/DL D-Dimer 0.87 H 0.00-0.49 UG/ML Sodium Level 142 135-145 MMOL/L Potassium Level 3.2 L 3.6-5.0 MMOL/L Chloride Level 103 98-107 MMOL/L Carbon Dioxide Level 25 21-32 MMOL/L Anion Gap 14 5-14 MMOL/L Blood Urea Nitrogen 16 7-18 MG/DL Creatinine 0.77 0.60-1.30 MG/DL Estimat Glomerular Filtration Rate 77 BUN/Creatinine Ratio 21 Glucose Level 138 H 70-105 MG/DL Lactic Acid Level 1.08 0.50-2.00 MMOL/L Calcium Level 8.2 L 8.5-10.1 MG/DL Corrected Calcium 8.4 L 8.5-10.1 MG/DL Total Bilirubin 0.5 0.1-1.0 MG/DL Aspartate Amino Transf (AST/SGOT) 15 5-34 U/L Alanine Aminotransferase (ALT/SGPT) 9 0-55 U/L Alkaline Phosphatase 95 40-136 U/L Lactate Dehydrogenase 207 125-220 U/L Troponin I < 0.028 <0.028 NG/ML C-Reactive Protein High Sensitivity 10.10 H 0.00-0.50 MG/DL B-Type Natriuretic Peptide 127.0 H <100.0 PG/ML Total Protein 6.6 6.4-8.2 GM/DL Albumin 3.7 3.2-4.5 GM/DL Procalcitonin 0.27 H <0.10 NG/ML My Orders Orders - HERRERA FLOWER MD Monitor-Rhythm Ecg Trace Only (03/28/21 08:11) Cbc With Automated Diff (03/28/21 08:11) Comprehensive Metabolic Panel (03/28/21 08:11) Ferritin (03/28/21 08:11) LDH (03/28/21 08:11) Hs C Reactive Protein (03/28/21 08:11) Troponin I [place] (03/28/21 08:11) Lactic Acid Analyzer (03/28/21 08:11) Protime With Inr (03/28/21 08:11) Partial Thromboplastin Time (03/28/21 08:11) Fibrin Degradation Products (03/28/21 08:11) Fibrinogen (03/28/21 08:11) Ekg Tracing (03/28/21 08:11) Chest 1 View, Ap/Pa Only (03/28/21 08:11) Acetaminophen Tablet/Caplet (Tylenol T (03/28/21 08:15) Acetaminophen Suppository (Tylenol Suppo (03/28/21 08:15) Oxygen Delivery Set Up (03/28/21 08:11) Covid-19 External Lab Results (03/28/21 08:11) Bnp Jax (03/28/21 08:11) Oxygen-Administer (03/28/21 08:11) Blood Culture (03/28/21 08:18) Lactated Ringers (Lr 1000 Ml Iv Solution (03/28/21 08:30) Procalcitonin (Pct) (03/28/21 08:33) Manual Differential (03/28/21 08:15) Albuterol/Ipra Inhalation Soln (Duoneb I (03/28/21 09:15) Albuterol Inhaler (Albuterol) (03/28/21 09:34) Ed Admission (Communication) (03/28/21 09:46) Medications Given in ED Current Medications Medications Dose Ordered Sig/Wili Route Start Time Stop Time Status Last Admin Dose Admin Acetaminophen 650 mg ONCE ONCE FL 03/28/21 08:15 03/28/21 08:16 DC 03/28/21 08:30 650 MG Albuterol Sulfate 8.5 gm STK-MED ONCE IH 03/28/21 09:34 03/28/21 09:36 DC 03/28/21 09:47 8.5 GM Lactated Ringer's 1,489.89 ml @ 1,489.89 mls/hr PRN PRN IV 03/28/21 08:30 03/28/21 09:00 1,489.89 MLS/HR Vital Signs/I&O 03/28/21 03/28/21 03/28/21 03/28/21 08:02 08:23 08:30 09:47 Temp 38.8 38.8 Pulse 92 Resp 36 B/P (MAP) 169/67 (101) Pulse Ox 91 91 90 O2 Delivery Non Rebreather Vapotherm Vapotherm O2 Flow Rate 15.00 40.00 40.00 FiO2 100 100 Capillary Refill : Progress Note : Progress Note 81-year-old female with above history coming in hypoxic with COVID. The patient was 90% on 15 L nonrebreather. She is in mild distress, but actually not breathing too hard. Called respiratory therapy and transitioned her over to Vapotherm as well as she was given a duoneb treatment. An IV was placed and basic labs including blood cultures obtained. Chest x-ray ordered as well as EKG. She has received azithromycin and dexamethasone today per the records, so will not order steroids. She appears euvolemic right now, so we will hold off on a bolus unless she becomes hypotensive or her lactate is elevated. Given this is consistent with COVID-pneumonia, will hold off on broad-spectrum antibiotics at this time. At this point I called and discussed the case with the daughter, Lurdes Bean, who is the patient's DPOA and discussed the grim outlook of the patient's situation. We discussed what coding the patient and intubating the patient would look like. The daughter states this would not be in the patient's best wishes and she would not want that. She elected to make her DNR/DNI at that time. Called and discussed the case with Dr. Gabriel who admit the patient to the fourth floor under inpatient status. ECG Initial ECG Impression Date: Mar 28, 2021 Initial ECG Impression Time: 08:56 Initial ECG Rate: 96 Initial ECG Rhythm: Normal Sinus Comment Narrow QRS, borderline left axis deviation, T wave inversions in V1 and V2 with some ST depressions which appears slightly different than prior EKG Diagnostic Imaging Diagonstic Imaging: Xray Plain Films/CT/US/NM/MRI: chest Comments [facility], [place] NAME: HERMES [facility] REC#: [id number] PT STATUS: REG ER : 1940 PHYSICIAN: HERRERA FLOWER MD ADMIT DATE: 03/28/21/ER Draft Date of Exam:03/28/21 CHEST 1 VIEW, AP/PA ONLY INDICATION: Fever and respiratory distress. Patient has Covid 19. TIME OF EXAM: 9:37 AM. COMPARISON: Correlation is made with the prior chest from 08/25/2020. FINDINGS: The heart size normal. There appears to be some infiltrate or atelectasis in both lung bases. The mid and upper lung juarez are clear. There is no pneumothorax. There is a small left effusion. There are surgical clips in the right axilla. IMPRESSION: Bibasilar infiltrates and small left effusion. The report was faxed to Infection Control by [email or web address]@9:44 AM. Dictated on workstation # [id number] Dict: 03/28/2141 Trans: 03/28/2144 [id number] Interpreted by: SUSHMA REAVES MD Electronically signed by: Departure Impression Primary Impression: Respiratory failure Qualified Codes: J96.01 - Acute respiratory failure with hypoxia Additional Impression: COVID-19 Disposition: ADMITTED INPATIENT Condition: Stable Admissions Decision to Admit Reason: Admit from ER (General) Decision to Admit/Date: Mar 28, 2021 Time/Decision to Admit Time: 09:40 Departure-Patient Inst. Referrals: [facility] (PCP/Family) Primary Care Physician HERRERA FLOWER MD Mar 28, 2021 08:18
[2021-03-28] MEDS ORDERED: LACTATED RINGERS IV PRN (08:30)
[2021-03-28 08:47] LABS: BASOPHILS % (AUTO) 0 % (0-10); EOSINOPHILS % (AUTO) 0 % (0-10); HEMATOCRIT 42 % (35-52); HEMOGLOBIN 13.2 g/dL (11.5-16.0); LYMPHOCYTES # (AUTO) 0.5 10^3/uL (1.0-4.0); LYMPHOCYTES % (AUTO) 4 % (12-44); MEAN CORPUSCULAR HEMOGLOBIN 29 pg (25-34); MEAN CORPUSCULAR HGB CONC 32 g/dL (32-36); MEAN CORPUSCULAR VOLUME 92 fL (80-99); MEAN PLATELET VOLUME 11.5 fL (9.0-12.2); MONOCYTES # (AUTO) 0.5 10^3/uL (0.0-1.0); MONOCYTES % (AUTO) 4 % (0-12); NEUTROPHILS # (AUTO) 11.4 10^3/uL (1.8-7.8); NEUTROPHILS % (AUTO) 91 % (42-75); PLATELET COUNT 248 10^3/uL (130-400); WHITE BLOOD COUNT 12.5 10^3/uL (4.3-11.0)
[2021-03-28 08:57] LABS: ALBUMIN 3.7 GM/DL (3.2-4.5); CHLORIDE 103 MMOL/L (98-107); POTASSIUM 3.2 MMOL/L (3.6-5.0); SODIUM 142 MMOL/L (135-145)
[2021-03-28 08:58] LABS: CALCIUM 8.2 MG/DL (8.5-10.1)
[2021-03-28 09:00] LABS: GLUCOSE 138 MG/DL (70-105); TOTAL PROTEIN 6.6 GM/DL (6.4-8.2)
[2021-03-28 09:01] LABS: CARBON DIOXIDE 25 MMOL/L (21-32)
[2021-03-28 09:02] LABS: BILIRUBIN,TOTAL 0.5 MG/DL (0.1-1.0)
[2021-03-28 09:03] LABS: ALKALINE PHOSPHATASE 95 U/L (40-136); CREATININE SERUM 0.77 MG/DL (0.60-1.30); GFR ESTIMATED 77
[2021-03-28 09:04] LABS: BUN/CREATININE RATIO 21
[2021-03-28 09:06] LABS: ALANINE AMINOTRANSFERASE 9 U/L (0-55)
[2021-03-28 09:11] LABS: FIBRIN DEGRADATION PRODUCTS 0.87 UG/ML (0.00-0.49)
[2021-03-28] MEDS ORDERED: RT-ALBUTEROL/IPRATROPIUM 3 ML (DUONEB) VIAL INH ONE (09:15)
[2021-03-28 09:23] LABS: ANISOCYTOSIS SLIGHT; BAND NEUTROPHILS 27 %; BASOPHILS % (MANUAL) 1 %; EOSINOPHILS % (MANUAL) 0 %; LYMPHOCYTES % (MANUAL) 4 %; METAMYELOCYTES % 2 %; MONOCYTES % (MANUAL) 1 %; NEUTROPHILS % (MANUAL) 65 %
[2021-03-28] MEDS ORDERED: RT-ALBUTEROL HFA 8.5 GM INHALER IH ONE (09:34)
--- NOTE | 2021-03-28 09:45 | Diagnostic Imaging Report ---
INDICATION: Fever and respiratory distress. Patient has Covid 19. TIME OF EXAM: 9:37 AM. COMPARISON: Correlation is made with the prior chest from 08/25/2020. FINDINGS: The heart size normal. There appears to be some infiltrate or atelectasis in both lung bases. The mid and upper lung juarez are clear. There is no pneumothorax. There is a small left effusion. There are surgical clips in the right axilla. IMPRESSION: Bibasilar infiltrates and small left effusion. The report was faxed to Infection Control by [email or web address]@9:44 AM. Dictated by: Dictated on workstation # [id number]
--- NOTE | 2021-03-28 09:51 | History & Physical-Hospitalist ---
History of Present Illness HPI/Chief Complaint CC: Acute respiratory failure HPI: This is a very debilitated 81-year-old white female halfway pt of [facility] who presents with SOB, altered mental status, and Covid-19 pneumonia. She is maxed out on Vapotherm on 40L at 100% currently. She is a DNR so Covid pneumonia protocol initiated and the daughter is very aware she will likely not survive this. Will provide oxygen and monitor closely. Source: old records Exam Limitations: clinical condition, other (Dementia and nonverbal) Date Seen 03/28/21 Time Seen by a Provider: 12:00 Attending Physician PCP [facility] Referring Physician Date of Admission Home Medications & Allergies Home Medications Reviewed patient Home Medication Reconciliation performed by pharmacy medication reconciliations inspector technician and/or nursing. Patients Allergies have been reviewed. Allergies Allergies Coded Allergies Sulfa (Sulfonamide Antibiotics) (Unverified Allergy, Mild, HIVES, 04/21/05) codeine (Unverified Allergy, Mild, NAUSEA, 04/21/05) atorvastatin (Verified Allergy, Unknown, 04/21/05) cephalexin (Unverified Allergy, Unknown, PT HAS REC ROCEPHIN,CEFTIN & AUGMENTIN IN PAST, 12/19/11) PER DR. WASSERMAN'S OFFICE PT HAS RECEIVED ROCEPHIN, CEFTIN, AND AUGMENTIN IN PAST WITHOUT PROBLEMS doxycycline (Verified Allergy, Unknown, 04/21/05) gatifloxacin (Verified Allergy, Unknown, 04/21/05) grepafloxacin (Verified Allergy, Unknown, 04/21/05) indapamide (Unverified Allergy, Unknown, 11/21/14) penbutolol (Verified Allergy, Unknown, 04/21/05) sulfamethoxazole (Verified Allergy, Unknown, 04/21/05) trimethoprim (Verified Allergy, Unknown, 04/21/05) Past Sfulatv-Wtrwto-Ofdfpr Hx Patient Social History Marrital Status: single Employed/Student: retired Tobacco Use?: No Smoking Status: Unknown if Ever Smoked Substance use?: No Alcohol Use?: No Immunizations Up To Date Date of Influenza Vaccine: Dec 12, 2016 First/Initial COVID19 Vaccinat: 2020 Second COVID19 Vaccination Ariel: 2020 Date of Pneumonia Vaccine: Dec 18, 2007 Seasonal Allergies Seasonal Allergies: No Current Status Advance Directives: No Communicates: Verbally Primary Language: Eritrean Preferred Spoken Language: Eritrean Is interpretation needed?: No Sensory deficits: Vision impairment Implanted or Applied Medical D: None Past Medical History Surgeries: Appendectomy, Breast, Eye Surgery, Hysterectomy, Oophorectomy, Orthopedic, Thyroidectomy, Tonsillectomy Chronic Bronchitis, COPD High Cholesterol, Hypertension 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 Chronic Constipation, Hemorrhoids, Gall Bladder Disease Arthritis Hypothyroidsim, Diabetes, Non-Insulin dep Cataract Breast, Thyroid Did You Recieve Any Treatments: Yes What Type of Treatment Did You: Radiation, Surgical Intervention Anxiety, Depression Psoriasis Blood Disorders: Yes (anemia) Review of Systems ROS-Unable to Obtain: Nonverbal Constitutional: see HPI Physical Exam Physical Exam Vital Signs Vital Signs - First Documented 03/28/21 03/28/21 08:02 08:23 Temp 38.8 Pulse 92 Resp 36 B/P (MAP) 169/67 (101) Pulse Ox 91 O2 Delivery Non Rebreather O2 Flow Rate 15.00 FiO2 100 Capillary Refill : Less Than 3 Seconds Height, Weight, BMI Height: 4'11.00" Weight: 176lbs. 0.0oz. 79.456002sr; 27.00 BMI Method:Stated General Appearance: Anxious, Chronically ill, Mild Distress HEENT: Pharynx Normal Neck: Full Range of Motion Respiratory: Accessory Muscle Use, Crackles, Decreased Breath Sounds Cardiovascular: Regular Rate, Rhythm Neurologic/Psychiatric: Alert, Disoriented Results Results/Procedures Labs Laboratory Tests 03/28/21 08:15 Patient resulted labs reviewed. Assessment/Plan Admission Diagnosis Assessment: Acute hypoxic respiratory failure maxed on Vapotherm 40 L / 100% COVID-19 pneumonia Dementia Nonverbal Exacerbation of COPD custodial resident with chronic debility DO NOT RESUSCITATE Plan: COVID-19 protocol DNR Poor prognosis Admission Status: Inpatient Order (span 2 midnights) Reason for Inpatient Admission: COVID-19 pneumonia KATHERIN GABRIEL DO Mar 28, 2021 09:51
[2021-03-28] MEDS ORDERED: HALOPERIDOL 5 MG/ML (HALDOL) VIAL IM PRN (10:45)
[2021-03-28] MEDS ORDERED: polyethylene glycoL POWDER 17 GM (MIRALAX) PACK PO PRN (10:45)
[2021-03-28] MEDS ORDERED: BISACODYL 10 MG SUPP (DULCOLAX) PR PRN (10:45)
[2021-03-28] MEDS ORDERED: MELATONIN 3 MG TABLET PO PRN (10:45)
[2021-03-28] MEDS ORDERED: LACTULOSE SYRUP 10GM/15ML (ENULOSE) 30ML UDC PO PRN (10:45)
[2021-03-28] MEDS ORDERED: CALCIUM CARBONATE 500 MG (TUMS) TAB.CHEW PO PRN (10:45)
[2021-03-28] MEDS ORDERED: diphenhydrAMINE 50 MG/ML INJ (BENADRYL) IVP PRN (10:45)
[2021-03-28] MEDS ORDERED: MILK OF MAGNESIA 400 MG/5 ML 30 ML UDC PO PRN (10:45)
[2021-03-28] MEDS ORDERED: morphine INJ 4 MG/ML 1 ML (VIAL/SYRINGE) IV PRN (10:45)
[2021-03-28] MEDS ORDERED: LORazepam INJ 2 MG/ML (ATIVAN) VIAL IVP PRN (10:45)
[2021-03-28] MEDS ORDERED: ONDANSETRON 4 MG/2 ML (SDV) Z0FRAN IV PRN (10:45)
[2021-03-28] MEDS ORDERED: ACETAMINOPHEN 325 MG TABLET PO PRN ×2 (10:45→20:15)
[2021-03-28] MEDS ORDERED: diphenhydrAMINE 25 MG TAB (BENADRYL) PO PRN (10:45)
[2021-03-28] MEDS ORDERED: ONDANSETRON 4 MG (ZOFRAN) ORAL DISSOLVE TAB PO PRN (10:45)
[2021-03-28] MEDS ORDERED: ANTACID SUSP 30 ML UDC (MYLANTA) PO PRN (10:45)
[2021-03-28 10:55] VITALS: BP 182/79
[2021-03-28 10:58] VITALS: BP 160/65
[2021-03-28 11:25] LABS: BILIRUBIN,URINE NEGATIVE (NEGATIVE); CLARITY,URINE CLEAR; COLOR,URINE YELLOW; GLUCOSE, URINE (UA) NEGATIVE (NEGATIVE); KETONES,URINE 1+ (NEGATIVE); LEUKOCYTE ESTERASE ,URINE NEGATIVE (NEGATIVE); NITRITE,URINE POSITIVE (NEGATIVE); PH,URINE 5.5 (5-9); PROTEIN,URINE 2+ (NEGATIVE)
[2021-03-28 11:34] LABS: BACTERIA,URINE MODERATE /HPF; RBC,URINE 0-2 /HPF; SQUAMOUS EPITHELIAL CELL,UR RARE /HPF
[2021-03-28] MEDS ORDERED: AZITHROMYCIN INJECTION 500 MG/5 ML VIAL ONE (12:29)
[2021-03-28] MEDS ORDERED: HYDROcodone/APAP 5 MG/325 MG (LORTAB) TAB PO PRN (13:00)
[2021-03-28] MEDS: NS IV 1000 ML 1,000 ML IV SCH (13:10)
[2021-03-28] MEDS: ENOXAPARIN 40 MG/0.4 ML (LOVENOX) SYR SC SCH (13:13)
[2021-03-28] MEDS: AZITHROMYCIN INJECTION 500 MG in NS (IVPB) 250 ML IV SCH (13:14)
[2021-03-28] MEDS: inSUlin ASPART (NovoLOG) 1 UNIT/0.01 ML (CHARGE PER UNIT) SC SCH ×3 (13:24→20:17)
[2021-03-28] MEDS ORDERED: AZIT250T12 PO (13:29)
[2021-03-28] MEDS ORDERED: DEXA6TAB PO (13:29)
[2021-03-28] MEDS ORDERED: LEVO150T6 PO (13:29)
[2021-03-28] MEDS ORDERED: ACET325T38 PO (13:29)
[2021-03-28] MEDS ORDERED: ROPI0.253 PO (13:29)
[2021-03-28] MEDS ORDERED: DILT180C85 PO (13:29)
[2021-03-28] MEDS ORDERED: DULO20CA19 PO (13:29)
[2021-03-28] MEDS ORDERED: DOCU100C37 PO (13:29)
[2021-03-28] MEDS ORDERED: FERR325T18 PO (13:29)
[2021-03-28] MEDS: RT-ALBUTEROL HFA 8.5 GM INHALER IH SCH ×3 (14:14→21:15)
[2021-03-28 16:00] VITALS: BP 148/65
[2021-03-28] MEDS: DOCUSATE SODIUM 100 MG (COLACE) CAP PO SCH (19:52)
[2021-03-28] MEDS: SENNOSIDES 8.6 MG (SENOKOT) TAB PO SCH (19:52)
[2021-03-28] MEDS: POTASSIUM CL 10MEQ/50ML IVPB 50 ML IV SCH ×2 (19:52→21:21)
[2021-03-28 20:06] VITALS: BP 138/63
[2021-03-28] MEDS ORDERED: FERROUS SULF 325 MG (IRON) TAB PO SCH (20:15)
[2021-03-28] MEDS ORDERED: DONEPEZIL 10 MG (ARICEPT) TAB PO SCH (21:00)
[2021-03-28] MEDS ORDERED: FERROUS SULF 325 MG (IRON) TAB PO ONE (21:24)
[2021-03-28] MEDS ORDERED: DONEPEZIL 10 MG (ARICEPT) TAB ONE (21:26)
[2021-03-28 23:59] VITALS: BP 133/73
[2021-03-29] MEDS: POTASSIUM CL 10MEQ/50ML IVPB 50 ML IV SCH ×2 (00:01→02:26)
[2021-03-29] MEDS: RT-ALBUTEROL HFA 8.5 GM INHALER IH SCH ×3 (03:11→10:37)
[2021-03-29 04:35] VITALS: BP 126/76
[2021-03-29 05:29] LABS: BASOPHILS % (AUTO) 0 % (0-10); EOSINOPHILS % (AUTO) 0 % (0-10); HEMATOCRIT 36 % (35-52); HEMOGLOBIN 11.6 g/dL (11.5-16.0); LYMPHOCYTES # (AUTO) 0.7 10^3/uL (1.0-4.0); LYMPHOCYTES % (AUTO) 6 % (12-44); MEAN CORPUSCULAR HEMOGLOBIN 30 pg (25-34); MEAN CORPUSCULAR HGB CONC 32 g/dL (32-36); MEAN CORPUSCULAR VOLUME 92 fL (80-99); MEAN PLATELET VOLUME 12.2 fL (9.0-12.2); MONOCYTES # (AUTO) 0.4 10^3/uL (0.0-1.0); MONOCYTES % (AUTO) 4 % (0-12); NEUTROPHILS % (AUTO) 89 % (42-75); PLATELET COUNT 181 10^3/uL (130-400); WHITE BLOOD COUNT 11.2 10^3/uL (4.3-11.0)
--- NOTE | 2021-03-29 05:55 | Progress Note - Hospitalist ---
Subjective HPI/CC On Admission Date Seen by Provider: Mar 29, 2021 Time Seen by Provider: 11:00 CC: Acute respiratory failure HPI: This is a very debilitated 81-year-old white female fdc pt of [facility] who presents with SOB, altered mental status, and Covid-19 pneumonia. She is maxed out on Vapotherm on 40L at 100% currently. She is a DNR so Covid pneumonia protocol initiated and the daughter is very aware she will likely not survive this. Will provide oxygen and monitor closely. Subjective/Events-last exam Patient progressing and declining Maxed on Vapotherm O2 sat 88% Check meds and labs Comfort care protocol will be started Review of Systems Neurological: Confusion Focused Exam Lactate Level 03/28/21 08:15: Lactic Acid Level 1.08 Objective Exam Vital Signs Vital Signs Date Time Temp Pulse Resp B/P (MAP) Pulse Ox O2 Delivery O2 Flow Rate FiO2 03/29/21 20:49 Room Air 03/29/21 19:30 36.9 03/29/21 11:29 72 22 146/68 (94) 95 35.00 95.00 03/29/21 10:37 95 Capillary Refill : Less Than 3 Seconds General Appearance: Anxious, Chronically ill Respiratory: Accessory Muscle Use, Decreased Breath Sounds Cardiovascular: Regular Rate, Rhythm Neurologic/Psychiatric: Alert, Disoriented, Other (Nonverbal) Results/Procedures Lab Laboratory Tests 03/29/21 05:10 Patient resulted labs reviewed. Assessment/Plan Assessment and Plan Assess & Plan/Chief Complaint Assessment: Acute hypoxic respiratory failure maxed on Vapotherm 40 L / 100% COVID-19 pneumonia Dementia Nonverbal Exacerbation of COPD [facility] resident with chronic debility DO NOT RESUSCITATE Plan: COVID-19 protocol DNR Poor prognosis 03/29/2021: Comfort care protocol KATHERIN GABRIEL DO Mar 29, 2021 05:55
[2021-03-29] MEDS: inSUlin ASPART (NovoLOG) 1 UNIT/0.01 ML (CHARGE PER UNIT) SC SCH ×2 (06:00→11:15)
[2021-03-29] MEDS: NS IV 1000 ML 1,000 ML IV SCH (06:45)
[2021-03-29] MEDS ORDERED: LEVOTHYROXINE 150 MCG (LEVOTHROID) TAB PO SCH (07:00)
[2021-03-29 08:00] VITALS: BP 149/68
[2021-03-29] MEDS: SENNOSIDES 8.6 MG (SENOKOT) TAB PO SCH (08:55)
[2021-03-29] MEDS: DOCUSATE SODIUM 100 MG (COLACE) CAP PO SCH (08:55)
[2021-03-29] MEDS ORDERED: VALSARTAN 160 MG (DIOVAN) TABLET PO SCH (09:00)
[2021-03-29] MEDS ORDERED: DOCUSATE SODIUM 100 MG (COLACE) CAP PO SCH (09:00)
[2021-03-29] MEDS ORDERED: DULoxetine 20 MG (CYMBALTA) CAP PO SCH (09:00)
[2021-03-29 09:09] VITALS: BP 149/68
[2021-03-29] MEDS: AZITHROMYCIN INJECTION 500 MG in NS (IVPB) 250 ML IV SCH (11:22)
[2021-03-29] MEDS: ENOXAPARIN 40 MG/0.4 ML (LOVENOX) SYR SC SCH (11:23)
[2021-03-29 11:29] VITALS: BP 146/68
[2021-03-29] MEDS ORDERED: SALIVA STIMULANT MOUTH SPRAY (BIOTENE) 1.5 OZ MM PRN (14:15)
[2021-03-29] MEDS ORDERED: ARTIFICAL TEARS 0.4 ML UNIT DOSE (REFRESH PLUS) OU PRN (14:15)
[2021-03-29] MEDS ORDERED: RT-ALBUTEROL/IPRATROPIUM 3 ML (DUONEB) VIAL INH PRN (14:15)
[2021-03-29] MEDS ORDERED: BISACODYL 10 MG SUPP (DULCOLAX) PR PRN (14:15)
[2021-03-29] MEDS ORDERED: GLYCOPYRROLATE 0.2 MG/ML (ROBINUL) 2 ML VIAL IV PRN (14:15)
[2021-03-29] MEDS: LORazepam INJ 2 MG/ML (ATIVAN) VIAL IVP PRN ×2 (14:41→20:21)
[2021-03-29] MEDS: morphine INJ 4 MG/ML 1 ML (VIAL/SYRINGE) IV PRN (17:57)
[2021-03-29] MEDS ORDERED: rOPINIRole 0.25 MG (REQUIP) TAB PO SCH (18:00)
[2021-03-29] MEDS: ACETAMINOPHEN 650 MG SUPP (TYLENOL) PR PRN (18:30)
[2021-03-30] MEDS: LORazepam INJ 2 MG/ML (ATIVAN) VIAL IVP PRN ×2 (04:37→10:11)
--- NOTE | 2021-03-30 06:45 | Progress Note - Hospitalist ---
Subjective HPI/CC On Admission Date Seen by Provider: Mar 30, 2021 CC: Acute respiratory failure HPI: This is a very debilitated 81-year-old white female half-way pt of [facility] who presents with SOB, altered mental status, and Covid-19 pneumonia. She is maxed out on Vapotherm on 40L at 100% currently. She is a DNR so Covid pneumonia protocol initiated and the daughter is very aware she will likely not survive this. Will provide oxygen and monitor closely. Focused Exam Lactate Level 03/28/21 08:15: Lactic Acid Level 1.08 Objective Exam Vital Signs Vital Signs Date Time Temp Pulse Resp B/P (MAP) Pulse Ox O2 Delivery O2 Flow Rate FiO2 03/30/21 08:12 Room Air 03/29/21 19:30 36.9 03/29/21 11:29 72 22 146/68 (94) 95 35.00 95.00 03/29/21 10:37 95 Capillary Refill : Less Than 3 Seconds Results/Procedures Lab Patient resulted labs reviewed. Assessment/Plan Assessment and Plan Assess & Plan/Chief Complaint Assessment: Acute hypoxic respiratory failure maxed on Vapotherm 40 L / 100% COVID-19 pneumonia Dementia Nonverbal Exacerbation of COPD alf resident with chronic debility DO NOT RESUSCITATE Plan: COVID-19 protocol DNR Poor prognosis 03/29/2021: Comfort care protocol KATHERIN GABRIEL DO Mar 30, 2021 06:45
[2021-03-30] MEDS: morphine INJ 4 MG/ML 1 ML (VIAL/SYRINGE) IV PRN ×2 (10:11→15:04)
[2021-03-30] MEDS: ACETAMINOPHEN 650 MG SUPP (TYLENOL) PR PRN (10:11)
[2021-03-30] MEDS ORDERED: LORA2ORA PO (11:53)
[2021-03-30] MEDS ORDERED: MORP20SO PO (11:53)
--- NOTE | 2021-03-30 11:54 | Discharge Summary ---
Discharge Summary Hospital Course Was the Problem List Reviewed?: Yes Problems/Dx: (1) Respiratory failure Status: Acute Qualifiers: Qualified Codes: J96.01 - Acute respiratory failure with hypoxia (2) COVID-19 Status: Acute (3) Severe dementia Status: Acute Hospital Course Date of Admission: Mar 28, 2021 at 09:47 Admission Diagnosis : [place] Phys[place] [place] Date of Discharge: 03/30/21 Discharge Diagnosis: Acute hypoxic respiratory failure, COVID-19 pneumonia, severe dementia nonverbal Hospital Course: Pt had a brief hospital course after she was admitted for COVID-19 pneumonia. S he has a past medical history of severe dementia and nonverbal status. She was placed on protocol meds and maxed on Vapotherm but remained on O2. Comfort care protocol was initiated and she was deemed stable to discharge to the shelter on Comfort Care. Labs and Pending Lab Test: Microbiology 03/28/21 Blood Culture - Preliminary, Resulted No growth 03/28/21 Urine Culture - Final, Complete Escherichia coli Home Meds Active Lorazepam Intensol (Lorazepam) 2 Mg/1 Ml Oral.conc 1 Mg PO Q2H PRN Morphine Sulfate 20 Mg/5 Ml Solution 5 Mg PO Q3HR Reported Tylenol (Acetaminophen) 325 Mg Tablet 650 Mg PO Q4H PRN Azithromycin 250 Mg Tablet 250 Mg PO DAILY FILLED 03-27-2021 #6/5 DAY SUPPLY Ropinirole HCl 0.25 Mg Tablet 0.25 Mg PO 1800 Levothyroxine Sodium 150 Mcg Tablet 150 Mcg PO DAILY Ferrous Sulfate 325 Mg Tablet 325 Mg PO Q48H Diltiazem 24Hr ER (Diltiazem HCl) 180 Mg Cap.er.24h 180 Mg PO DAILY HOLD FOR SBP <100, HR <60 Duloxetine HCl 20 Mg Capsule.dr 20 Mg PO DAILY Docusate Sodium 100 Mg Capsule 100 Mg PO DAILY Dexamethasone 6 Mg Tablet 6 Mg PO DAILY FILLED 03-27-2021 #8/8 DAY SUPPLY Donepezil HCl 10 Mg Tablet 10 Mg PO HS Candesartan Cilexetil 32 Mg Tablet 32 Mg PO DAILY HOLD FOR SBP<100 Assessment/Pt Instructions Hospice on discharge Discharge Planning: <30 minutes discharge planning Discharge Instructions Discharge Diet: No Restrictions Discharge Physical Examination Vital Signs Vital Signs Date Time Temp Pulse Resp B/P (MAP) Pulse Ox O2 Delivery O2 Flow Rate FiO2 03/30/21 08:12 Room Air 03/29/21 19:30 36.9 03/29/21 11:29 72 22 146/68 (94) 95 35.00 95.00 03/29/21 10:37 95 General Appearance: Chronically ill Allergies: Coded Allergies: Sulfa (Sulfonamide Antibiotics) (Unverified Allergy, Mild, HIVES, 04/21/05) codeine (Unverified Allergy, Mild, NAUSEA, 04/21/05) atorvastatin (Verified Allergy, Unknown, 04/21/05) cephalexin (Unverified Allergy, Unknown, PT HAS REC ROCEPHIN,CEFTIN & AUGMENTIN IN PAST, 12/19/11) PER DR. WASSERMAN'S OFFICE PT HAS RECEIVED ROCEPHIN, CEFTIN, AND AUGMENTIN IN PAST WITHOUT PROBLEMS doxycycline (Verified Allergy, Unknown, 04/21/05) gatifloxacin (Verified Allergy, Unknown, 04/21/05) grepafloxacin (Verified Allergy, Unknown, 04/21/05) indapamide (Unverified Allergy, Unknown, 11/21/14) penbutolol (Verified Allergy, Unknown, 04/21/05) sulfamethoxazole (Verified Allergy, Unknown, 04/21/05) trimethoprim (Verified Allergy, Unknown, 04/21/05) Discharge Summary Date of Admission Mar 28, 2021 at 09:47 Date of Discharge Discharge Date: Mar 30, 2021 Admission Diagnosis Assessment: Acute hypoxic respiratory failure maxed on Vapotherm 40 L / 100% COVID-19 pneumonia Dementia Nonverbal Exacerbation of COPD correction resident with chronic debility DO NOT RESUSCITATE Plan: COVID-19 protocol DNR Poor prognosis Comfort Measures/ End of Life Care: Comfort Measures Discharge Diagnosis Assessment: Acute hypoxic respiratory failure maxed on Vapotherm 40 L / 100% COVID-19 pneumonia Dementia Nonverbal Exacerbation of COPD correction resident with chronic debility DO NOT RESUSCITATE Plan: COVID-19 protocol DNR Poor prognosis 03/29/2021: Comfort care protocol KATHERIN GABRIEL DO Mar 30, 2021 11:54
== END 2021-03-30 14:30 | disposition hospice, inpatient (51) | DRG 177 ==
LOC: EDUNIT# 08:00 → ER 08:02 → 4TH 09:47
PROVIDERS: ADMIT Internal Medicine; ATTEND Internal Medicine
DX: U07.1 COVID-19 (principal); J12.82 Pneumonia due to coronavirus disease 2019; J96.01 Acute respiratory failure with hypoxia; J44.1 Chronic obstructive pulmonary disease with (acute) exacerbation; J44.0 Chronic obstructive pulmonary disease with (acute) lower respiratory infection; Z66 Do not resuscitate; Z51.5 Encounter for palliative care; F03.90 Unspecified dementia, unspecified severity, without behavioral disturbance, psychotic disturbance, mood disturbance, and anxiety; E78.00 Pure hypercholesterolemia, unspecified; I10 Essential (primary) hypertension; M19.90 Unspecified osteoarthritis, unspecified site; E11.9 Type 2 diabetes mellitus without complications; E89.0 Postprocedural hypothyroidism; Z92.3 Personal history of irradiation; Z85.3 Personal history of malignant neoplasm of breast; Z85.850 Personal history of malignant neoplasm of thyroid; F41.9 Anxiety disorder, unspecified; F32.A Depression, unspecified; Z79.899 Other long term (current) drug therapy; Z88.1 Allergy status to other antibiotic agents; Z88.2 Allergy status to sulfonamides; Z88.5 Allergy status to narcotic agent; Z73.0 Burn-out
CPT/HCPCS: 36410; 36415; 71045; 76937; 80053; 81000; 82728; 82947; 83605; 83615; 83880; 84145; 84484; 85007; 85025; 85027; 85379; 85384; 85610; 85730; 86141; 87040; 87077; 87088; 87186; 93005; 93041; 94640